=== PATIENT | female | born 1940 | race Caucasian/White ===

== ENCOUNTER 2018-01-30 15:20 | Inpatient (IN) ==
[2018-01-30 19:34] LABS: Hemoglobin 9.3 g/dL (11.5-15.4)
[2018-01-30 19:36] LABS: Hematocrit 31.9 % (35.3-44.9); Mean Corpuscular HGB Conc 29.2 g/dL (31.6-35.5); Mean Corpuscular Hemoglobin 21.2 pg (28.0-33.3); Mean Corpuscular Volume 72.8 fL (83.0-100.0); Mean Platelet Volume 8.8 fL (9.4-12.4); Platelet Count 305 K/mcL (140-400); Red Blood Count 4.38 M/mcL (3.82-4.97)
[2018-01-30 19:42] LABS: INR 1.5; Prothrombin Time 16.6 Seconds (9.4-12.1)
[2018-01-30 20:00] LABS: BUN/Creatinine Ratio 11 (6-26); Blood Urea Nitrogen 10 mg/dL (8-23); Calcium 9.5 mg/dL (8.6-10.3); Carbon Dioxide 26 mEq/L (23-29); Chloride 100 mEq/L (98-107); Glucose 234 mg/dL (70-105); Osmolality,Calculated 287 (280-300); Potassium 3.4 mEq/L (3.5-5.1); Sodium 135 mEq/L (136-145); eGFR For African Americans > 60 (> 60); eGFR For Non-African Americans 60 (> 60)
[2018-01-30 20:09] LABS: Basophils # 0.2 K/mcL (0.0-0.2); Lymphocytes # 0.9 K/mcL (0.6-4.6); Monocytes # 0.2 K/mcL (0.0-1.3); Neutrophils # 9.3 K/mcL (1.6-8.9); Platelet Estimate Normal (Normal)
[2018-01-30 20:10] LABS: Acanthocytes 1+ (Not Present); Hypochromasia Present (Not Present); Microcytosis Present (Not Present); Schistocytes 1+ (Not Present)
[2018-01-30 21:08] LABS: Bilirubin,Urine Negative (Negative); Blood,Urine Negative (Negative); Clarity,Urine Cloudy (Clear); Color,Urine Yellow (Yellow); Glucose,Urine (UA) 100 mg/dL (Normal); Ketones,Urine Negative (Negative); Leukocyte Esterase,Urine Moderate (Negative); Nitrite,Urine Negative (Negative); PH,Urine 6.5 pH Units (5.0-8.0); Protein,Urine Negative (Neg-Trace); Specific Gravity,Urine 1.016 (1.010-1.025); Urobilinogen,Urine Normal (Normal)
[2018-01-30 21:10] LABS: Bacteria,Urine None Seen per hpf (None-Few); Hyaline Casts,Urine None Seen per lpf (None-Few); Squamous Epithelial Cell,Urine Many per lpf (None-Few)
--- NOTE | 2018-01-30 21:38 | Emergency Department Note ---
Disposition Clinical Impression: Radius fracture Qualifiers: Encounter type: subsequent encounter Radius location: distal Fracture type: closed Fracture morphology: unspecified fracture morphology Laterality: right Fracture healing: with nonunion Qualified Code(s): S52.501K - Unspecified fracture of the lower end of right radius, subsequent encounter for closed fracture with nonunion Ulnar fracture Qualifiers: Encounter type: subsequent encounter Ulna location: distal Fracture type: closed Fracture morphology: unspecified fracture morphology Laterality: right Fracture healing: with nonunion Qualified Code(s): S52.601K - Unspecified fracture of lower end of right ulna, subsequent encounter for closed fracture with nonunion Anemia Qualifiers: Anemia type: unspecified type Qualified Code(s): D64.9 - Anemia, unspecified Disposition: Admitted As Inpatient Condition: Good Referrals: Kumar Ramos MD [Primary Care Provider] - Forms: ED Satisfaction Letter Time of Disposition: 21:47 General Adult HPI - General Chief complaint: ED Extremity Injury, Upper Stated complaint: Needs admitted Time Seen by Provider: 01/30/18 18:42 Source: patient, family Mode of arrival: wheelchair Limitations: no limitations Nursing Notes Reviewed: Yes Vital Signs Reviewed: Yes - History of Present Illness HPI Narrative: Female patient complaining of right arm pain. She has a splint on this arm at this time. She was diagnosed with a right arm fracture earlier today and was seen by Dr. Reece outpatient. She states that she is unable to care for herself at home and has no one to assist her with this. She is scheduled for surgery tomorrow on this extremity. Pain Scale: 10 - Related Data Home Medications Medication Instructions Recorded Confirmed Albuterol Sulfate [Albuterol 2 puff IH Q4H PRN 07/27/16 01/30/18 Inhaler] Apixaban [Eliquis] 5 mg PO BID 07/27/16 01/30/18 Atorvastatin Calcium [Lipitor] 80 mg PO HS 07/27/16 01/30/18 BuPROPion XL (24 HR) [Wellbutrin 150 mg PO DAILY 07/27/16 01/30/18 XL] Budesonide/Formoterol 80/4.5 2 puff IH BID 07/27/16 01/30/18 [Symbicort 80/4.5] Diltiazem HCl [Cardizem LA] 120 mg PO DAILY 07/27/16 01/30/18 Escitalopram [Lexapro] 20 mg PO DAILY 07/27/16 01/30/18 Pantoprazole Sodium [Protonix] 40 mg PO DAILY 07/27/16 01/30/18 Betamethasone Dipropionate 1 appl TP DAILY 01/30/18 01/30/18 Cetirizine HCl [Zyrtec] 10 mg PO DAILY PRN 01/30/18 01/30/18 Famotidine [Heartburn Prevention] 20 mg PO DAILY 01/30/18 01/30/18 Gabapentin [Neurontin] 100 mg PO HS PRN 01/30/18 01/30/18 Losartan/Hydrochlorothiazide 1 each PO DAILY 01/30/18 01/30/18 [Hyzaar 100-25 Tablet] Montelukast [Singulair] 10 mg PO HS 01/30/18 01/30/18 Triamcinolone Acet 0.1% CRM 1 appl TP BID 01/30/18 01/30/18 [Kenalog] hydrOXYzine pamoate [HydrOXYzine 25 mg PO HS 01/30/18 01/30/18 Pamoate] Allergies Allergy/AdvReac Type Severity Reaction Status Date / Time No Known Allergies Allergy Verified 01/30/18 11:00 All systems ED: reviewed and negative except as stated. Constitutional: Denies: fever ENT ED: Denies: throat pain, congestion Cardiovascular: Denies: chest pain, palpitations, syncope Respiratory: Denies: cough, dyspnea, wheezes Gastrointestinal: Denies: abdominal pain, nausea, vomiting, diarrhea Musculoskeletal: Reports: neck pain (From her fall). Denies: back pain Integumentary: Reports: other (Complaining of itching to her abdomen. No rash present). Denies: rash Neurological: Denies: headache Past Medical History - Past Medical History Attestation: Yes The following information was validated with the patient. Source: patient Medical history: Reports: atrial fibrillation, CVA, hyperlipidemia, hypertension Surgical history: Reports: no surgical history Psychiatric history: Reports: depression - Social History Smoking Status: Never smoker Smokeless Tobacco Status: No Alcohol use: Reports: none Drug use: Reports: none Physical Exam - General Limitations: no limitations General appearance: alert, in no apparent distress - Head Head exam: atraumatic, normocephalic, normal inspection - Eye Eye exam: Present: normal appearance, PERRL, EOMI - ENT ENT exam: normal exam, normal oropharynx, mucous membranes moist - Neck Neck exam: Present: normal inspection, full ROM, trachea midline - Chest Chest inspection: Present: normal inspection, symmetric chest wall rise. Absent : tenderness - Respiratory Respiratory exam: Present: normal lung sounds bilaterally. Absent: respiratory distress, accessory muscle use - Cardiovascular Cardiovascular exam: Present: regular rate, irregular rhythm, normal heart sounds - Abdominal Exam Abdominal exam: Present: soft, Non-Tender. Absent: tenderness, distention, guarding, rebound, rigidity, organomegaly - Extremities Exam Extremities exam: Present: normal capillary refill, other (Splinting to right upper extremity. Moving all other extremities normally.) - Back Exam Back exam: Present: normal inspection, full ROM. Absent: tenderness - Neurological Exam Neurological exam: Present: alert, oriented X3 - Psychiatric Psychiatric exam: Present: normal affect, normal mood - Skin Skin exam: Present: warm, dry, intact, normal color Course Course Narrative: Well-appearing female patient presenting to the emergency department complaining of right arm pain. She states that she is unable to take care of herself at home. She does have a fracture to her right arm that she is scheduled for surgery with Dr. Smith tomorrow. She saw him outpatient today. She was evaluated at this facility earlier today. We will admit patient to the hospital for preop clearance and inability to care for herself at home. - Consultations Consultation #1: Dr Bridges accepted the patient's stable condition. Time: 19:58 Vital Signs Temperature 97.9 F 01/30/18 15:50 Pulse Rate 61 01/30/18 15:50 Respiratory Rate 14 01/30/18 15:50 Blood Pressure 68/49 01/30/18 15:50 O2 Sat by Pulse Oximetry 93 01/30/18 15:50 Temperature 97.9 F 01/30/18 15:50 Pulse Rate 84 01/30/18 20:45 Respiratory Rate 16 01/30/18 20:45 Blood Pressure 138/62 01/30/18 20:45 O2 Sat by Pulse Oximetry 97 01/30/18 20:45 Oxygen Delivery Oxygen Delivery Room Air Medical Decision Making - Medical Records Medical records reviewed: Yes I reviewed the patient's medical records. - Lab Data Lab results reviewed: Yes I reviewed the patient's lab results. Result diagrams: 01/30/18 19:11 01/30/18 19:11 Lab Results 01/30/18 01/30/18 01/30/18 Range/Units 19:11 19:11 19:11 WBC 10.6 (4.3-11.1) K/mcL RBC 4.38 (3.82-4.97) M/mcL Hgb 9.3 L (11.5-15.4) g/dL Hct 31.9 L (35.3-44.9) % MCV 72.8 L (83.0-100.0) fL MCH 21.2 L (28.0-33.3) pg MCHC 29.2 L (31.6-35.5) g/dL RDW 15.0 H (11.5-14.5) % Plt Count 305 (140-400) K/mcL MPV 8.8 L (9.4-12.4) fL Seg Neutrophils % 88.0 % Lymphocytes % 8.0 % Monocytes % 2.0 % Basophils % 2.0 % Neutrophils # 9.3 H (1.6-8.9) K/mcL Lymphocytes # 0.9 (0.6-4.6) K/mcL Monocytes # 0.2 (0.0-1.3) K/mcL Basophils # 0.2 (0.0-0.2) K/mcL Platelet Estimate Normal (Normal) Hypochromasia Present A (Not Present) Microcytosis Present A (Not Present) Acanthocytes (Spur) 1+ A (Not Present) Schistocytes 1+ A (Not Present) PT 16.6 H (9.4-12.1) Seconds INR 1.5 Sodium 135 L (136-145) mEq/L Potassium 3.4 L (3.5-5.1) mEq/L Chloride 100 (98-107) mEq/L Carbon Dioxide 26 (23-29) mEq/L BUN 10 (8-23) mg/dL Creatinine 0.91 (0.60-1.20) mg/dL Est GFR ( Amer) > 60 (> 60) Est GFR (Non-Af Amer) 60 (> 60) BUN/Creatinine Ratio 11 (6-26) Glucose 234 H (70-105) mg/dL Calculated Osmolality 287 (280-300) Calcium 9.5 (8.6-10.3) mg/dL Urine Color (Yellow) Urine Clarity (Clear) Urine pH (5.0-8.0) pH Units Ur Specific [place] (1.010-1.025) Urine Protein (Neg-Trace) mg/dL Urine Glucose (UA) (Normal) mg/dL Urine Ketones (Negative) mg/dL Urine Blood (Negative) Urine Nitrite (Negative) Urine Bilirubin (Negative) Urine Urobilinogen (Normal) mg/dL Ur Leukocyte Esterase (Negative) Urine Microscopic RBC (0-3) per hpf Urine Microscopic WBC (0-3) per hpf Ur Squamous Epith Cells (None-Few) per lpf Urine Bacteria (None-Few) per hpf Hyaline Casts (None-Few) per lpf Ur Culture Indicated? (NO) 01/30/18 Range/Units 21:02 WBC (4.3-11.1) K/mcL RBC (3.82-4.97) M/mcL Hgb (11.5-15.4) g/dL Hct (35.3-44.9) % MCV (83.0-100.0) fL MCH (28.0-33.3) pg MCHC (31.6-35.5) g/dL RDW (11.5-14.5) % Plt Count (140-400) K/mcL MPV (9.4-12.4) fL Seg Neutrophils % % Lymphocytes % % Monocytes % % Basophils % % Neutrophils # (1.6-8.9) K/mcL Lymphocytes # (0.6-4.6) K/mcL Monocytes # (0.0-1.3) K/mcL Basophils # (0.0-0.2) K/mcL Platelet Estimate (Normal) Hypochromasia (Not Present) Microcytosis (Not Present) Acanthocytes (Spur) (Not Present) Schistocytes (Not Present) PT (9.4-12.1) Seconds INR Sodium (136-145) mEq/L Potassium (3.5-5.1) mEq/L Chloride (98-107) mEq/L Carbon Dioxide (23-29) mEq/L BUN (8-23) mg/dL Creatinine (0.60-1.20) mg/dL Est GFR ( Amer) (> 60) Est GFR (Non-Af Amer) (> 60) BUN/Creatinine Ratio (6-26) Glucose (70-105) mg/dL Calculated Osmolality (280-300) Calcium (8.6-10.3) mg/dL Urine Color Yellow (Yellow) Urine Clarity Cloudy A (Clear) Urine pH 6.5 (5.0-8.0) pH Units Ur Specific [place] 1.016 (1.010-1.025) Urine Protein Negative (Neg-Trace) mg/dL Urine Glucose (UA) 100 H (Normal) mg/dL Urine Ketones Negative (Negative) mg/dL Urine Blood Negative (Negative) Urine Nitrite Negative (Negative) Urine Bilirubin Negative (Negative) Urine Urobilinogen Normal (Normal) mg/dL Ur Leukocyte Esterase Moderate H (Negative) Urine Microscopic RBC 3-5 H (0-3) per hpf Urine Microscopic WBC 5-15 H (0-3) per hpf Ur Squamous Epith Cells Many H (None-Few) per lpf Urine Bacteria None Seen (None-Few) per hpf Hyaline Casts None Seen (None-Few) per lpf Ur Culture Indicated? NO. (NO) - EKG Data EKG #1 EKG attestation: Yes I reviewed and interpreted this EKG. EKG results narrative: Patient EKG was interpreted by myself without benefit of formal cardiology interpretation showing a rate of 73 bpm with atrial fibrillation and nonspecific ST changes, unchanged from prior EKG. Attestation Statement - Attestation Attestation: I examined this patient and my medical decision-making was reviewed with the Resident Physician, Dr. Salter. I agree with the documented findings, disposition and treatment plan as described except to the extent set forth below. Patient is a 69-year-old white female who presents to the emergency department for the second time today after her initial evaluation demonstrated a displaced right distal radius and ulna fracture. During her initial evaluation in the ED she had a closed reduction of this fracture and she was sent over to Dr. Reece' s office for evaluation. He determined that she could be scheduled for outpatient surgery tomorrow but due to family issues patient feels she is unable to care for herself at home tonight. Because of this situation she was sent back to the emergency department this afternoon was seen by the social services assistant who offered extended care facility care overnight physician patient adamantly refused and it was confirmed to the social services assistant that her daughter who is currently on vacation is unable to come home to care for her tonight. I agree with patient's physical exam findings as documented, vital signs are stable. Patient underwent preop testing for her repeat visit in preparation for surgery tomorrow and will be admitted to the hospitalist service overnight for assistance with ADLs. Patient will remain nothing by mouth for surgery. Patient's lab evaluation, EKG, were done in the emergency department. Case was discussed with hospitalist who accepted the patient for admission.
--- NOTE | 2018-01-31 00:21 | Internal Med History&Physical ---
Date of Encounter: 01/31/18 Time of Encounter: 00:18 Assessment and Plan (1) Radius fracture Current visit: Yes Status: Acute Mechanical fall with right on ulnar and radial fracture Qualifiers: Encounter type: subsequent encounter Radius location: distal Fracture type: closed Fracture morphology: unspecified fracture morphology Laterality : right Fracture healing: with nonunion Qualified Code(s): S52.501K - Unspecified fracture of the lower end of right radius, subsequent encounter for closed fracture with nonunion (2) Ulnar fracture Current visit: Yes Status: Acute Qualifiers: Encounter type: subsequent encounter Ulna location: distal Fracture type : closed Fracture morphology: unspecified fracture morphology Laterality: right Fracture healing: with nonunion Qualified Code(s): S52.601K - Unspecified fracture of lower end of right ulna, subsequent encounter for closed fracture with nonunion (3) Afib Current visit: No Status: Chronic Patient admitted fibrillation rate is well controlled Qualifiers: Atrial fibrillation type: paroxysmal Qualified Code(s): I48.0 - Paroxysmal atrial fibrillation (4) Anticoagulation adequate with anticoagulant therapy Current visit: No Status: Acute would hold anticoagulation (5) Hypertension Current visit: No Status: Chronic Chronic blood pressure well controlled Qualifiers: Hypertension type: essential hypertension Qualified Code(s): I10 - Essential (primary) hypertension Internal Medicine - H&P: HPI Chief complaint: radial and ulna fracture Admitted From: Emergency Dept Plans for Post Hospital Care: Home History of present illness: Ms. Green is a 77 year old female Patient with history of atrial fibrillation, CVA, high cholesterol, hypertension , patient sustained a mechanical fall presented to emergency room with right arm pain x-ray showed right radial and ulnar fracture patient was then sent to orthopedic office was seen bY Fr Amor and then sent back to the emergency room for admission for surgery plan for tomorrow. Fall was not syncope no loss of consciousness and no head injury. Past Med Surg Social Fam HX - Past Medical History Medical history: atrial fibrillation, CVA, hyperlipidemia, hypertension Psychiatric history: depression - Past Surgical History Surgical History: no surgical history - Social History Smoking Status: Never smoker Smokeless Tobacco Status: No Alcohol use: none Drug use: none - Family History Father Family Member Ethnicity: Non- Living Status: Hx Family Neuromuscular Disorders: Yes Internal Medicine - H&P: Meds Albuterol Sulfate [Albuterol Inhaler] 2 puff IH Q4H PRN 07/27/16 [History] Apixaban [Eliquis] 5 mg PO BID 07/27/16 [History] Atorvastatin Calcium [Lipitor] 80 mg PO HS 07/27/16 [History] BuPROPion XL (24 HR) [Wellbutrin XL] 150 mg PO DAILY 07/27/16 [History] Budesonide/Formoterol 80/4.5 [Symbicort 80/4.5] 2 puff IH BID 07/27/16 [History ] Diltiazem HCl [Cardizem LA] 120 mg PO DAILY 07/27/16 [History] Escitalopram [Lexapro] 20 mg PO DAILY 07/27/16 [History] Pantoprazole Sodium [Protonix] 40 mg PO DAILY 07/27/16 [History] Betamethasone Dipropionate 1 appl TP DAILY 01/30/18 [History] Cetirizine HCl [Zyrtec] 10 mg PO DAILY PRN 01/30/18 [History] Famotidine [Heartburn Prevention] 20 mg PO DAILY 01/30/18 [History] Gabapentin [Neurontin] 100 mg PO HS PRN 01/30/18 [History] Losartan/Hydrochlorothiazide [Hyzaar 100-25 Tablet] 1 each PO DAILY 01/30/18 [ History] Montelukast [Singulair] 10 mg PO HS 01/30/18 [History] Triamcinolone Acet 0.1% CRM [Kenalog] 1 appl TP BID 01/30/18 [History] hydrOXYzine pamoate [HydrOXYzine Pamoate] 25 mg PO HS 01/30/18 [History] 3 Allergy/AdvReac Type Severity Reaction Status Date / Time No Known Allergies Allergy Verified 01/30/18 11:00 All Systems PM: A 10-system review of systems was performed and is negative for pertinent findings except as documented above in the HPI. - EENT Eyes: no change in vision, no discharge, no pain, no photophobia Ears: no ear discharge, no ear pain, no tinnitus Nose, mouth and throat: no dysphagia, no nasal discharge, no neck pain, no sore throat - Cardiovascular Cardiovascular ROS IM: irregular heart rhythm, palpitations - Respiratory Respiratory: no cough, no dyspnea, no wheezing, no excessive phlegm production - Gastrointestinal Gastrointestinal: no abdominal pain, no diarrhea, no hematemesis, no hematochezia, no melena, no nausea, no vomiting - Genitourinary Genitourinary: no change in urinary stream, no dysuria, no flank pain, no hematuria - Musculoskeletal Musculoskeletal ROS IM: other - Constitutional Vitals: Temp Pulse Resp BP Pulse Ox 98.8 F 91 16 149/79 95 01/30/18 23:35 01/30/18 23:35 01/30/18 23:35 01/30/18 23:35 01/30/18 23:35 - Head Head exam: Present: atraumatic, normocephalic - Eye Eye exam: Present: PERRL, conjuntiva pink, sclera anicteric Pupils: Present: PERRL - Neck Neck exam general surgery: Present: supple, trachea midline. Absent: lymphadenopathy - Respiratory Respiratory exam: Present: CTAB. Absent: accessory muscle use, rales, rhonchi, wheezes - Cardiovascular Cardiovascular exam: Present: RRR, +S1, +S2. Absent: diastolic murmur, gallop, rubs, systolic murmur - GI/Abdominal GI/Abdominal exam: Present: normal bowel sounds, soft, no peritoneal signs. Absent: distended, tenderness Internal Med - H&P Results - Labs CBC & Chem 7: 01/30/18 19:11 01/30/18 19:11
[2018-01-31] MEDS ORDERED: Acetaminophen 325 MG TABLET PO PRN (00:25)
[2018-01-31] MEDS ORDERED: Naloxone 0.4 MG/ML INJ IVP PRN (00:25)
[2018-01-31] MEDS ORDERED: Loratadine 10 MG TABLET PO PRN (00:28)
[2018-01-31] MEDS ORDERED: Gabapentin 100 MG CAPSULE PO PRN (00:28)
[2018-01-31] MEDS: traMADol 50 MG TABLET PO PRN ×2 (01:49→20:24)
[2018-01-31] MEDS: 0.9 % Sodium Chloride 1,000 ML IVC SCH ×2 (01:49→23:23)
[2018-01-31] MEDS: *HR* HYDROmorphone (PF) 1 MG/ML SYRINGE IVP PRN ×2 (03:54→10:34)
[2018-01-31 05:24] LABS: Hematocrit 31.8 % (35.3-44.9); Hemoglobin 9.4 g/dL (11.5-15.4); Mean Corpuscular HGB Conc 29.6 g/dL (31.6-35.5); Mean Corpuscular Volume 71.1 fL (83.0-100.0); Platelet Count 329 K/mcL (140-400); Red Blood Count 4.47 M/mcL (3.82-4.97)
[2018-01-31 05:44] LABS: Alanine Aminotransferase 13 Units/L (7-52); Albumin/Globulin Ratio 1.6 (1.1-2.2); Alkaline Phosphatase 68 Units/L (34-104); Aspartate Amino Transferase 16 Units/L (13-39); BUN/Creatinine Ratio 11 (6-26); Bilirubin,Total 0.7 mg/dL (0.3-1.0); Blood Urea Nitrogen 8 mg/dL (8-23); Calcium 9.9 mg/dL (8.6-10.3); Carbon Dioxide 28 mEq/L (23-29); Chloride 100 mEq/L (98-107); Globulin 2.5 g/dL (2.4-3.5); Glucose 94 mg/dL (70-105); Magnesium 1.6 mg/dL (1.6-2.6); Osmolality,Calculated 282 (280-300); Potassium 3.2 mEq/L (3.5-5.1); Sodium 137 mEq/L (136-145); Total Protein 6.5 g/dL (6.4-8.9); eGFR For African Americans > 60 (> 60); eGFR For Non-African Americans > 60 (> 60)
[2018-01-31] MEDS: Budesonide/Formoterol 80/4.5 MDI IH SCH ×2 (08:29→19:58)
[2018-01-31] MEDS ORDERED: Diltiazem CD (24hr) 120 MG CAPSULE PO SCH (09:00)
[2018-01-31] MEDS ORDERED: BETAMETHASONE DIPROPIONATE TP SCH (09:00)
[2018-01-31] MEDS: Famotidine 20 MG TABLET PO SCH (10:33)
[2018-01-31] MEDS: Losartan/HCTZ 50-12.5 TABLET PO SCH (10:33)
[2018-01-31] MEDS: BuPROPion XL (24 HR) 150 MG TABLET PO SCH (10:34)
[2018-01-31] MEDS: Ipratropium/Albuterol Neb 3 ML IH SCH ×3 (11:21→19:58)
--- NOTE | 2018-01-31 12:14 | Cardiology Consult Note ---
Addendum entered and electronically signed by Ravinder Pyle CNP 01/31/18 14:12: Since pt is unable to achieve 4METS of activity, need pharmacologic stress test to further evaluate/risk stratify. Plan for stress test tomorrow. [id number] is 6 (Prior CVA, HTN, Age, Female). Recommend heparin gtt to bridge while off Eliquis since she is high CVA risk. Original Note: <Ravinder Pyle - Last Filed: 01/31/18 13:13> Date of Encounter: 01/31/18 Time of Encounter: 12:08 Assessment and Plan (1) Pre-operative cardiovascular examination Current Visit: Yes Status: Acute Pre-op cardiovascular risk stratification for right arm surgery. No hx of CAD or CHF. Cardiac hx includes A-Fib. Pt denies chest pain. Does endorse exertional dyspnea that is chronic. She is unable to achieve 4METS. 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 TTE to evaluate structure and function--already ordered. EKGs reviewed. EKG today shows diffuse ST depression compared to yesterday. A- Fib. Will discuss with Dr. Dominguez to determine if any further cardiac work-up is warranted aside from TTE. Await TTE results and evaluation by Dr. Dominguez to risk stratify. (2) Afib Current Visit: Yes Status: Chronic Known hx of A-Fib, diagnosed 3 years ago at time of CVA. 12 hr tele AVG HR 92. K 3.2--replace. Current HR at bedside low 100s. Will increase Cardizem CD from 120 to 240mg daily. Anticoagulated on Eliquis, held on admission given fall, fx and pending surgery. [id number] (Age, HTN, Female). High CVA risk not on anticoagulation. Recommend resuming Eliquis once okay with surgery. If recurrent falls on anticoagulation, will need to rediscuss risks and benefits of AC. Qualifiers: Atrial fibrillation type: unspecified Qualified Code(s): I48.91 - Unspecified atrial fibrillation Discussion w patient/family: The assessment and plan as outlined above was discussed with the patient and/or family members who expressed understanding and agreement. All questions were answered. Thank you for involving us in the care of your patient. Please call with any questions. I will discuss all the above with Dr. Dominguez and make changes as necessary. History of Present Illness Consult date: 01/31/18 Requesting physician: Liliana Marie Consult reason: A-Fib, Pre-op Chief complaint: right arm pain History of present illness: Ms. Green is a 77 year old female with PMH of atrial fibrillation anticoagulated on Eliquis, CVA 3 years ago, HLD, HTN, that presented to ED with right arm pain after a mechanical fall. Pt reports she got up to use the bathroom and lost her balance and fell. Denies syncope. X-ray showed right radial and ulnar fracture. Plan is to undergo surgery. Mild RVR noted this AM- HR low 100s. HR at bedside currently 80s-low 100s. Pt denies chest pain or any hx of CAD. She endorses exertional dyspnea, not new. She is not very active and does not climb stairs since having her CVA. No recent cardiac testing on file. EKG reviewed. A-Fib, rate 93, diffuse ST depression. Past Med Surg Social Fam HX - Past Medical History Medical history: atrial fibrillation, CVA, hyperlipidemia, hypertension Psychiatric history: depression - Past Surgical History Surgical History: no surgical history - Social History Smoking Status: Never smoker Smokeless Tobacco Status: No Alcohol use: none Drug use: none - Family History Father Family Member Ethnicity: Non- Living Status: Hx Family Neuromuscular Disorders: Yes Medications and Allergies Albuterol Sulfate [Albuterol Inhaler] 2 puff IH Q4H PRN 07/27/16 [History] Apixaban [Eliquis] 5 mg PO BID 07/27/16 [History] Atorvastatin Calcium [Lipitor] 80 mg PO HS 07/27/16 [History] BuPROPion XL (24 HR) [Wellbutrin XL] 150 mg PO DAILY 07/27/16 [History] Budesonide/Formoterol 80/4.5 [Symbicort 80/4.5] 2 puff IH BID 07/27/16 [History ] Diltiazem HCl [Cardizem LA] 120 mg PO DAILY 07/27/16 [History] Escitalopram [Lexapro] 20 mg PO DAILY 07/27/16 [History] Pantoprazole Sodium [Protonix] 40 mg PO DAILY 07/27/16 [History] Betamethasone Dipropionate 1 appl TP DAILY 01/30/18 [History] Cetirizine HCl [Zyrtec] 10 mg PO DAILY PRN 01/30/18 [History] Famotidine [Heartburn Prevention] 20 mg PO DAILY 01/30/18 [History] Gabapentin [Neurontin] 100 mg PO HS PRN 01/30/18 [History] Losartan/Hydrochlorothiazide [Hyzaar 100-25 Tablet] 1 each PO DAILY 01/30/18 [ History] Montelukast [Singulair] 10 mg PO HS 01/30/18 [History] Triamcinolone Acet 0.1% CRM [Kenalog] 1 appl TP BID 01/30/18 [History] hydrOXYzine pamoate [HydrOXYzine Pamoate] 25 mg PO HS 01/30/18 [History] 3 Allergy/AdvReac Type Severity Reaction Status Date / Time No Known Allergies Allergy Verified 01/30/18 11:00 All Systems Review: The remainder of the systems were reviewed and are negative - Cardiovascular Cardiovascular: as per HPI, dyspnea on exertion - Respiratory Respiratory: cough, dyspnea Physical Examination Vital Signs, Last 4 Hours Temp Pulse Resp BP Pulse Ox 01/31/18 11:25 18 93 01/31/18 10:35 98.1 F 94 14 154/88 93 01/31/18 08:29 18 165/86 91 Vital Signs Temp Pulse Resp BP Pulse Ox 01/31/18 11:25 18 93 01/31/18 10:35 98.1 F 94 14 154/88 93 01/31/18 08:29 18 165/86 91 01/31/18 07:23 98.3 F 89 15 165/86 90 01/31/18 04:35 18 90 01/31/18 03:13 99.6 F 94 16 170/89 95 01/30/18 23:35 98.8 F 91 16 149/79 95 01/30/18 20:45 84 16 138/62 97 01/30/18 15:50 97.9 F 61 14 68/49 93 Intake and Output 01/30/18 01/31/18 01/31/18 23:59 07:59 15:59 Other: # Voids 1 1 Weight 70.624 kg 70.125 kg Patient Weight 01/31/18 23:59 Weight 70.125 kg General: Conversant, No Apparent Distress HEENT: Atraumatic, Normocephaly, Mucus Membranes Moist Neck: No JVD, Normal carotid pulses Cardiac: Other (irregularly irregular rhythm, 2/6 murmur noted) Lungs: Other (diminished, mild wheezes) Neuro: Alert and responsive, No focal deficits noted Abdomen: Soft, Non-Tender Skin: No rashes noted on visualized skin Musculoskeletal: No Chest Wall Tenderness Extremities: No Clubbing, No Cyanosis, No Edema, Normal Pulses Results 01/31/18 04:17 01/31/18 04:17 Lab Results 01/31/18 01/31/18 04:17 04:17 WBC 11.1 Hgb 9.4 L Hct 31.8 L Plt Count 329 Sodium 137 Potassium 3.2 L Chloride 100 Carbon Dioxide 28 BUN 8 Creatinine 0.75 Glucose 94 Calcium 9.9 Magnesium 1.6 Total Bilirubin 0.7 AST 16 ALT 13 Alkaline Phosphatase 68 Short CBC 01/31/18 01/30/18 Range/Units 04:17 19:11 WBC 11.1 10.6 (4.3-11.1) K/mcL Hgb 9.4 L 9.3 L (11.5-15.4) g/dL Hct 31.8 L 31.9 L (35.3-44.9) % Plt Count 329 305 (140-400) K/mcL Neutrophils # 9.3 H (1.6-8.9) K/mcL BMP 01/31/18 01/30/18 Range/Units 04:17 19:11 Sodium 137 135 L (136-145) mEq/L Potassium 3.2 L 3.4 L (3.5-5.1) mEq/L Chloride 100 100 (98-107) mEq/L Carbon Dioxide 28 26 (23-29) mEq/L BUN 8 10 (8-23) mg/dL Creatinine 0.75 0.91 (0.60-1.20) mg/dL Glucose 94 234 H (70-105) mg/dL Calcium 9.9 9.5 (8.6-10.3) mg/dL Liver Function 01/31/18 Range/Units 04:17 Total Bilirubin 0.7 (0.3-1.0) mg/dL AST 16 (13-39) Units/L ALT 13 (7-52) Units/L Alkaline Phosphatase 68 (34-104) Units/L Albumin 4.0 (3.5-5.7) g/dL Urine 01/30/18 Range/Units 21:02 Urine Color Yellow (Yellow) Urine Clarity Cloudy A (Clear) Urine pH 6.5 (5.0-8.0) pH Units Ur Specific [place] 1.016 (1.010-1.025) Urine Protein Negative (Neg-Trace) mg/dL Urine Glucose (UA) 100 H (Normal) mg/dL Active Medications Acetaminophen (Tylenol) 650 mg PO Q6HR PRN PRN Reason: Mild Pain/Fever Stop: 08/02/18 00:26 Albuterol Sulfate (Albuterol Inhaler) 2 puff IH [id number] LOUISE Stop: 08/02/18 04:01 Last Admin: 01/31/18 11:24 Dose: Not Given Albuterol/Ipratropium (Duoneb) 3 ml IH [id number] LOUISE Stop: 08/02/18 12:01 Last Admin: 01/31/18 11:21 Dose: 3 ml Atorvastatin Calcium (Lipitor) 80 mg PO HS LOUISE Stop: 08/02/18 21:01 Budesonide/Formoterol Fumarate (Symbicort) 2 puff IH BIDRESP LOUISE PRN Reason: Protocol Stop: 08/02/18 10:01 Last Admin: 01/31/18 08:29 Dose: 2 puff Bupropion HCl (Wellbutrin Xl) 150 mg PO DAILY LOUISE Stop: 08/02/18 09:01 Last Admin: 01/31/18 10:34 Dose: 150 mg Diltiazem HCl (Cardizem Cd) 120 mg PO DAILY LOUISE Stop: 08/02/18 09:01 Last Admin: 01/31/18 10:34 Dose: 120 mg Escitalopram Oxalate (Lexapro) 20 mg PO DAILY LOUISE Stop: 08/02/18 09:01 Last Admin: 01/31/18 10:33 Dose: 20 mg Famotidine (Pepcid) 20 mg PO DAILY LOUISE PRN Reason: Protocol Stop: 08/02/18 09:01 Last Admin: 01/31/18 10:33 Dose: 20 mg Gabapentin (Neurontin) 100 mg PO HS PRN PRN Reason: Pain/Sleep Stop: 08/02/18 00:29 HCTZ/Losartan Potassium (Hyzaar 50/12.5) 2 each PO DAILY LOUISE Stop: 08/02/18 09:01 Last Admin: 01/31/18 10:33 Dose: 2 each Hydralazine HCl (Hydralazine) 10 mg IVP Q6HR PRN PRN Reason: Hypertension Stop: 08/02/18 08:09 Hydromorphone HCl (Dilaudid) 1 mg IVP Q6HR PRN; Protocol PRN Reason: Breakthrough Pain Stop: 08/02/18 03:36 Last Admin: 01/31/18 10:34 Dose: 1 mg Hydroxyzine Pamoate (Hydroxyzine Pamoate) 25 mg PO HS LOUISE Stop: 08/02/18 21:01 Sodium Chloride (0.9 % Sodium Chloride) 1,000 mls @ 75 mls/hr IVC .[id number] [facility] Stop: 02/01/18 03:09 Last Admin: 01/31/18 01:49 Dose: 75 mls/hr Loratadine (Claritin) 10 mg PO DAILY PRN PRN Reason: Allergy Symptoms Montelukast Sodium (Singulair) [address] [facility] Stop: 08/02/18 21:01 Naloxone HCl (Narcan) 0.4 mg IVP Q2MIN PRN PRN Reason: SEE COMMENTS Stop: 08/02/18 00:26 Omeprazole (Prilosec) [address] [facility] Stop: 08/02/18 06:31 Last Admin: 01/31/18 06:22 Dose: Not Given Tramadol HCl (Ultram) 50 mg PO Q6HR PRN PRN Reason: Moderate Pain Stop: 08/02/18 00:26 Last Admin: 01/31/18 01:49 Dose: 50 mg Triamcinolone Acetonide (Kenalog) 1 appl TP BID LOUISE PRN Reason: Protocol Stop: 08/02/18 09:01 - Imaging and Cardiology Echo: pending - EKG Interpretation EKG results cardiology: personally reviewed (A-FIb, rate 93, diffuse ST changes) , other (12 hr tele AVG HR 92, A-FIb) Consult Discharge Plan - Plan Referrals: Kumar Ramos MD [Primary Care Provider] - <Lisa Dominguez - Last Filed: 02/01/18 13:18> Date of Encounter: 02/01/18 - Attending Attestation I have personally performed a face to face evaluation on this patient. I have reviewed and agree with the care plan. History and Exam by me shows: 77 YOF with h/o CVA, Afib presents after a fall for right shoulder surgery. EKG shows ST depressions and patient describes MICHELLE. Patient limited in her mobility and as per her description less than 4 METS. ECHO pending and would recommend NST for abnormal EKG and MICHELLE. If surgery is urgent patient can proceed with high risk for cardiac events. In regards to her high risk of stroke with Afib off AC patient would benefit from IV heparin bridging due to high Chads Vasc score (previous CVA) Assessment and Plan Discussion w patient/family: The assessment and plan as outlined above was discussed with the patient and/or family members who expressed understanding and agreement. All questions were answered. Thank you for involving us in the care of your patient. Please call with any questions. History of Present Illness History of present illness: Ms. Green is a 77 year old female All Systems Review: The remainder of the systems were reviewed and are negative Results 02/01/18 11:12 02/01/18 04:05 Lab Results 01/31/18 01/31/18 01/31/18 14:14 14:14 21:47 WBC 8.5 Hgb 8.7 L Hct 29.3 L Plt Count 247 INR 1.3 APTT 30.7 82.4 H D Sodium Potassium Chloride Carbon Dioxide BUN Creatinine Glucose Calcium 02/01/18 02/01/18 02/01/18 04:05 04:05 04:05 WBC 9.1 Hgb 8.5 L Hct 29.0 L Plt Count 258 INR APTT 65.4 H Sodium 134 L Potassium 3.6 Chloride 100 Carbon Dioxide 28 BUN 7 L Creatinine 0.59 L Glucose 123 H Calcium 9.7 02/01/18 11:12 WBC Hgb 9.3 L Hct 31.8 L Plt Count INR APTT Sodium Potassium Chloride Carbon Dioxide BUN Creatinine Glucose Calcium
[2018-01-31] MEDS ORDERED: Diltiazem CD (24hr) 120 MG CAPSULE PO ONE (12:56)
[2018-01-31] MEDS ORDERED: *HR* Heparin 5,000 UNIT/ML VIAL IVP PRN ×2 (14:14)
[2018-01-31] MEDS ORDERED: *HR* Heparin 5,000 UNIT/ML VIAL IVP ONE (14:14)
[2018-01-31 15:07] LABS: Hematocrit 29.3 % (35.3-44.9); Hemoglobin 8.7 g/dL (11.5-15.4); Mean Corpuscular HGB Conc 29.7 g/dL (31.6-35.5); Mean Corpuscular Hemoglobin 21.3 pg (28.0-33.3); Mean Corpuscular Volume 71.6 fL (83.0-100.0); Mean Platelet Volume 8.4 fL (9.4-12.4); Platelet Count 247 K/mcL (140-400); Red Blood Count 4.09 M/mcL (3.82-4.97)
[2018-01-31 15:16] LABS: INR 1.3; Prothrombin Time 14.3 Seconds (9.4-12.1)
[2018-01-31 15:19] LABS: Activated Partial Thrombo Time 30.7 Seconds (26.0-36.0)
--- NOTE | 2018-01-31 15:38 | Orthopedic Consult Note ---
Date of Encounter: 01/31/18 Time of Encounter: 15:10 Assessment and Plan (1) Fracture of wrist Current Visit: No Status: Acute Closed fracture of distal radius and distal ulna. Recommend ORIF of both bones for better stabilization. I discussed the procedure as well as r/b/a with patient and she expressed understanding. I also discussed same with POA/ daughter Chani over the phone and received verbal consent. Second verbal consent given to Mary Bryant RN over the phone. Daughter is currently in [place] but plans to return tomorrow. Consent given to chief of surgery in [facility] office to be scanned into system. Continue to elevate and ice RUE. Leave splint in place until surgery. Continue ROM of fingers as tolerated. NWB. Pain control per hospitalist. Patient is still pending cardiac clearance. Tentative plan for surgery on based on clearance. She will need to be NPO midnight before. Qualifiers: Encounter type: initial encounter Fracture type: closed Laterality: right Qualified Code(s): S62.101A - Fracture of unspecified carpal bone, right wrist, initial encounter for closed fracture History of Present Illness Chief complaint: right wrist pain HPI: Ms. Green is a 77 year old female with PMHx of HTN, prior CVA and afib who presented to the ER yesterday with right wrist pain. She lost her balance yesterday and fell landing with right arm outstretched to catch herself. Denies hitting head or LOC. States she had instant pain to the right wrist and hand and has some tingling in fingers at this time. Currently has splint in place but would otherwise be unable to move due to pain. She was seen in the office Dr. Sandhu yesterday and determined could do outpatient surgery but she has no one to care for her at home. She returned to the ER and then admitted for pre- operative testing. Some of patient's speech is not clear and she did fall asleep multiple times during exam. Patient denies any other symptoms at this time but history is somewhat unreliable. Patient's daughter is her POA and I did discuss everything with her over the phone. She states she is currently in [place] but will return home tomorrow. Patient is right hand dominant. Past Med Surg Social Fam HX - Past Medical History Medical history: atrial fibrillation, CVA, hyperlipidemia, hypertension Psychiatric history: depression - Past Surgical History Surgical History: no surgical history - Social History Smoking Status: Never smoker Smokeless Tobacco Status: No Alcohol use: none Drug use: none - Family History Father Family Member Ethnicity: Non- Living Status: Hx Family Neuromuscular Disorders: Yes Medications and Allergies Albuterol Sulfate [Albuterol Inhaler] 2 puff IH Q4H PRN 07/27/16 [History] Apixaban [Eliquis] 5 mg PO BID 07/27/16 [History] Atorvastatin Calcium [Lipitor] 80 mg PO HS 07/27/16 [History] BuPROPion XL (24 HR) [Wellbutrin XL] 150 mg PO DAILY 07/27/16 [History] Budesonide/Formoterol 80/4.5 [Symbicort 80/4.5] 2 puff IH BID 07/27/16 [History ] Diltiazem HCl [Cardizem LA] 120 mg PO DAILY 07/27/16 [History] Escitalopram [Lexapro] 20 mg PO DAILY 07/27/16 [History] Pantoprazole Sodium [Protonix] 40 mg PO DAILY 07/27/16 [History] Betamethasone Dipropionate 1 appl TP DAILY 01/30/18 [History] Cetirizine HCl [Zyrtec] 10 mg PO DAILY PRN 01/30/18 [History] Famotidine [Heartburn Prevention] 20 mg PO DAILY 01/30/18 [History] Gabapentin [Neurontin] 100 mg PO HS PRN 01/30/18 [History] Losartan/Hydrochlorothiazide [Hyzaar 100-25 Tablet] 1 each PO DAILY 01/30/18 [ History] Montelukast [Singulair] 10 mg PO HS 01/30/18 [History] Triamcinolone Acet 0.1% CRM [Kenalog] 1 appl TP BID 01/30/18 [History] hydrOXYzine pamoate [HydrOXYzine Pamoate] 25 mg PO HS 01/30/18 [History] 3 Allergy/AdvReac Type Severity Reaction Status Date / Time No Known Allergies Allergy Verified 01/30/18 11:00 All Systems Reviewed: The remainder of the systems were reviewed and are negative - Constitutional Constitutional: as per HPI - Musculoskeletal Musculoskeletal: as per HPI Physical Exam - Constitutional Vitals: Temp Pulse Resp BP Pulse Ox 98.2 F 78 15 136/70 94 01/31/18 14:57 01/31/18 14:57 01/31/18 14:57 01/31/18 14:57 01/31/18 14:57 - Wrist & Hand right Location of pain: dorsal wrist, radial wrist (right forearm splint in place, mild swelling to fingers, decreased ROM of fingers, decreased sensation but otherwise grossly NV intact. brisk cap refill) Results - Labs Result Diagrams: 01/31/18 14:14 01/31/18 04:17 Labs: Abnormal lab results Hgb 8.7 g/dL (11.5-15.4) L 01/31/18 14:14 Hct 29.3 % (35.3-44.9) L 01/31/18 14:14 MCV 71.6 fL (83.0-100.0) L 01/31/18 14:14 MCH 21.3 pg (28.0-33.3) L 01/31/18 14:14 MCHC 29.7 g/dL (31.6-35.5) L 01/31/18 14:14 RDW 15.0 % (11.5-14.5) H 01/31/18 14:14 MPV 8.4 fL (9.4-12.4) L 01/31/18 14:14 Neutrophils # 9.3 K/mcL (1.6-8.9) H 01/30/18 19:11 Hypochromasia Present (Not Present) A 01/30/18 19:11 Microcytosis Present (Not Present) A 01/30/18 19:11 Acanthocytes (Spur) 1+ (Not Present) A 01/30/18 19:11 Schistocytes 1+ (Not Present) A 01/30/18 19:11 PT 14.3 Seconds (9.4-12.1) H 01/31/18 14:14 Potassium 3.2 mEq/L (3.5-5.1) L 01/31/18 04:17 Urine Clarity Cloudy (Clear) A 01/30/18 21:02 Urine Glucose (UA) 100 mg/dL (Normal) H 01/30/18 21:02 Ur Leukocyte Esterase Moderate (Negative) H 01/30/18 21:02 Urine Microscopic RBC 3-5 per hpf (0-3) H 01/30/18 21:02 Urine Microscopic WBC 5-15 per hpf (0-3) H 01/30/18 21:02 Ur Squamous Epith Cells Many per lpf (None-Few) H 01/30/18 21:02 H & H 01/31/18 01/31/18 Range/Units 04:17 14:14 Hgb 9.4 L 8.7 L (11.5-15.4) g/dL Hct 31.8 L 29.3 L (35.3-44.9) % All other labs normal. - Diagnostic results Wrist/Hand x-ray: report reviewed (Status post closed reduction of the comminuted intra-articular distal radius fracture. Slight dorsal displacement of the radial fragments by 4 mm with overall improved alignment from the prior exam. Impacted comminuted distal ulnar fracture.), image reviewed Consult Discharge Plan - Plan Referrals: Kumar Ramos MD [Primary Care Provider] - - Attending Attestation Case and plan of care discussed with supervising physician who was available for all aspects of care.
[2018-01-31] MEDS: Heparin 25,000 UNIT/500 ML D5W 25,000 UNIT/500 ML BAG IVC SCH (15:51)
[2018-01-31] MEDS: Triamcinolone Acet 0.1% CRM 15 GM TUBE TP SCH ×2 (16:03→22:18)
[2018-01-31] MEDS ORDERED: 0.9 % Sodium Chloride 500 ML ONE (16:21)
--- NOTE | 2018-01-31 16:35 | Electrocardiograph Report ---
[place] [id number] Test Date: 2018-01-30 Pat Name: Alanis Green Department: [id number] Room: 3B Gender: F Ore Puncher: DEEPAK : 1940 Requested By: Ashli Salter Order Number: [id number] Reading MD: Mason Mora DO Measurements Intervals [place] Rate: 73 P: TN: 0 QRS: 62 QRSD: 89 T: -31 QT: 396 QTc: 423 Interpretive Statements ATRIAL FIBRILLATION WITH ABERRANT CONDUCTION OR VENTRICULAR PREMATURE COMPLEXES NONSPECIFIC ST & T-WAVE ABNORMALITY Electronically Signed On 01-31-2018 16:33:29 EDT by Mason Mora DO
--- NOTE | 2018-01-31 18:08 | Internal Med Progress Note ---
Date of Encounter: 01/31/18 Time of Encounter: 11:40 - Assessment and plan (1) Radius fracture Current Visit: Yes Status: Acute Assessment and plan: Patient with right radius and ulna fracture from mechanical fall at home. Orthopedics is on board, preparing for surgery 02/02. Continue to ice, elevate, maintain splint and Shekhar wrap. Pain control as needed. Qualifiers: Encounter type: subsequent encounter Radius location: distal Fracture type: closed Fracture morphology: unspecified fracture morphology Laterality : right Fracture healing: with nonunion Qualified Code(s): S52.501K - Unspecified fracture of the lower end of right radius, subsequent encounter for closed fracture with nonunion (2) Ulnar fracture Current Visit: Yes Status: Acute Assessment and plan: Status post mechanical fall. Plan as above. Qualifiers: Encounter type: subsequent encounter Ulna location: distal Fracture type : closed Fracture morphology: unspecified fracture morphology Laterality: right Fracture healing: with nonunion Qualified Code(s): S52.601K - Unspecified fracture of lower end of right ulna, subsequent encounter for closed fracture with nonunion (3) Afib Current Visit: Yes Status: Chronic Assessment and plan: Chronic. Patient takes Cardizem LA 120 mg by mouth daily and is anticoagulated with Eliquis. Pt had a-fib RVR today, rate slowed on it's own, pt remains in a- fib. Cardiology consulted, they have started Heparin gtt to bridge from Eliquis since it has been stopped and pt will have pharmacologic stress test tomorrw. Pt denies chest pain, some shortness of breath recently. She denies feeling palpitations. Continue telemetry. NPO after midnight. Qualifiers: Atrial fibrillation type: unspecified Qualified Code(s): I48.91 - Unspecified atrial fibrillation (4) Anticoagulation adequate with anticoagulant therapy Current Visit: Yes Status: Chronic Assessment and plan: Eliquis stopped for surgery, pt has been started on Heparin gtt to bridge while pt is off of Eliquis due to pt's increased risk for CVA. (5) Hypertension Current Visit: Yes Status: Chronic Assessment and plan: Chronic. Continue home medications. Monitor vitals per admission orders. Qualifiers: Hypertension type: essential hypertension Qualified Code(s): I10 - Essential (primary) hypertension (6) DVT prophylaxis Current Visit: Yes Status: Acute Assessment and plan: Heparin GTT (7) Community acquired pneumonia Current Visit: Yes Status: Acute Assessment and plan: Patient with wheezing and anterior airways today, she appeared to be mildly diaphoretic, could also be due to pain. Test x-ray ordered, shows patchy right infrahilar opacity, could be atelectasis versus developing infiltrate. The patient's impending surgery, will treat with Rocephin and Zithromax. Duonebs every 4 hours Mucinex 600mg po BID O2 as needed to maintain sats greater than 92%. Qualifiers: Laterality: right Lung location: unspecified part of lung Qualified Code( s): J18.9 - Pneumonia, unspecified organism - Subjective Interval history: Patient was seen and assessed at 11:40 AM. She is resting quietly in bed, family member at bedside. Patient appears to be alert, verbally argumentative. Patient states that she only came to get her arm fixed and is not staying to do other testing. Despite repeated attempts to explain why we need to do chest x-ray and have cardiology see the patient, she still states that she wants to go home. Patient did have pulse in the 180s, by the time he reached the bedside she had returned to normal A. fib with rate between 90 and 100. She denies any chest pain, does report some shortness of breath with exertion at times. She denies any nausea or vomiting or diarrhea. No abdominal pain. She denies any headache or blurred vision. - Constitutional Vitals: Temp Pulse Resp BP Pulse Ox 98.2 F 78 15 136/70 94 01/31/18 14:57 01/31/18 14:57 01/31/18 15:56 01/31/18 14:57 01/31/18 15:56 General appearance: Present: A&O X 2, no acute distress, answers questions appropriately. Absent: cooperative - Head Head exam: Present: atraumatic, normal inspection, normocephalic - Eye Eye exam: Present: normal appearance, conjuntiva pink, sclera anicteric - Neck Neck exam general surgery: Present: supple, trachea midline. Absent: lymphadenopathy - Respiratory Respiratory exam: Present: CTAB, wheezes. Absent: accessory muscle use, chest wall tenderness, rales, rhonchi - Cardiovascular Cardiovascular exam: Present: RRR, +S1, +S2. Absent: diastolic murmur, gallop, rubs, systolic murmur - GI/Abdominal GI/Abdominal exam: Present: normal bowel sounds, soft, no peritoneal signs. Absent: distended, hepatomegaly, tenderness - Extremities Exam Extremities exam: Present: normal capillary refill, normal inspection, warm, radial pulses palpable and symmetrical. Absent: calf tenderness, cyanotic, pedal edema, tenderness - Expanded Upper Extremities Exam Upper Arm exam: Present: tenderness (Left upper arm with Ortho-Glass splint, Shekhar wrap due to humerus fracture.) - Neurological Exam Neurological exam: Present: alert, oriented X3, no focal deficits. Absent: facial droop, speech deficit - Skin Skin exam: Present: dry, intact, normal color, warm. Absent: rash Internal Medicine: Result - Labs CBC & Chem 7: 01/31/18 14:14 01/31/18 04:17 Labs: Short CBC 01/31/18 01/31/18 Range/Units 04:17 14:14 WBC 11.1 8.5 (4.3-11.1) K/mcL Hgb 9.4 L 8.7 L (11.5-15.4) g/dL Hct 31.8 L 29.3 L (35.3-44.9) % Plt Count 329 247 (140-400) K/mcL BMP 01/31/18 04:17 Sodium 137 Potassium 3.2 L Chloride 100 Carbon Dioxide 28 BUN 8 Creatinine 0.75 Glucose 94 Calcium 9.9 Liver Function 01/31/18 Range/Units 04:17 Total Bilirubin 0.7 (0.3-1.0) mg/dL AST 16 (13-39) Units/L ALT 13 (7-52) Units/L Alkaline Phosphatase 68 (34-104) Units/L Albumin 4.0 (3.5-5.7) g/dL - ABG Interpretation ABG results: PT/INR, D-dimer PT 14.3 Seconds (9.4-12.1) H 01/31/18 14:14 - Impressions Impressions Chest X-Ray 01/31/18 11:06 IMPRESSION: 1. Hypoinflated lungs. 2. Patchy right infrahilar opacity may represent atelectasis versus developing infiltrate. D/ / Víctor Mark MD / Víctor Mark MD Interpreting Provider: Víctor Mark MD Consult Discharge Plan - Plan Referrals: Kumar Ramos MD [Primary Care Provider] -
[2018-01-31] MEDS: Azithromycin 500 MG in D5% in Water 250 ML IVPB SCH (18:50)
[2018-01-31] MEDS: cefTRIAXone 1,000 MG in Water for inj. (sterile) 20 ML 10 ML IVP SCH (18:50)
[2018-01-31] MEDS: hydrOXYzine pamoate 25 MG CAPSULE PO SCH (20:23)
[2018-01-31] MEDS ORDERED: Saline Nasal Spray 44 ML BOTTLE NS PRN (21:43)
[2018-02-01] MEDS: Ipratropium/Albuterol Neb 3 ML IH SCH ×7 (00:02→23:31)
[2018-02-01] MEDS: *HR* HYDROmorphone (PF) 1 MG/ML SYRINGE IVP PRN (00:25)
[2018-02-01 04:23] LABS: Basophils # 0.1 K/mcL (0.0-0.2); Basophils % 0.8 %; Eosinophils # 0.5 K/mcL (0.0-0.6); Eosinophils % 5.6 %; Hemoglobin 8.5 g/dL (11.5-15.4); Immature Granulocytes % 0.3 % (0-4); Lymphocytes # 1.7 K/mcL (0.6-4.6); Lymphocytes % 18.4 %; Mean Corpuscular HGB Conc 29.3 g/dL (31.6-35.5); Mean Corpuscular Hemoglobin 20.9 pg (28.0-33.3); Mean Corpuscular Volume 71.3 fL (83.0-100.0); Mean Platelet Volume 8.7 fL (9.4-12.4); Monocytes # 1.1 K/mcL (0.0-1.3); Monocytes % 12.1 %; Neutrophils # 5.7 K/mcL (1.6-8.9); Platelet Count 258 K/mcL (140-400); Red Blood Count 4.07 M/mcL (3.82-4.97); Red Cell Distribution Width 15.1 % (11.5-14.5); Segmented Neutrophils % 62.8 %
[2018-02-01 04:44] LABS: BUN/Creatinine Ratio 12 (6-26); Blood Urea Nitrogen 7 mg/dL (8-23); Calcium 9.7 mg/dL (8.6-10.3); Carbon Dioxide 28 mEq/L (23-29); Chloride 100 mEq/L (98-107); Glucose 123 mg/dL (70-105); Osmolality,Calculated 277 (280-300); Potassium 3.6 mEq/L (3.5-5.1); Sodium 134 mEq/L (136-145); eGFR For African Americans > 60 (> 60); eGFR For Non-African Americans > 60 (> 60)
[2018-02-01] MEDS ORDERED: Regadenoson 0.4 MG/5 ML SYRINGE IVP ONE (05:24)
[2018-02-01] MEDS: Diltiazem CD (24hr) 120 MG CAPSULE PO SCH (11:16)
[2018-02-01] MEDS: BuPROPion XL (24 HR) 150 MG TABLET PO SCH (11:16)
[2018-02-01] MEDS: Losartan/HCTZ 50-12.5 TABLET PO SCH (11:16)
[2018-02-01] MEDS: Famotidine 20 MG TABLET PO SCH (11:16)
[2018-02-01] MEDS: cefTRIAXone 1,000 MG in Water for inj. (sterile) 20 ML 10 ML IVP SCH (11:17)
[2018-02-01] MEDS: Triamcinolone Acet 0.1% CRM 15 GM TUBE TP SCH ×2 (11:17→19:47)
[2018-02-01 11:22] LABS: Hematocrit 31.8 % (35.3-44.9); Hemoglobin 9.3 g/dL (11.5-15.4)
[2018-02-01] MEDS: traMADol 50 MG TABLET PO PRN (11:26)
[2018-02-01] MEDS: Budesonide/Formoterol 80/4.5 MDI IH SCH ×2 (11:48→19:51)
[2018-02-01 11:51] LABS: % Iron Saturation 4 % (15-50); Iron 18 mcg/dL (50-170); Transferrin 338 mg/dL (203-362)
--- NOTE | 2018-02-01 12:13 | Orthopedics Progress Note ---
Date of Encounter: 02/01/18 Time of Encounter: 11:20 - Assessment and Plan (1) Fracture of wrist Current Visit: No Status: Acute Closed fracture of distal radius and distal ulna. Recommend ORIF of both bones for better stabilization. I discussed the procedure as well as r/b/a with patient and she expressed understanding. I also discussed same with POA/ daughter Chani over the phone and received verbal consent. Second verbal consent given to Mary Bryant RN over the phone. Consent given to insolvency practitioner in [facility] office to be scanned into system. Daughter plans to return today from [place]. Continue to elevate and ice RUE. Leave splint in place until surgery. Continue ROM of fingers as tolerated. NWB. Pain control per hospitalist. Patient is still pending cardiac clearance. Tentative plan for surgery on based on clearance. NPO after midnight tonight. Qualifiers: Encounter type: initial encounter Fracture type: closed Laterality: right Qualified Code(s): S62.101A - Fracture of unspecified carpal bone, right wrist, initial encounter for closed fracture Subjective Principal diagnosis: Right distal radius and distal ulna fractures Interval history: Patient doing well today with no concerns about arm but she did voice that she wants to go home. I had to explain in multiple ways that we are doing the cardiac testing so she can be cleared for surgery and patient eventually expressed understanding. Daughter should be arriving back home today to be with patient which will likely help the situation. States she still has a lot of swelling in her fingers which is making it hard for her to move them. Denies numbness at this time. splint intact to right forearm. Objective Vital signs: Vital Signs Temp Pulse Resp BP Pulse Ox 02/01/18 06:49 98.4 F 75 15 156/79 90 02/01/18 04:30 97.9 F 98 16 148/76 91 02/01/18 04:22 16 91 02/01/18 00:02 15 92 01/31/18 23:00 98.7 F 90 12 150/72 92 01/31/18 19:58 16 92 01/31/18 19:44 98.8 F 82 16 146/69 98 01/31/18 15:56 15 94 01/31/18 14:57 98.2 F 78 15 136/70 94 Intake and Output 01/31/18 02/01/18 02/01/18 23:59 07:59 15:59 Intake Total 739 / 739 118 / 118 Output Total 1050 / 1050 300 / 300 Balance -311 / -311 -182 / -182 Intake: IV Fluids 379 / 379 118 / 118 Heparin 25,000 UNIT/500 ML D5W 119 / 119 118 / 118 25,000 unit In 500 ml @ 14 UNIT /KG/HR 19.635 mls/hr IVC .Q24H [facility] Rx#:[id number] Rocephin 1,000 MG In Water for inj. (sterile) 10 ML @ 300 mls/ hr IVP DAILY [facility] Rx#:[id number] Zithromax 500 mg In Dextrose 5% 250 / 250 250 ML @ 252 mls/hr IVPB Q24H [facility] Rx#:[id number] Oral 360 / 360 Output: Urine 1050 / 1050 300 / 300 Other: Weight 70.616 kg Patient Weight 02/01/18 23:59 Weight 70.616 kg - Labs CBC & BMP: 02/01/18 11:12 02/01/18 04:05 Labs: Abnormal lab results Hgb 9.3 g/dL (11.5-15.4) L 02/01/18 11:12 Hct 31.8 % (35.3-44.9) L 02/01/18 11:12 MCV 71.3 fL (83.0-100.0) L 02/01/18 04:05 MCH 20.9 pg (28.0-33.3) L 02/01/18 04:05 MCHC 29.3 g/dL (31.6-35.5) L 02/01/18 04:05 RDW 15.1 % (11.5-14.5) H 02/01/18 04:05 MPV 8.7 fL (9.4-12.4) L 02/01/18 04:05 Hypochromasia Present (Not Present) A 01/30/18 19:11 Microcytosis Present (Not Present) A 01/30/18 19:11 Acanthocytes (Spur) 1+ (Not Present) A 01/30/18 19:11 Schistocytes 1+ (Not Present) A 01/30/18 19:11 PT 14.3 Seconds (9.4-12.1) H 01/31/18 14:14 APTT 65.4 Seconds (26.0-36.0) H 02/01/18 04:05 Sodium 134 mEq/L (136-145) L 02/01/18 04:05 BUN 7 mg/dL (8-23) L 02/01/18 04:05 Creatinine 0.59 mg/dL (0.60-1.20) L 02/01/18 04:05 Glucose 123 mg/dL (70-105) H 02/01/18 04:05 Calculated Osmolality 277 (280-300) L 02/01/18 04:05 Urine Clarity Cloudy (Clear) A 01/30/18 21:02 Urine Glucose (UA) 100 mg/dL (Normal) H 01/30/18 21:02 Ur Leukocyte Esterase Moderate (Negative) H 01/30/18 21:02 Urine Microscopic RBC 3-5 per hpf (0-3) H 01/30/18 21:02 Urine Microscopic WBC 5-15 per hpf (0-3) H 01/30/18 21:02 Ur Squamous Epith Cells Many per lpf (None-Few) H 01/30/18 21:02 Consult Discharge Plan - Plan Referrals: Kumar Ramos MD [Primary Care Provider] -
[2018-02-01 12:35] LABS: Folate > 22.3 ng/mL (3.0-16.0)
[2018-02-01 12:36] LABS: Vitamin B12 498 pg/mL (250-1100)
--- NOTE | 2018-02-01 12:41 | Cardiology Progress Note ---
Date of Encounter: 02/01/18 Time of Encounter: 12:39 Assessment and Plan (1) Pre-operative cardiovascular examination Current Visit: Yes Status: Acute Pre-op cardiovascular risk stratification for right arm surgery planned for 02/02. No hx of CAD or CHF. Cardiac hx includes A-Fib. Pt denies chest pain. Does endorse exertional dyspnea that is chronic. She is unable to achieve 4METS. 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 TTE to evaluate structure and function-pending. EKGs reviewed. EKG yesterday showed diffuse ST depression compared to EKG on admission. A-Fib. Discussed with Dr. Dominguez, recommended pharmacologic nuclear stress test since pt is unable to achieve 4METS and has no prior ischemic eval. Stress test pending. Will risk stratify once TTE and stress test result. (2) Afib Current Visit: Yes Status: Chronic Known hx of A-Fib, diagnosed 3 years ago at time of CVA. 12 hr tele AVG HR 90. Increased Cardizem CD from 120 to 240mg yesterday. HR controlled. Anticoagulated on Eliquis, held on admission given fall, fx and pending surgery. [id number] (Age, HTN, Female, prior CVA). High CVA risk not on anticoagulation. Dr Dominguez recommends heparin gtt for bridging until Eliquis can be resumed. Recommend resuming Eliquis once okay with surgery. If recurrent falls on anticoagulation, will need to rediscuss risks and benefits of AC. Of note, HGB dropped to 8.5, but now back to 9.3 (same as admission). Monitor closely while on heparin. No signs or complaints of active bleeding. Qualifiers: Atrial fibrillation type: unspecified Qualified Code(s): I48.91 - Unspecified atrial fibrillation Discussion w patient/family: The assessment and plan as outlined above was discussed with the patient and/or family members who expressed understanding and agreement. All questions were answered. Thank you for involving us in the care of your patient. Please call with any questions. I will discuss all the above with Dr. Dominguez and make changes as necessary. Subjective Principal diagnosis: Right distal radius and distal ulna fractures Interval history: Pt denies acute cardiac complaints today. Denies chest pain or dyspnea. TTE and Nuclear stress test both pending. Tentative surgery date tomorrow. 12 hr tele AVG HR 90, A-Fib. Objective Vital Signs Temp Pulse Resp BP Pulse Ox 02/01/18 06:49 98.4 F 75 15 156/79 90 02/01/18 04:30 97.9 F 98 16 148/76 91 02/01/18 04:22 16 91 02/01/18 00:02 15 92 01/31/18 23:00 98.7 F 90 12 150/72 92 01/31/18 19:58 16 92 01/31/18 19:44 98.8 F 82 16 146/69 98 01/31/18 15:56 15 94 01/31/18 14:57 98.2 F 78 15 136/70 94 Intake and Output 01/31/18 02/01/18 02/01/18 23:59 07:59 15:59 Intake Total 739 / 739 118 / 118 Output Total 1050 / 1050 300 / 300 Balance -311 / -311 -182 / -182 Intake: IV Fluids 379 / 379 118 / 118 Heparin 25,000 UNIT/500 ML D5W 119 / 119 118 / 118 25,000 unit In 500 ml @ 14 UNIT /KG/HR 19.635 mls/hr IVC .Q24H [facility] Rx#:[id number] Rocephin 1,000 MG In Water for 10 10 inj. (sterile) 10 ML @ 300 mls/ hr IVP DAILY [facility] Rx#:[id number] Zithromax 500 mg In Dextrose 5% 250 / 250 250 ML @ 252 mls/hr IVPB Q24H [facility] Rx#:[id number] Oral 360 / 360 Output: Urine 1050 / 1050 300 / 300 Other: Weight 70.616 kg Patient Weight 02/01/18 23:59 Weight 70.616 kg General: Conversant, No Apparent Distress HEENT: Atraumatic, Normocephaly, Mucus Membranes Moist Neck: No JVD, Normal carotid pulses Cardiac: Other (irregularly irregular) Lungs: Normal Breath Sounds, No Wheeze, Rales, Rhonchi Neuro: Alert and responsive, No focal deficits noted Abdomen: Soft, Non-Tender Skin: No rashes noted on visualized skin Musculoskeletal: No Chest Wall Tenderness Extremities: No Clubbing, No Cyanosis, No Edema, Normal Pulses Results 02/01/18 11:12 02/01/18 04:05 Lab Results 01/31/18 01/31/18 01/31/18 14:14 14:14 21:47 WBC 8.5 Hgb 8.7 L Hct 29.3 L Plt Count 247 INR 1.3 APTT 30.7 82.4 H D Sodium Potassium Chloride Carbon Dioxide BUN Creatinine Glucose Calcium 02/01/18 02/01/18 02/01/18 04:05 04:05 04:05 WBC 9.1 Hgb 8.5 L Hct 29.0 L Plt Count 258 INR APTT 65.4 H Sodium 134 L Potassium 3.6 Chloride 100 Carbon Dioxide 28 BUN 7 L Creatinine 0.59 L Glucose 123 H Calcium 9.7 02/01/18 11:12 WBC Hgb 9.3 L Hct 31.8 L Plt Count INR APTT Sodium Potassium Chloride Carbon Dioxide BUN Creatinine Glucose Calcium Short CBC 02/01/18 02/01/18 01/31/18 Range/Units 11:12 04:05 14:14 WBC 9.1 8.5 (4.3-11.1) K/mcL Hgb 9.3 L 8.5 L 8.7 L (11.5-15.4) g/dL Hct 31.8 L 29.0 L 29.3 L (35.3-44.9) % Plt Count 258 247 (140-400) K/mcL Neutrophils # 5.7 (1.6-8.9) K/mcL BMP 02/01/18 Range/Units 04:05 Sodium 134 L (136-145) mEq/L Potassium 3.6 (3.5-5.1) mEq/L Chloride 100 (98-107) mEq/L Carbon Dioxide 28 (23-29) mEq/L BUN 7 L (8-23) mg/dL Creatinine 0.59 L (0.60-1.20) mg/dL Glucose 123 H (70-105) mg/dL Calcium 9.7 (8.6-10.3) mg/dL Impressions Chest X-Ray 01/31/18 11:06 IMPRESSION: 1. Hypoinflated lungs. 2. Patchy right infrahilar opacity may represent atelectasis versus developing infiltrate. D/ / Víctor Mark MD / Víctor Mark MD Interpreting Provider: Víctor Mark MD Active Medications Acetaminophen (Tylenol) 650 mg PO Q6HR PRN PRN Reason: Mild Pain/Fever Stop: 08/02/18 00:26 Albuterol Sulfate (Albuterol Inhaler) 2 puff IH [id number] [facility] Stop: 08/02/18 04:01 Last Admin: 02/01/18 11:48 Dose: Not Given Albuterol/Ipratropium (Duoneb) 3 ml IH [id number] [facility] Stop: 08/02/18 12:01 Last Admin: 02/01/18 11:49 Dose: Not Given Atorvastatin Calcium (Lipitor) 80 mg PO HS [facility] Stop: 08/02/18 21:01 Last Admin: 01/31/18 20:24 Dose: 80 mg Budesonide/Formoterol Fumarate (Symbicort) 2 puff IH BIDRESP [facility] PRN Reason: Protocol Stop: 08/02/18 10:01 Last Admin: 02/01/18 11:48 Dose: Not Given Bupropion HCl (Wellbutrin Xl) 150 mg PO DAILY [facility] Stop: 08/02/18 09:01 Last Admin: 02/01/18 11:16 Dose: 150 mg Diltiazem HCl (Cardizem Cd) 240 mg PO DAILY [facility] Stop: 08/03/18 09:01 Last Admin: 02/01/18 11:16 Dose: 240 mg Escitalopram Oxalate (Lexapro) 20 mg PO DAILY [facility] Stop: 08/02/18 09:01 Last Admin: 02/01/18 11:16 Dose: 20 mg Famotidine (Pepcid) 20 mg PO DAILY [facility] PRN Reason: Protocol Stop: 08/02/18 09:01 Last Admin: 02/01/18 11:16 Dose: 20 mg Gabapentin (Neurontin) 100 mg PO HS PRN PRN Reason: Pain/Sleep Stop: 08/02/18 00:29 HCTZ/Losartan Potassium (Hyzaar 50/12.5) 2 each PO DAILY [facility] Stop: 08/02/18 09:01 Last Admin: 02/01/18 11:16 Dose: 2 each Heparin Sodium (Porcine) (Heparin) 4,900 unit 70 unit/kg (4900 unit) IVP Q6HR PRN PRN Reason: SEE COMMENTS Stop: 08/02/18 14:15 Heparin Sodium (Porcine) (Heparin) 2,500 unit 35 unit/kg (2500 unit) IVP Q6H PRN PRN Reason: SEE COMMENTS Stop: 08/02/18 14:15 Hydralazine HCl (Hydralazine) 10 mg IVP Q6HR PRN PRN Reason: Hypertension Stop: 08/02/18 08:09 Hydromorphone HCl (Dilaudid) 1 mg IVP Q6HR PRN; Protocol PRN Reason: Breakthrough Pain Stop: 08/02/18 03:36 Last Admin: 02/01/18 00:25 Dose: 1 mg Hydroxyzine Pamoate (Hydroxyzine Pamoate) 25 mg PO HS [facility] Stop: 08/02/18 21:01 Last Admin: 01/31/18 20:23 Dose: 25 mg Heparin Sodium/Dextrose (Heparin 25,000 Unit/500 Ml D5w) 25,000 unit in 500 mls @ 19.635 mls/hr IVC .Q24H L[facility]; 14 UNIT/KG/HR PRN Reason: Protocol Stop: 08/02/18 14:16 Last Titration: 02/01/18 04:33 Dose: 14 unit/kg/hr, 19.635 mls/hr Azithromycin 500 mg/ Dextrose 250 mls @ 252 mls/hr IVPB Q24H [facility] Stop: 08/02/18 19:01 Last Infusion: 01/31/18 23:22 Dose: Infused Ceftriaxone Sodium 1,000 mg/ (Sterile Water) 10 mls @ 300 mls/hr IVP DAILY [facility] Stop: 08/02/18 19:01 Last Admin: 02/01/18 11:17 Dose: 300 mls/hr Loratadine (Claritin) 10 mg PO DAILY PRN PRN Reason: Allergy Symptoms Montelukast Sodium (Singulair) 10 mg PO HS L[facility]ISE Stop: 08/02/18 21:01 Last Admin: 01/31/18 20:24 Dose: 10 mg Naloxone HCl (Narcan) 0.4 mg IVP Q2MIN PRN PRN Reason: SEE COMMENTS Stop: 08/02/18 00:26 Omeprazole (Prilosec) 40 mg PO 0630 [facility] Stop: 08/02/18 06:31 Last Admin: 02/01/18 05:13 Dose: Not Given Sodium Chloride ([place] Nasal [place]) 2 spray NS Q2H PRN PRN Reason: Congestion Stop: 08/02/18 21:44 Last Admin: 01/31/18 22:25 Dose: 2 spray Tramadol HCl (Ultram) 50 mg PO Q6HR PRN PRN Reason: Moderate Pain Stop: 08/02/18 00:26 Last Admin: 02/01/18 11:26 Dose: 50 mg Triamcinolone Acetonide (Kenalog) 1 appl TP BID [facility] PRN Reason: Protocol Stop: 08/02/18 09:01 Last Admin: 02/01/18 11:17 Dose: Not Given - Imaging and Cardiology Stress Test: pending Echo: pending - EKG Interpretation EKG results cardiology: other (12 hr tele AVG HR 90, A-Fib) Consult Discharge Plan - Plan Referrals: Kumar Ramos MD [Primary Care Provider] -
[2018-02-01] MEDS ORDERED: Lidocaine -MPF 1% 2 ML VIAL ID PRN (14:53)
--- NOTE | 2018-02-01 16:01 | Event Note ---
Date of Encounter: 02/01/18 Time of Encounter: 15:59 - Cardiology Event Note Patient being seen for pre-op risk stratification. Unable to achieve 4 mets. Stress test with small, mild intensity inferolateral perfusion defect. TTE with LVEF preserved, no segmental wall motion abnormalities. Discussed and reviewed with , patient is at moderate to high risk for cardiovascular complications. Cardiology will sign off and will follow in outpatient setting. Follow up set. I personally discussed and reviewed with patient's daughter, Chani, per telephone. All questions answered. Daughter updated on moderate to high risk for cardiovascular complications.
--- NOTE | 2018-02-01 17:04 | Internal Med Progress Note ---
Date of Encounter: 02/01/18 Time of Encounter: 12:10 - Assessment and plan (1) Radius fracture Current Visit: Yes Status: Acute Assessment and plan: Patient with right radius and ulna fracture from mechanical fall at home prior to admission. Orthopedics is on board, preparing for surgery 02/02. Continue to ice, elevate, maintain splint and Shekhar wrap. Pain control as needed. Qualifiers: Encounter type: subsequent encounter Radius location: distal Fracture type: closed Fracture morphology: unspecified fracture morphology Laterality : right Fracture healing: with nonunion Qualified Code(s): S52.501K - Unspecified fracture of the lower end of right radius, subsequent encounter for closed fracture with nonunion (2) Ulnar fracture Current Visit: Yes Status: Acute Assessment and plan: Plan as above. Qualifiers: Encounter type: subsequent encounter Ulna location: distal Fracture type : closed Fracture morphology: unspecified fracture morphology Laterality: right Fracture healing: with nonunion Qualified Code(s): S52.601K - Unspecified fracture of lower end of right ulna, subsequent encounter for closed fracture with nonunion (3) Afib Current Visit: Yes Status: Chronic Assessment and plan: Continue Cardizem LA 120 mg, patient was anticoagulated with Eliquis. Patient was bridged to heparin. Patient had episode of A. fib RVR, cardiology was consulted for clearance for surgery. Stress test was ordered, positive for ischemia. Patient has declined LHC due to delay of orthopedic surgery for 1 month. Patient will consider LHC on outpatient basis after surgery. Cardiology has signed off, noted moderate to high risk of perioperative cardiovascular complications. Cardiology DENTAL LABORATORY TECHNICIAN spoke with patient, family member in room, as well his daughter in [place]. Continue heparin drip Continue Cardizem LA Continue telemetry Qualifiers: Atrial fibrillation type: unspecified Qualified Code(s): I48.91 - Unspecified atrial fibrillation (4) Anticoagulation adequate with anticoagulant therapy Current Visit: Yes Status: Chronic Assessment and plan: Eliquis was stopped for surgery, patient has been started on heparin drip depreciable patient is off Eliquis, patient has increased chads Vasko's or (5) Hypertension Current Visit: Yes Status: Chronic Assessment and plan: Chronic. Continue home medications. Continue to monitor vital signs. Qualifiers: Hypertension type: essential hypertension Qualified Code(s): I10 - Essential (primary) hypertension (6) DVT prophylaxis Current Visit: Yes Status: Acute Assessment and plan: Heparin drip. (7) Community acquired pneumonia Current Visit: Yes Status: Acute Assessment and plan: Patient reports productive cough with thick, clear sputum for approximately 2-3 weeks. Chest x-ray ordered yesterday shows patchy right infrahilar opacity, could be atelectasis versus developing infiltrate. Continue telemetry, continue Rocephin and Zithromax, DuoNeb every 4 hours, Mucinex 600 mg by mouth twice daily, O2 as needed to maintain sats greater than 92%. Patient is on room air today, maintaining sats well. Qualifiers: Laterality: right Lung location: unspecified part of lung Qualified Code( s): J18.9 - Pneumonia, unspecified organism - Time Spent With Patient less than 15 minutes - Subjective Interval history: Patient was seen and assessed at 1210 PM. She denies any chest pain, shortness of breath. She denies any nausea or vomiting or diarrhea. No abdominal pain. She denies any headache or blurred vision. Patient again was upset today about DELAY in surgery on her arm. She states that I am attempting to find things wrong with her to prevent her surgery. Patient and family member bedside are aware of positive stress test, daughter in [place] is aware of positive stress. Patient states that she may have outpatient LHC. Plan for surgery tomorrow. - Constitutional Vitals: Temp Pulse Resp BP Pulse Ox 98.0 F 92 15 114/66 96 02/01/18 14:49 02/01/18 14:49 02/01/18 15:36 02/01/18 14:49 02/01/18 15:36 General appearance: Present: A&O X 2, no acute distress, answers questions appropriately. Absent: cooperative - Head Head exam: Present: atraumatic, normal inspection, normocephalic - Eye Eye exam: Present: normal appearance, conjuntiva pink, sclera anicteric - Neck Neck exam general surgery: Present: normal inspection, supple, trachea midline. Absent: lymphadenopathy, tenderness - Respiratory Respiratory exam: Present: decreased breath sounds, CTAB, wheezes. Absent: accessory muscle use, chest wall tenderness, rales, respiratory distress, rhonchi Additional comments: Patient with faint wheezing heard at bilateral bases. - Cardiovascular Cardiovascular exam: Present: RRR, +S1, +S2. Absent: diastolic murmur, gallop, rubs, systolic murmur - GI/Abdominal GI/Abdominal exam: Present: normal bowel sounds, soft. Absent: distended, hepatomegaly, tenderness - Extremities Exam Extremities exam: Present: normal capillary refill, normal inspection, warm, radial pulses palpable and symmetrical. Absent: calf tenderness, cyanotic, pedal edema, tenderness - Neurological Exam Neurological exam: Present: alert, oriented X3, no focal deficits. Absent: facial droop, speech deficit - Skin Skin exam: Present: dry, intact, normal color, warm. Absent: rash Internal Medicine: Result - Labs CBC & Chem 7: 02/01/18 11:12 02/01/18 04:05 Labs: Short CBC 02/01/18 02/01/18 Range/Units 04:05 11:12 WBC 9.1 (4.3-11.1) K/mcL Hgb 8.5 L 9.3 L (11.5-15.4) g/dL Hct 29.0 L 31.8 L (35.3-44.9) % Plt Count 258 (140-400) K/mcL Neutrophils # 5.7 (1.6-8.9) K/mcL BMP 02/01/18 04:05 Sodium 134 L Potassium 3.6 Chloride 100 Carbon Dioxide 28 BUN 7 L Creatinine 0.59 L Glucose 123 H Calcium 9.7 - ABG Interpretation ABG results: PT/INR, D-dimer PT 14.3 Seconds (9.4-12.1) H 01/31/18 14:14 - Impressions Impressions Echocardiogram 02/01/18 11:02 Impressions: LVEF 60%. Indeterminate diastolic function. Normal right ventricular structure and function. Mild-moderate mitral regurgitation. Mild tricuspid regurgitation. No pulmonary hypertension. Left Ventricular Wall Motion: Rest Echo Findings All wall segments showed normal motion. Findings: Study Quality * Technically challenging exam - patient unable to cooperate. * Technical review due to_. ECG Findings * Atrial fibrillation. Left Ventricle * LVEF 60%. * Normal LV chamber size, wall thickness and function. * Indeterminate diastolic function. Right Ventricle * Normal right ventricular structure and function. Left Atrium * Severely dilated left atrium. Right Atrium * Moderately dilated right atrium. Mitral Valve * Normal mitral valve structure. * No mitral stenosis. * Mild-moderate mitral regurgitation. Aortic Valve * Aortic valve not well visualized. * No aortic stenosis. * Trace aortic regurgitation. Tricuspid Valve * Tricuspid valve not well visualized. * Mild tricuspid regurgitation. * Estimated RA pressure is 3 mmHg. * Estimated RVSP is 30 mmHg. * No pulmonary hypertension. Pulmonic Valve * Pulmonic valve is not well visualized. * No pulmonic stenosis. * No pulmonic regurgitation. Pulmonary Artery * Pulmonary artery not well visualized. Aorta * Normally sized aortic root. Pericardium * There is no pericardial effusion present. Interatrial Septum * No evidence of PFO by color Doppler. IVC * Normal IVC dimensions and inspiratory collapse. Consult Discharge Plan - Plan Referrals: Kumar Ramos MD [Primary Care Provider] -
[2018-02-01 17:29] LABS: Hematocrit 30.3 % (35.3-44.9)
[2018-02-01 17:53] LABS: Hematocrit 29.1 % (35.3-44.9); Hemoglobin 8.3 g/dL (11.5-15.4)
[2018-02-01] MEDS: hydrOXYzine pamoate 25 MG CAPSULE PO SCH (19:45)
[2018-02-01] MEDS: Azithromycin 500 MG in D5% in Water 250 ML IVPB SCH (19:45)
[2018-02-01] MEDS: Heparin 25,000 UNIT/500 ML D5W 25,000 UNIT/500 ML BAG IVC SCH (22:25)
[2018-02-02 00:59] LABS: Basophils # 0.1 K/mcL (0.0-0.2); Basophils % 0.6 %; Eosinophils # 0.5 K/mcL (0.0-0.6); Eosinophils % 5.3 %; Hematocrit 26.9 % (35.3-44.9); Hemoglobin 8.2 g/dL (11.5-15.4); Immature Granulocytes % 0.2 % (0-4); Lymphocytes # 1.7 K/mcL (0.6-4.6); Lymphocytes % 19.6 %; Mean Corpuscular HGB Conc 30.5 g/dL (31.6-35.5); Mean Corpuscular Hemoglobin 21.5 pg (28.0-33.3); Mean Corpuscular Volume 70.6 fL (83.0-100.0); Monocytes # 1.2 K/mcL (0.0-1.3); Monocytes % 13.8 %; Neutrophils # 5.3 K/mcL (1.6-8.9); Platelet Count 276 K/mcL (140-400); Red Blood Count 3.81 M/mcL (3.82-4.97); Red Cell Distribution Width 15.3 % (11.5-14.5); Segmented Neutrophils % 60.5 %
[2018-02-02 01:12] LABS: BUN/Creatinine Ratio 11 (6-26); Blood Urea Nitrogen 8 mg/dL (8-23); Carbon Dioxide 30 mEq/L (23-29); Chloride 98 mEq/L (98-107); Glucose 99 mg/dL (70-105); Osmolality,Calculated 276 (280-300); Potassium 3.2 mEq/L (3.5-5.1); Sodium 134 mEq/L (136-145); eGFR For African Americans > 60 (> 60); eGFR For Non-African Americans > 60 (> 60)
[2018-02-02] MEDS: Ipratropium/Albuterol Neb 3 ML IH SCH ×6 (04:07→23:43)
[2018-02-02] MEDS: *HR* HYDROmorphone (PF) 1 MG/ML SYRINGE IVP PRN (06:31)
[2018-02-02] MEDS: Budesonide/Formoterol 80/4.5 MDI IH SCH ×2 (07:47→19:49)
[2018-02-02] MEDS: cefTRIAXone 1,000 MG in Water for inj. (sterile) 20 ML 10 ML IVP SCH (08:04)
[2018-02-02] MEDS: BuPROPion XL (24 HR) 150 MG TABLET PO SCH (08:05)
[2018-02-02] MEDS: Famotidine 20 MG TABLET PO SCH (08:05)
[2018-02-02] MEDS: Diltiazem CD (24hr) 120 MG CAPSULE PO SCH (08:05)
[2018-02-02] MEDS: Losartan/HCTZ 50-12.5 TABLET PO SCH (08:06)
[2018-02-02] MEDS: Triamcinolone Acet 0.1% CRM 15 GM TUBE TP SCH ×2 (08:07→21:15)
--- NOTE | 2018-02-02 11:03 | Anesthesia Evaluation PreOp ---
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 History: CVA (CVA x 3, residual LLE weakness), Other (Depression) Other Medical History: Denies Any Significant HX Anesthesia History: No Prior Anesthetic Complications, Past Anesthesia (Robotic Cholecystectomy) : No Alcohol Use: none Drug use: none Medications and Allergies Albuterol Sulfate [Albuterol Inhaler] 2 puff IH Q4H PRN 07/27/16 [History] Apixaban [Eliquis] 5 mg PO BID 07/27/16 [History] Atorvastatin Calcium [Lipitor] 80 mg PO HS 07/27/16 [History] BuPROPion XL (24 HR) [Wellbutrin XL] 150 mg PO DAILY 07/27/16 [History] Budesonide/Formoterol 80/4.5 [Symbicort 80/4.5] 2 puff IH BID 07/27/16 [History ] Diltiazem HCl [Cardizem LA] 120 mg PO DAILY 07/27/16 [History] Escitalopram [Lexapro] 20 mg PO DAILY 07/27/16 [History] Pantoprazole Sodium [Protonix] 40 mg PO DAILY 07/27/16 [History] Betamethasone Dipropionate 1 appl TP DAILY 01/30/18 [History] Cetirizine HCl [Zyrtec] 10 mg PO DAILY PRN 01/30/18 [History] Famotidine [Heartburn Prevention] 20 mg PO DAILY 01/30/18 [History] Gabapentin [Neurontin] 100 mg PO HS PRN 01/30/18 [History] Losartan/Hydrochlorothiazide [Hyzaar 100-25 Tablet] 1 each PO DAILY 01/30/18 [ History] Montelukast [Singulair] 10 mg PO HS 01/30/18 [History] Triamcinolone Acet 0.1% CRM [Kenalog] 1 appl TP BID 01/30/18 [History] hydrOXYzine pamoate [HydrOXYzine Pamoate] 25 mg PO HS 01/30/18 [History] 3 Allergy/AdvReac Type Severity Reaction Status Date / Time No Known Allergies Allergy Verified 01/30/18 11:00 - Meds/Allergy Pre-op Review Medications Reviewed: Yes Allergies Reviewed: Yes Beta Blockers on Current Med List: No Anesthesia Results - Labs 02/02/18 00:23 02/02/18 00:23 Echocardiogram Name: Alanis Green Date of Study: 02/01/2018 EV/EV echocardiogram Impressions: LVEF 60%. Indeterminate diastolic function. Normal right ventricular structure and function. Mild-moderate mitral regurgitation. Mild tricuspid regurgitation. No pulmonary hypertension. - Imaging EKG: report reviewed (ATRIAL FIBRILLATION WITH ABERRANT CONDUCTION OR VENTRICULAR PREMATURE COMPLEXES NONSPECIFIC ST & T-WAVE ABNORMALITY Rate 73) Anesthesia Exam Vital Signs/O2 Sat, Most Current Temp Pulse Resp BP Pulse Ox 98.0 F 80 16 134/62 97 02/02/18 07:34 02/02/18 07:34 02/02/18 07:51 02/02/18 07:34 02/02/18 07:51 NPO (# of Hours): > 8 hrs Pain Scale: 0 Pain Scale Used: Numeric (1 - 10) - HEENT Pupil (Motor): Pupils equal, EOMI Mallampati: II Teeth: Missing Denture Type: Upper: Complete Oral Opening: Greater than 3 - TELEPHONE CLERKS SUPERVISOR LOC: Oriented TELEPHONE CLERKS SUPERVISOR Motor: Normal RUE, Normal LUE, Normal RLE, Normal Face, Deficit LLE TELEPHONE CLERKS SUPERVISOR Sensory: Normal: RUE, LUE, RLE, LLE, Face - Cardiac Rhythm: Irregular Murmur: None JVD: No Carotid Bruit: No - Pulmonary Breath Sounds: bilateral Clear Respiratory Effort: Symmetrical Anesthesia Assess/Plan ASA Score: 3 Modified Al[place]ira Scale for Level of Consciousness: Cooperative, oriented, and tranquil Anesthetic Plan: General, Regional Autologous Blood: Yes Monitoring Plan: Standard Monitors Recovery Plan: PACU
[2018-02-02] MEDS ORDERED: *HR* FentaNYL (PF) 100 MCG/2 ML VIAL ONE (13:50)
[2018-02-02] MEDS ORDERED: Bupivacaine/Clonidine Syringe 1 EACH SYRINGE ONE (15:10)
[2018-02-02] MEDS ORDERED: *HR* OxyCODONE Immed Rel 5 MG TABLET PO PRN ×2 (15:15→16:27)
[2018-02-02] MEDS ORDERED: ROPIVACAINE HCL/PF 0.5% 30 ML VIAL ONE (15:17)
--- NOTE | 2018-02-02 15:45 | Anesthesia Procedures ---
Date of Encounter: 02/02/18 Time of Encounter: 15:30 Procedures: Anesthesia - Nerve Block Procedure Date: 02/02/18 Time: 15:30 Allergies/Adv Reactions: NKA Pre-op Diagnosis: Right distal radius/ulna fracture Surgical Procedure: Right wrist ORIF Checklist: Correct Patient Identifier, Correct procedure, History checked Correct side: Right Blood Thinner: Yes (heparin stopped 0845) Monitor Applied: EKG, BP, Pulse Oximetry Supplemental Oxygen via Nasal Cannula (L/min): 2 Sedation: Versed (mg): 1 Sedation: Fentanyl (mcg): 100 Indication: Post Op Analgesia Pre-op Neuro Deficits: No Block Type: Infraclavicular Catheter placed: No Sterile Technique: Yes Ultrasound used: Yes Anatomy identified: Yes Visual spread of Local: Yes Neuro Stimulation: No Blood on Needle Aspiration: No Smooth Injection of Local: Yes Pain with Injection of Local: No Prep: Betadine Needle: 22 x 50 mm Stimuplex Local: 0.25% Bupivicaine w/Clonidine 20 mcg/cc Volume (cc): 30 Number of Attempts: 1 Complications: None/effective block Vitals: Vital Signs Temperature 97.9 F 01/30/18 15:50 Pulse Rate 61 01/30/18 15:50 Respiratory Rate 14 01/30/18 15:50 Blood Pressure 68/49 01/30/18 15:50 O2 Sat by Pulse Oximetry 93 01/30/18 15:50 Temperature 97.4 F L 02/02/18 11:47 Pulse Rate 70 02/02/18 15:39 Respiratory Rate 17 02/02/18 11:47 Blood Pressure 111/55 02/02/18 15:39 O2 Sat by Pulse Oximetry 96 02/02/18 15:39 Oxygen Delivery Oxygen Delivery Room Air
[2018-02-02] MEDS ORDERED: *HR* Propofol 200 MG/20 ML VIAL IVP ONE (15:58)
[2018-02-02] MEDS ORDERED: Lidocaine -MPF 4% 5 ML AMPUL ONE (15:59)
[2018-02-02] MEDS ORDERED: Lidocaine -MPF 2% 2 ML VIAL ONE ×2 (16:03→16:16)
[2018-02-02] MEDS ORDERED: Dexamethasone 4 MG/ML VIAL ONE (16:16)
[2018-02-02] MEDS ORDERED: Ondansetron 4 MG/2 ML VIAL ONE (16:16)
[2018-02-02] MEDS ORDERED: EPHEDrine 50 MG/ML VIAL ONE (16:20)
[2018-02-02] MEDS ORDERED: *HR* Labetalol 20 MG/4 ML SYRINGE IVP PRN (16:27)
[2018-02-02] MEDS ORDERED: MORPHINE SUL Oral CONC 10 MG/0.5 ML ORAL.SYG SL PRN (16:27)
[2018-02-02] MEDS ORDERED: Ondansetron 4 MG/2 ML VIAL IVP ONE (16:27)
[2018-02-02] MEDS ORDERED: Neostigmine Methylsulfate 3 MG/3 ML SYRINGE ONE (17:20)
--- NOTE | 2018-02-02 17:21 | Internal Med Progress Note ---
Date of Encounter: 02/02/18 Time of Encounter: 10:10 - Assessment and plan (1) Radius fracture Current Visit: Yes Status: Acute Assessment and plan: Patient with right radius and ulna fracture from mechanical fall at home. ORIF today. Pain control as needed. Qualifiers: Encounter type: subsequent encounter Radius location: distal Fracture type: closed Fracture morphology: unspecified fracture morphology Laterality : right Fracture healing: with nonunion Qualified Code(s): S52.501K - Unspecified fracture of the lower end of right radius, subsequent encounter for closed fracture with nonunion (2) Ulnar fracture Current Visit: Yes Status: Acute Assessment and plan: Status post mechanical fall. Plan as above. ORIF today. Qualifiers: Encounter type: subsequent encounter Ulna location: distal Fracture type : closed Fracture morphology: unspecified fracture morphology Laterality: right Fracture healing: with nonunion Qualified Code(s): S52.601K - Unspecified fracture of lower end of right ulna, subsequent encounter for closed fracture with nonunion (3) Afib Current Visit: Yes Status: Chronic Assessment and plan: Chronic. Rate controlled. Continue Heparin gtt after surgery. Continue telemetry. Qualifiers: Atrial fibrillation type: unspecified Qualified Code(s): I48.91 - Unspecified atrial fibrillation (4) Anticoagulation adequate with anticoagulant therapy Current Visit: Yes Status: Chronic Assessment and plan: Eliquis stopped for surgery, pt has been started on Heparin gtt to bridge while pt is off of Eliquis due to pt's increased risk for CVA. Continue and restart Eliquis after surgery. (5) Hypertension Current Visit: Yes Status: Chronic Assessment and plan: Chronic. Continue home medications. Monitor vitals per admission orders. Qualifiers: Hypertension type: essential hypertension Qualified Code(s): I10 - Essential (primary) hypertension (6) DVT prophylaxis Current Visit: Yes Status: Acute Assessment and plan: Heparin GTT, resume Eliquis after surgery (7) Community acquired pneumonia Current Visit: Yes Status: Acute Assessment and plan: Patient with wheezing and anterior airways today, overall appears to be improving Continue IV antibiotics Duonebs every 4 hours Mucinex 600mg po BID O2 as needed to maintain sats greater than 92%. Qualifiers: Laterality: right Lung location: unspecified part of lung Qualified Code( s): J18.9 - Pneumonia, unspecified organism - Time Spent With Patient less than 15 minutes - Subjective Interval history: Patient was seen and assessed at 1010 AM. She denies any chest pain, shortness of breath. She denies any nausea or vomiting or diarrhea or abdominal pain. She denies any headache or blurred vision. Patient was drowsy, arouses easily. She reports that she is going to surgery later today. At this time, 1720 p.m. patient is not in her room and is in surgery. - Constitutional Vitals: Temp Pulse Resp BP Pulse Ox 97.4 F L 70 17 111/55 96 02/02/18 11:47 02/02/18 15:39 02/02/18 11:47 02/02/18 15:39 02/02/18 15:39 General appearance: Present: A&O X 2, pleasant, no acute distress, answers questions appropriately. Absent: cooperative - Head Head exam: Present: atraumatic, normocephalic - Eye Eye exam: Present: normal appearance, conjuntiva pink, sclera anicteric - Neck Neck exam general surgery: Present: normal inspection, supple, trachea midline. Absent: lymphadenopathy, tenderness - Respiratory Respiratory exam: Present: CTAB. Absent: accessory muscle use, rales, rhonchi, wheezes - Cardiovascular Cardiovascular exam: Present: RRR, +S1, +S2. Absent: diastolic murmur, gallop, rubs, systolic murmur - GI/Abdominal GI/Abdominal exam: Present: normal bowel sounds, soft. Absent: distended, hepatomegaly, tenderness - Extremities Exam Extremities exam: Present: normal capillary refill, normal inspection, warm, radial pulses palpable and symmetrical. Absent: calf tenderness, cyanotic, pedal edema, tenderness - Neurological Exam Neurological exam: Present: alert, oriented X3, no focal deficits. Absent: facial droop, speech deficit - Skin Skin exam: Present: dry, intact, normal color, warm. Absent: rash Internal Medicine: Result - Labs CBC & Chem 7: 02/02/18 00:23 02/02/18 00:23 Labs: Short CBC 02/01/18 02/01/18 02/02/18 Range/Units 16:47 17:35 00:23 WBC 8.7 (4.3-11.1) K/mcL Hgb 9.0 L 8.3 L 8.2 L (11.5-15.4) g/dL Hct 30.3 L 29.1 L 26.9 L (35.3-44.9) % Plt Count 276 (140-400) K/mcL Neutrophils # 5.3 (1.6-8.9) K/mcL BMP 02/02/18 00:23 Sodium 134 L Potassium 3.2 L Chloride 98 Carbon Dioxide 30 H BUN 8 Creatinine 0.70 Glucose 99 Calcium 10.0 - ABG Interpretation ABG results: PT/INR, D-dimer PT 14.3 Seconds (9.4-12.1) H 01/31/18 14:14 Consult Discharge Plan - Plan Referrals: Kumar Ramos MD [Primary Care Provider] -
[2018-02-02] MEDS: Azithromycin 500 MG in D5% in Water 250 ML IVPB SCH (20:30)
[2018-02-02] MEDS: hydrOXYzine pamoate 25 MG CAPSULE PO SCH (20:36)
--- NOTE | 2018-02-02 21:06 | Operative Note ---
Date of procedure: 02/02/18 Pre-op diagnosis: Right distal radius intra-articular fracture, 3+ and distal ulna fracture Post-op diagnosis: other (Right distal radius intra-articular fracture with 3 distal fragments and comminuted distal ulna fracture) Procedure: Right wrist open reduction internal fixation of distal radius Implants: [employer]keletal [employer] Geminus plate Anesthesia: MAC, regional Surgeon: Edgardo Sandhu Was there an assistant branch operations manager present: No Estimated blood loss (cc): 4 Tourniquet Time (Minutes): 45 Specimen: 0 Condition: stable Disposition: PACU Procedure in Detail: The patient received IV antibiotics in the holding area and also underwent an axillary block by the anesthesia department. The patient was brought into the operating room and placed on the OR table in supine position with the affected upper extremity in a hand table. The patient received MAC. A tourniquet was placed on the arm close axilla and the upper extremity was then prepped and draped in usual sterile fashion. A timeout was performed. The extremity was then elevated, exsanguinated with an Shekhar wrap and the tourniquet was raised to a pressure of 250 mmHg. A 6 cm longitudinal incision was made over the volar radial aspect of the wrist , directly over the FCR tendon ending at the distal wrist flexion crease. The FCR sheath was split down the midline, the tendon was retracted over medially and the base of the sheath was also split the midline. The deep fascia and the FPL muscle/tendon was also retraction medially exposing the pronator quadratus. This was then elevated off in an L-shaped manner subperiosteally, exposing the fracture site. The distal fracture fragments were mobilized as a unit, and reduced with the use of a freer elevator, and provisionally pinned in place using a 0.062 K wire driven down from the tip of the radial styloid into the proximal shaft. Next a 4 hole right sided narrow plate was applied to the volar surface and secured with a bone screw through the slotted hole. Once we had appropriate position plate, it was further secured with a locking screw in hole #4 in the metaphyseal bone. The distal fragment was held against the plate restoring volar tilt, and temporary fixation wires were placed in the radial and ulnar columns securing the distal fragment. Next a compression screw was then placed distally and the ulnar column further securing the distal fragment. The remaining holes were then filled with locking screws in standard technique, using variable angle as needed. The K wires were removed and these holes were also filled with locking screws. The remaining holes in the shaft of the plate were then filled with locking screws in standard technique. The K wire was removed. Final fluoroscopy shots were taken and saved; checking in AP, lateral, facet views, and a 45 degree supination view making sure the screws were not within the joint. Once satisfactory, the wound was irrigated with normal saline and the pronator quadratus was tacked back down in place with 3-0 Vicryl [id number] sutures. The distal ulna was visualized under fluoroscopy. There was significant comminution and displacement of fragments. Only with the wrist in the PA view with the forearm pronated, the distal ulna aligned well. There was significant displacement with the forearm supinated with an AP view. Due to the degree of comminution, it was decided that the patient will be casted with mild pronation. Should the fracture fragments not heal, the patient will require a timeout procedure. The tourniquet was deflated, once again irrigating the wound and obtaining hemostasis with the bipolar electrocautery. The skin incision was closed with 5 -0 nylon mattress and simple sutures. Sterile dressings were applied and the patient placed into a sugar tong splint, in slight pronation. Patient was taken to the recovery room in stable condition. The patient will be seen at postoperative week #1 for dressing changes and placed into a long arm cast, and approximately 45 degrees pronation.
[2018-02-03] MEDS: Ipratropium/Albuterol Neb 3 ML IH SCH ×4 (03:21→15:40)
[2018-02-03] MEDS: Budesonide/Formoterol 80/4.5 MDI IH SCH (07:58)
[2018-02-03] MEDS: BuPROPion XL (24 HR) 150 MG TABLET PO SCH (08:55)
[2018-02-03] MEDS: Famotidine 20 MG TABLET PO SCH (08:55)
[2018-02-03] MEDS: Losartan/HCTZ 50-12.5 TABLET PO SCH (08:55)
[2018-02-03] MEDS: Diltiazem CD (24hr) 120 MG CAPSULE PO SCH (08:55)
[2018-02-03] MEDS: Triamcinolone Acet 0.1% CRM 15 GM TUBE TP SCH (08:57)
[2018-02-03] MEDS: cefTRIAXone 1,000 MG in Water for inj. (sterile) 20 ML 10 ML IVP SCH (09:00)
--- NOTE | 2018-02-03 10:59 | Electrocardiograph Report ---
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
[2018-02-03 12:25] VITALS: BP 143/61
[2018-02-03] MEDS ORDERED: Apixaban 5 MG TABLET PO ONE (14:15)
--- NOTE | 2018-02-03 14:28 | Discharge Summary ---
- NOTES TO OUTPATIENT PROVIDER Notes to Outpatient Provider: Pt will follow up with ortho for recheck and long arm cast in one week. New YANETH, repeat H and H ordered for 3 days after discharge. Results to PCP. She has been started on FeSO4 325mg po BID. No change in hgb after surgery. Orders not resulted at time of discharge: Pending orders 01/31/18 14:14 NM barney perf SPECT multi [NM] Routine 02/01/18 08:15 Occult Blood,Stool [BF] Stat 02/04/18 04:00 Basic Metabolic Panel AM 0400 Complete Blood Count [HEME] AM 0400 Date of Encounter: 02/03/18 Time of Encounter: 08:40 - Discharge Diagnosis (1) Radius fracture Priority: Primary Status: Acute Comments: Radius and ulnar fracture from mechanical fall at home prior to arrival. ORIF 02/02/[address] Cadena. Patient doing well, positive range of motion to fingers, normal sensation. Mild edema. Patient wearing a sling, Ortho-Glass splint with Shekhar wrap. Patient will follow up in orthopedic office in 7 days for a wound check and long arm splint application. Fluoroscopy 02/02/18 17:55 IMPRESSION: Intraprocedural fluoroscopic spot images as above. See separate procedure report for more information. D/ / Salvador Martin MD / Salvador Martin MD Interpreting Provider: Salvador Martin MD Wrist X-Ray 02/02/18 17:55 IMPRESSION: Intraprocedural fluoroscopic spot images as above. See separate procedure report for more information. D/ / Salvador Martin MD / Salvador Martin MD Interpreting Provider: Salvador Martin MD Qualifiers: Encounter type: subsequent encounter Radius location: distal Fracture type: closed Fracture morphology: unspecified fracture morphology Laterality : right Fracture healing: with nonunion Qualified Code(s): S52.501K - Unspecified fracture of the lower end of right radius, subsequent encounter for closed fracture with nonunion (2) Ulnar fracture Priority: Secondary Status: Acute Comments: Plan as above. Qualifiers: Encounter type: subsequent encounter Ulna location: distal Fracture type : closed Fracture morphology: unspecified fracture morphology Laterality: right Fracture healing: with nonunion Qualified Code(s): S52.601K - Unspecified fracture of lower end of right ulna, subsequent encounter for closed fracture with nonunion (3) Afib Priority: Secondary Status: Chronic Comments: Chronic. Rate controlled. Heparin drip has been stopped, will start Eliquis home dose today prior to discharge. Qualifiers: Atrial fibrillation type: unspecified Qualified Code(s): I48.91 - Unspecified atrial fibrillation (4) Anticoagulation adequate with anticoagulant therapy Priority: Secondary Status: Chronic Comments: Heparin gtt stopped. Eliquis restarted at home dose prior to discharge. (5) Hypertension Priority: Secondary Status: Chronic Comments: Chronic. Continue home medication. Qualifiers: Hypertension type: essential hypertension Qualified Code(s): I10 - Essential (primary) hypertension (6) Community acquired pneumonia Priority: Secondary Status: Acute Comments: Lungs are clear and diminished. Pt is on room air and is in no distress. Pt is improving. Continue po antibiotics to continue course at home. Mucinex 600mg po BID at home. Qualifiers: Laterality: right Lung location: unspecified part of lung Qualified Code( s): J18.9 - Pneumonia, unspecified organism (7) Anemia Priority: Secondary Status: Acute Comments: Pt with YANETH. Iron 18, % sat 4. Pt started on FeSo4 325mg po BID with meals as well as Colace 100mg po BID. Pt will need to follow up for repeat H and H in 3 days, results to PCP. Qualifiers: Anemia type: iron deficiency Qualified Code(s): D50.8 - Other iron deficiency anemias (8) DVT prophylaxis Priority: Secondary Status: Acute Comments: Heparin gtt during admission, Eliquis will be started prior to discharge. Hospital course: Ms. Green is a 77 year old female with PMH of a-fib, HTN, depression, S/P lap maria fernanda who presented to the ED with c/o right arm pain s/p mechanical fall at home. Pt with right radius and ulna fracture. Pt required cardiac clearance due to episode of a-fib RVR. Cardiology was consulted, ordered a stress test which was positive for ischemia. Pt opted to have surgery and put LHC on hold. Pt denies chest pain and will continue her home dose of Eliquis. Also of interest, pt newly diagnosed with YANETH and was started on FeSo4 and Colace. She will need to follow up with PCP in the next few weeks for a repeat H and H. Pt is stable and appropriate for discharge. Discharge discussed with: patient, family - Time Spent with Patient Total time spent providing and/or coordinating discharge services: Less than 30 minutes - Discharge Medications Prescriptions: Azithromycin [Zithromax] 250 mg PO DAILY #2 tablet Docusate [Colace] 100 mg PO BID #60 capsule Ferrous Sulfate 325 mg PO BIDWM #60 tablet GuaiFENesin ER [Mucinex] 600 mg PO BID PRN #30 tbbp.12hr PRN Reason: Cough Home Medications: Albuterol Sulfate [Albuterol Inhaler] 2 puff IH Q4H PRN 07/27/16 [History] Apixaban [Eliquis] 5 mg PO BID 07/27/16 [History] Atorvastatin Calcium [Lipitor] 80 mg PO HS 07/27/16 [History] BuPROPion XL (24 HR) [Wellbutrin Xl] 150 mg PO DAILY 07/27/16 [History] Budesonide/Formoterol 80/4.5 [Symbicort 80/4.5] 2 puff IH BID 07/27/16 [History ] Diltiazem HCl [Cardizem LA] 120 mg PO DAILY 07/27/16 [History] Escitalopram [Lexapro] 20 mg PO DAILY 07/27/16 [History] Pantoprazole Sodium [Protonix] 40 mg PO DAILY 07/27/16 [History] Betamethasone Dipropionate 1 appl TP DAILY 01/30/18 [History] Cetirizine HCl [Zyrtec] 10 mg PO DAILY PRN 01/30/18 [History] Famotidine [Heartburn Prevention] 20 mg PO DAILY 01/30/18 [History] Gabapentin [Neurontin] 100 mg PO HS PRN 01/30/18 [History] Losartan/Hydrochlorothiazide [Hyzaar 100-25 Tablet] 1 each PO DAILY 01/30/18 [ History] Montelukast [Singulair] 10 mg PO HS 01/30/18 [History] Triamcinolone Acet 0.1% CRM [Kenalog] 1 appl TP BID 01/30/18 [History] hydrOXYzine pamoate [HydrOXYzine Pamoate] 25 mg PO HS 01/30/18 [History] Apixaban [Eliquis] 5 mg PO BID tablet 02/03/18 [Rx] Azithromycin [Zithromax] 250 mg PO DAILY #2 tablet 02/03/18 [Rx] Docusate [Colace] 100 mg PO BID #60 capsule 02/03/18 [Rx] Ferrous Sulfate 325 mg PO BIDWM #60 tablet 02/03/18 [Rx] GuaiFENesin ER [Mucinex] 600 mg PO BID PRN #30 tbbp.12hr 02/03/18 [Rx] Allergies/Adverse Reactions: 3 Allergy/AdvReac Type Severity Reaction Status Date / Time No Known Allergies Allergy Verified 01/30/18 11:00 Date of admission: 01/31/18 00:25 Primary care physician: Kumar Ramos MD Consults: 01/31/18 00:30 Consult to Orthopedic Surgery [CONS] Routine Consulting Provider: [facility] Reason for Consult: radial and ulnar fracture Time Notified: 00:31 Call Completed: No 01/31/18 11:03 Consult to Cardiology [CONS] Routine Comment: Consulting Provider: Cardiology Janet Reason for Consult: Afib rvr. Surgical clearence Time Notified: 11:04 Call Completed: Yes 02/01/18 14:53 Consult to Invasive Line Access Team [CONS] Routine Reason for Consult: patient has limited acsess. Lab has a hard time sticking patient, patient only has one usable arm. Possible ortho sx planned. Line Type: EPIV PICC line indications: Limited vascular access Discharging clinician: Liliana Marie Anticipated date of discharge: 02/03/18 - Constitutional Vitals: Temp Pulse Resp BP Pulse Ox 98.0 F 88 17 143/61 93 02/03/18 12:24 02/03/18 12:24 02/03/18 12:24 02/03/18 12:24 02/03/18 12:24 General appearance: Present: A&O X 2, pleasant, no acute distress, answers questions appropriately. Absent: cooperative - Head Head exam: Present: atraumatic, normal inspection, normocephalic - Eye Eye exam: Present: normal appearance, conjuntiva pink, sclera anicteric - Neck Neck exam general surgery: Present: supple, trachea midline. Absent: lymphadenopathy, tenderness - Respiratory Respiratory exam: Present: CTAB. Absent: accessory muscle use, rales, respiratory distress, rhonchi, wheezes - Cardiovascular Cardiovascular exam: Present: RRR, +S1, +S2. Absent: diastolic murmur, gallop, rubs, systolic murmur - GI/Abdominal GI/Abdominal exam: Present: normal bowel sounds, soft. Absent: distended, hepatomegaly, tenderness - Extremities Exam Extremities exam: Present: normal capillary refill, normal inspection, warm, radial pulses palpable and symmetrical. Absent: calf tenderness, cyanotic, pedal edema, tenderness - Expanded Upper Extremities Exam General: Absent: normal inspection Upper Arm exam: Present: swelling Forearm wrist exam: Present: swelling. Absent: normal inspection - Neurological Exam Neurological exam: Present: alert, oriented X3, no focal deficits. Absent: facial droop, speech deficit - Skin Skin exam: Present: dry, intact, normal color, warm. Absent: rash - Patient Status Disposition: Home, Self-Care Condition: Good Functional capacity at discharge: independent ambulation Overall status at discharge: patient is not back to baseline - Ambulatory Orders Ambulatory Orders: Hemoglobin and Hematocrit [HEME] Time Frame: 3 Days, Facility: [facility], Location: [facility] - Discharge Instructions Follow Up With: Mary Kwong PAC [Physician [employer]] - (Patient needs to be seen by this provider on February 09. This appointment has been webrequested.) Kumar Ramos MD [Primary Care Provider] - Additional Instructions: Please follow up with Dr. Cadena as scheduled in one week for a recheck and for your splint to be applied. Return to the ER as needed for any other problems or concerns, or if your symptoms return or worsen. Take your medications as directed, your new prescriptions are at your pharmacy. Return to your normal activities and diet as tolerated - Diet and Activity Activity: increase activity as tolerated Diet: advance to your usual diet - VTE Documentation of Mechanical Device: Intermittent pneumatic compression device
[2018-02-03 15:27] LABS: Basophils % 0.2 %; Mean Platelet Volume 8.9 fL (9.4-12.4)
[2018-02-03 15:30] LABS: Eosinophils % 0.3 %; Hematocrit 27.7 % (35.3-44.9); Hemoglobin 8.3 g/dL (11.5-15.4); Immature Granulocytes % 0.5 % (0-4); Immature Platelets 1.1 % (1.1-6.1); Lymphocytes % 8.1 %; Mean Corpuscular Hemoglobin 21.4 pg (28.0-33.3); Mean Corpuscular Volume 71.4 fL (83.0-100.0); Monocytes # 1.5 K/mcL (0.0-1.3); Monocytes % 12.5 %; Neutrophils # 9.3 K/mcL (1.6-8.9); Platelet Count 368 K/mcL (140-400); Red Blood Count 3.88 M/mcL (3.82-4.97); Red Cell Distribution Width 15.6 % (11.5-14.5); Segmented Neutrophils % 78.4 %
--- NOTE | 2018-02-03 15:34 | Orthopedics Progress Note ---
Date of Encounter: 02/03/18 Time of Encounter: 15:31 Subjective Principal diagnosis: Right distal radius and distal ulna fractures Interval history: Patient is comfortable with mild discomfort, sensation is coming back to the hand after the block Right upper extremity: Sugar tong splint in place, fair range of motion of digits, this incision site hand, good cap refill Assessment: Postoperative day #1 status post right distal radius ORIF, stable Plan: Discharge home, nonweightbearing to right upper extremity. Patient encouraged to digital range of motion exercises. Continue sling. Do not remove splint. Ice to wrist for 1 hour every 6 hours Follow-up with Mary Kwong PA-C on Monday, February 09 Objective Vital signs: Vital Signs Temp Pulse Resp BP Pulse Ox 02/03/18 12:24 98.0 F 88 17 143/61 93 02/03/18 11:21 16 143/61 95 02/03/18 08:15 98.5 F 83 17 121/63 100 02/03/18 07:57 16 143/61 98 02/03/18 03:21 97.6 F 92 16 109/67 96 02/02/18 23:43 16 98 02/02/18 23:26 98.1 F 86 17 123/67 97 02/02/18 21:35 98 F 84 15 114/64 94 02/02/18 20:35 98.3 F 93 15 127/73 96 02/02/18 19:49 16 92 02/02/18 19:35 98.2 F 86 15 124/68 95 02/02/18 19:05 98.1 F 90 16 123/62 95 02/02/18 18:59 98.2 F 73 16 127/73 96 02/02/18 18:14 97.9 F 78 16 113/89 94 02/02/18 18:04 77 18 135/71 02/02/18 17:54 73 16 123/71 100 02/02/18 17:44 97.2 F L 78 20 125/66 96 02/02/18 15:39 70 111/55 96 Intake and Output 02/02/18 02/03/18 02/03/18 23:59 07:59 15:59 Output Total 605 / 605 700 / 700 Balance -605 / -605 -700 / -700 Output: Urine 600 / 600 700 / 700 Estimated Blood Loss 5 / 5 Other: Meal NPO # Voids 1 Weight 74.752 kg Patient Weight 02/03/18 23:59 Weight 74.752 kg - Labs CBC & BMP: 02/02/18 00:23 02/02/18 00:23 Labs: Abnormal lab results RBC 3.81 M/mcL (3.82-4.97) L 02/02/18 00:23 Hgb 8.2 g/dL (11.5-15.4) L 02/02/18 00:23 Hct 26.9 % (35.3-44.9) L 02/02/18 00:23 MCV 70.6 fL (83.0-100.0) L 02/02/18 00:23 MCH 21.5 pg (28.0-33.3) L 02/02/18 00:23 MCHC 30.5 g/dL (31.6-35.5) L 02/02/18 00:23 RDW 15.3 % (11.5-14.5) H 02/02/18 00:23 MPV 9.0 fL (9.4-12.4) L 02/02/18 00:23 Hypochromasia Present (Not Present) A 01/30/18 19:11 Microcytosis Present (Not Present) A 01/30/18 19:11 Acanthocytes (Spur) 1+ (Not Present) A 01/30/18 19:11 Schistocytes 1+ (Not Present) A 01/30/18 19:11 PT 14.3 Seconds (9.4-12.1) H 01/31/18 14:14 APTT 78.7 Seconds (26.0-36.0) H 02/02/18 07:57 Sodium 134 mEq/L (136-145) L 02/02/18 00:23 Potassium 3.2 mEq/L (3.5-5.1) L 02/02/18 00:23 Carbon Dioxide 30 mEq/L (23-29) H 02/02/18 00:23 Calculated Osmolality 276 (280-300) L 02/02/18 00:23 Iron 18 mcg/dL (50-170) L 02/01/18 11:12 % Saturation 4 % (15-50) L 02/01/18 11:12 Folate > 22.3 ng/mL (3.0-16.0) H 02/01/18 11:12 Urine Clarity Cloudy (Clear) A 01/30/18 21:02 Urine Glucose (UA) 100 mg/dL (Normal) H 01/30/18 21:02 Ur Leukocyte Esterase Moderate (Negative) H 01/30/18 21:02 Urine Microscopic RBC 3-5 per hpf (0-3) H 01/30/18 21:02 Urine Microscopic WBC 5-15 per hpf (0-3) H 01/30/18 21:02 Ur Squamous Epith Cells Many per lpf (None-Few) H 01/30/18 21:02 - VTE Documentation of Mechanical Device: Intermittent pneumatic compression device Consult Discharge Plan - Plan Additional Instructions: Please follow up with Dr. Cadena as scheduled in one week for a recheck and for your splint to be applied. Return to the ER as needed for any other problems or concerns, or if your symptoms return or worsen. Take your medications as directed, your new prescriptions are at your pharmacy. Return to your normal activities and diet as tolerated Referrals: Mary Kwong PAC [Physician Fisher Mussel] - (Patient needs to be seen by this provider on February 09. This appointment has been webrequested.) Kumar Ramos MD [Primary Care Provider] - Prescriptions: Azithromycin [Zithromax] 250 mg PO DAILY #2 tablet Docusate [Colace] 100 mg PO BID #60 capsule Ferrous Sulfate 325 mg PO BIDWM #60 tablet GuaiFENesin ER [Mucinex] 600 mg PO BID PRN #30 tbbp.12hr PRN Reason: Cough
[2018-02-03 15:59] LABS: Hypochromasia Present (Not Present); Platelet Estimate Normal (Normal)
[2018-02-04] MEDS ORDERED: Apixaban 5 MG TABLET PO SCH (09:00)
--- NOTE | 2018-02-04 09:48 | Electrocardiograph Report ---
[address] [place] [address] Test Date: 2018-01-31 Pat Name: Alanis Green Department: 113 Room: 3B Gender: F Warp Yarn Sorter: : 1940 Requested By: Liliana Marie Order Number: [id number] Reading MD: Mason Mora DO Measurements Intervals [place] Rate: 93 P: CO: 0 QRS: 59 QRSD: 92 T: 267 QT: 322 QTc: 373 Interpretive Statements ATRIAL FIBRILLATION ST DEVIATION AND MODERATE T-WAVE ABNORMALITY, CONSIDER LATERAL ISCHEMIA ST DEVIATION AND MODERATE T-WAVE ABNORMALITY, CONSIDER INFERIOR ISCHEMIA Electronically Signed On 02-04-2018 9:47:10 EDT by Mason Mora DO
== END 2018-02-03 17:20 | disposition home or self-care (01) | DRG 510 ==
LOC: 3BNU 15:20 → EMEROO 15:20 → 3BNU 22:32
PROVIDERS: ADMIT Internal Medicine Cardiovascular Disease; ATTEND Registered Nurse

== ENCOUNTER 2019-02-10 11:18 | Inpatient (IN) ==
--- NOTE | 2019-02-10 11:48 | Emergency Department Note ---
Disposition Clinical Impression: Diverticulitis, Perforation bowel Disposition: Admitted As Inpatient Condition: Fair Referrals: Kumar Ramos MD [Primary Care Provider] - Forms: ED Satisfaction Letter, Work/School Release Time of Disposition: 15:17 Abdominal Pain HPI - General Chief Complaint: ED Abdominal Pain Stated Complaint: Abdominal Pain Time Seen by Provider: 02/10/19 11:32 Source: patient, family, EMS Mode of arrival: EMS Limitations: no limitations Nursing Notes Reviewed: Yes Vital Signs Reviewed: Yes - History of Present Illness HPI Narrative: Ms. Green is a 78-year old female who presents to the ED for evaluation of a 1-week history of lower abdominal pain. She states that the pain has been increasing, and is present when she sits down. She endorses dysuria, urinary frequency, urgency, and malodorous urine. She reports poor PO intake over the last week due to decreased appetite and subjective overnight fevers. She denies any vomiting. Pt Subjective Complaint: abdominal pain Onset (ago): day(s) Consistency: intermittent Location: RLQ Pain Scale: 3 Associated symptoms: Reports: dysuria, other (poor appetite) Treatments prior to arrival: none - Related Data Home Medications Medication Instructions Recorded Confirmed Albuterol Sulfate [Albuterol 2 puff IH Q4H PRN 07/27/16 01/30/18 Inhaler] Apixaban [Eliquis] 5 mg PO BID 07/27/16 01/30/18 Atorvastatin Calcium [Lipitor] 80 mg PO HS 07/27/16 01/30/18 BuPROPion XL (24 HR) [Wellbutrin 150 mg PO DAILY 07/27/16 01/30/18 Xl] Budesonide/Formoterol 80/4.5 2 puff IH BID 07/27/16 01/30/18 [Symbicort 80/4.5] Diltiazem HCl [Cardizem LA] 120 mg PO DAILY 07/27/16 01/30/18 Escitalopram [Lexapro] 20 mg PO DAILY 07/27/16 01/30/18 Pantoprazole Sodium [Protonix] 40 mg PO DAILY 07/27/16 01/30/18 Betamethasone Dipropionate 1 appl TP DAILY 01/30/18 01/30/18 Cetirizine HCl [Zyrtec] 10 mg PO DAILY PRN 01/30/18 01/30/18 Famotidine [Heartburn Prevention] 20 mg PO DAILY 01/30/18 01/30/18 Gabapentin [Neurontin] 100 mg PO HS PRN 01/30/18 01/30/18 Losartan/Hydrochlorothiazide 1 each PO DAILY 01/30/18 01/30/18 [Hyzaar 100-25 Tablet] Montelukast [Singulair] 10 mg PO HS 01/30/18 01/30/18 Triamcinolone Acet 0.1% CRM 1 appl TP BID 01/30/18 01/30/18 [Kenalog] hydrOXYzine pamoate [HydrOXYzine 25 mg PO HS 01/30/18 01/30/18 Pamoate] Previous Rx's Medication Instructions Recorded Apixaban [Eliquis] 5 mg PO BID tablet 02/03/18 Azithromycin [Zithromax] 250 mg PO DAILY #2 tablet 02/03/18 Docusate [Colace] 100 mg PO BID #60 capsule 02/03/18 Ferrous Sulfate 325 mg PO BIDWM #60 tablet 02/03/18 GuaiFENesin ER [Mucinex] 600 mg PO BID PRN #30 tbbp.12hr 02/03/18 Allergies Allergy/AdvReac Type Severity Reaction Status Date / Time No Known Allergies Allergy Verified 01/30/18 11:00 All systems ED: reviewed and negative except as stated. Constitutional: Denies: fever, chills, weakness, weight change Eyes: Denies: eye pain, eye discharge, vision change Cardiovascular: Denies: chest pain, palpitations, dyspnea on exertion, edema, syncope Respiratory: Denies: cough, dyspnea, wheezes, hemoptysis, stridor Gastrointestinal: Reports: abdominal pain Genitourinary: Reports: urgency, dysuria, frequency, other (malodorous urine) Abdominal Pain PMH - Past Medical History Medical history: Reports: atrial fibrillation, CVA, hyperlipidemia, hypertension Female Surgical History: Reports: cholecystectomy Psychiatric history: Reports: depression - Social History Smoking status: Former smoker Alcohol use: Reports: none Drug use: Reports: none Physical Exam - General Limitations: no limitations General appearance: alert, in no apparent distress - Head Head exam: atraumatic, normocephalic, normal inspection - Eye Eye exam: Present: normal appearance, PERRL, EOMI - Chest Chest inspection: Present: normal inspection, symmetric chest wall rise - Respiratory Respiratory exam: Present: normal lung sounds bilaterally - Cardiovascular Cardiovascular exam: Present: regular rate, normal rhythm, normal heart sounds - Abdominal Exam Abdominal exam: Present: soft, tenderness, tenderness at [place]Bur[place]'s Point. Absent: guarding, rebound, rigidity Abdominal tenderness: Present: RLQ. Absent: epigastrium, suprapubic - Extremities Exam Extremities exam: Present: normal inspection, full ROM. Absent: tenderness, pedal edema - Psychiatric Psychiatric exam: Present: normal affect, normal mood - Skin Skin exam: Present: warm, dry, intact, normal color Course Course Narrative: Patient seen and evaluated at the bedside. History is suspicious for acute UTI; however, also concern for acute appendicitis as patient has significant tenderness in the RLQ. We will obtain basic laboratory studies, as well as hepatic panel, urinalysis, and CT of the abdomen/pelvis. Disposition pending. - Reevaluation(s) Reevaluation #1: CT of the abdomen demonstrated perforated sigmoid diverticulitis. Laboratory studies demonstrated elevation in WBC count. Patient is known to [facility], who was contacted with regards to this case, and consult has been placed. Awaiting surgery evaluation; one dose of zosyn ordered at this time. Anticipate hospital admission for surgical management of this problem. Time: 14:15 Reevaluation #2: Patient seen by surgery while in the ED. Per their recommendation, patient will be admitted to the medicine service. Case was discussed with Dr. Ramirez, who accepted the patient for admission. Vital Signs Temperature 98.7 F 02/10/19 11:23 Pulse Rate 80 02/10/19 11:23 Respiratory Rate 18 02/10/19 11:23 Blood Pressure 114/79 02/10/19 11:23 O2 Sat by Pulse Oximetry 96 02/10/19 11:23 Temperature 98.7 F 02/10/19 11:23 Pulse Rate 80 02/10/19 11:23 Respiratory Rate 18 02/10/19 11:23 Blood Pressure 114/79 02/10/19 11:23 O2 Sat by Pulse Oximetry 96 02/10/19 11:23 Oxygen Delivery Oxygen Delivery Room Air Abdominal Pain - Lab Data Result diagrams: 02/10/19 11:37 02/10/19 11:37 Lab Results 02/10/19 02/10/19 02/10/19 Range/Units 11:37 11:37 11:37 WBC 11.2 H (4.3-11.1) K/mcL RBC 4.70 (3.82-4.97) M/mcL Hgb 14.4 (11.5-15.4) g/dL Hct 42.0 (35.3-44.9) % MCV 89.4 (83.0-100.0) fL MCH 30.6 (28.0-33.3) pg MCHC 34.3 (31.6-35.5) g/dL RDW 11.9 (11.5-14.5) % Plt Count 191 (140-400) K/mcL MPV 8.5 L (9.4-12.4) fL Immature Gran % 0.5 (0-4) % Seg Neutrophils % 83.2 % Lymphocytes % 7.0 % Monocytes % 7.7 % Eosinophils % 1.2 % Basophils % 0.4 % Neutrophils # 9.3 H (1.6-8.9) K/mcL Lymphocytes # 0.8 (0.6-4.6) K/mcL Monocytes # 0.9 (0.0-1.3) K/mcL Eosinophils # 0.1 (0.0-0.6) K/mcL Basophils # 0.0 (0.0-0.2) K/mcL PT 18.7 H (9.4-12.1) Seconds INR 1.7 Sodium 134 L (136-145) mEq/L Potassium 3.5 (3.5-5.1) mEq/L Chloride 97 L (98-107) mEq/L Carbon Dioxide 28 (23-29) mEq/L BUN 6 L (8-23) mg/dL Creatinine 0.59 L (0.60-1.20) mg/dL Est GFR ( Amer) > 60 (> 60) Est GFR (Non-Af Amer) > 60 (> 60) BUN/Creatinine Ratio 10 (6-26) Glucose 118 H (70-105) mg/dL Calculated Osmolality 277 L (280-300) Calcium 9.6 (8.6-10.3) mg/dL Total Bilirubin 1.4 H (0.3-1.0) mg/dL Direct Bilirubin 0.3 H (0.0-0.2) mg/dL Indirect Bilirubin 1.1 (0.0-1.2) mg/dL AST 14 (13-39) Units/L ALT 12 (7-52) Units/L Alkaline Phosphatase 52 (34-104) Units/L Serum Total Protein 6.4 (6.4-8.9) g/dL Albumin 3.9 (3.5-5.7) g/dL Globulin 2.5 (2.4-3.5) g/dL Albumin/Globulin Ratio 1.6 (1.1-2.2) Amylase 27 L (29-103) Units/L Lipase 21 (11-82) Units/L Urine Color (Yellow) Urine Clarity (Clear) Urine pH (5.0-8.0) pH Units Ur Specific [place] (1.010-1.025) Urine Protein (Neg-Trace) mg/dL Urine Glucose (UA) (Normal) mg/dL Urine Ketones (Negative) mg/dL Urine Blood (Negative) Urine Nitrite (Negative) Urine Bilirubin (Negative) Urine Urobilinogen (Normal) mg/dL Ur Leukocyte Esterase (Negative) Urine Microscopic RBC (0-3) per hpf Urine Microscopic WBC (0-3) per hpf Ur Squamous Epith Cells (None-Few) per lpf Urine Bacteria (None-Few) per hpf Hyaline Casts (None-Few) per lpf Ur Culture Indicated? (NO) 02/10/19 Range/Units 14:08 WBC (4.3-11.1) K/mcL RBC (3.82-4.97) M/mcL Hgb (11.5-15.4) g/dL Hct (35.3-44.9) % MCV (83.0-100.0) fL MCH (28.0-33.3) pg MCHC (31.6-35.5) g/dL RDW (11.5-14.5) % Plt Count (140-400) K/mcL MPV (9.4-12.4) fL Immature Gran % (0-4) % Seg Neutrophils % % Lymphocytes % % Monocytes % % Eosinophils % % Basophils % % Neutrophils # (1.6-8.9) K/mcL Lymphocytes # (0.6-4.6) K/mcL Monocytes # (0.0-1.3) K/mcL Eosinophils # (0.0-0.6) K/mcL Basophils # (0.0-0.2) K/mcL PT (9.4-12.1) Seconds INR Sodium (136-145) mEq/L Potassium (3.5-5.1) mEq/L Chloride (98-107) mEq/L Carbon Dioxide (23-29) mEq/L BUN (8-23) mg/dL Creatinine (0.60-1.20) mg/dL Est GFR ( Amer) (> 60) Est GFR (Non-Af Amer) (> 60) BUN/Creatinine Ratio (6-26) Glucose (70-105) mg/dL Calculated Osmolality (280-300) Calcium (8.6-10.3) mg/dL Total Bilirubin (0.3-1.0) mg/dL Direct Bilirubin (0.0-0.2) mg/dL Indirect Bilirubin (0.0-1.2) mg/dL AST (13-39) Units/L ALT (7-52) Units/L Alkaline Phosphatase (34-104) Units/L Serum Total Protein (6.4-8.9) g/dL Albumin (3.5-5.7) g/dL Globulin (2.4-3.5) g/dL Albumin/Globulin Ratio (1.1-2.2) Amylase (29-103) Units/L Lipase (11-82) Units/L Urine Color Yellow (Yellow) Urine Clarity Clear (Clear) Urine pH 7.0 (5.0-8.0) pH Units Ur Specific [place] 1.027 H (1.010-1.025) Urine Protein Negative (Neg-Trace) mg/dL Urine Glucose (UA) Normal (Normal) mg/dL Urine Ketones Negative (Negative) mg/dL Urine Blood Trace H (Negative) Urine Nitrite Negative (Negative) Urine Bilirubin Negative (Negative) Urine Urobilinogen Normal (Normal) mg/dL Ur Leukocyte Esterase Small H (Negative) Urine Microscopic RBC 0-3 (0-3) per hpf Urine Microscopic WBC 0-3 (0-3) per hpf Ur Squamous Epith Cells Many H (None-Few) per lpf Urine Bacteria None Seen (None-Few) per hpf Hyaline Casts None Seen (None-Few) per lpf Ur Culture Indicated? NO. A (NO)
[2019-02-10 11:49] LABS: Basophils % 0.4 %; Eosinophils # 0.1 K/mcL (0.0-0.6); Eosinophils % 1.2 %; Hemoglobin 14.4 g/dL (11.5-15.4); Immature Granulocytes % 0.5 % (0-4); Lymphocytes # 0.8 K/mcL (0.6-4.6); Mean Corpuscular HGB Conc 34.3 g/dL (31.6-35.5); Mean Corpuscular Hemoglobin 30.6 pg (28.0-33.3); Mean Corpuscular Volume 89.4 fL (83.0-100.0); Mean Platelet Volume 8.5 fL (9.4-12.4); Monocytes # 0.9 K/mcL (0.0-1.3); Monocytes % 7.7 %; Neutrophils # 9.3 K/mcL (1.6-8.9); Platelet Count 191 K/mcL (140-400); Red Cell Distribution Width 11.9 % (11.5-14.5); Segmented Neutrophils % 83.2 %
[2019-02-10] MEDS ORDERED: Isovue-370 500 ML BOTTLE IVP ONE (11:49)
[2019-02-10 12:08] LABS: Alanine Aminotransferase 12 Units/L (7-52); Albumin 3.9 g/dL (3.5-5.7); Albumin/Globulin Ratio 1.6 (1.1-2.2); Alkaline Phosphatase 52 Units/L (34-104); Amylase 27 Units/L (29-103); Aspartate Amino Transferase 14 Units/L (13-39); BUN/Creatinine Ratio 10 (6-26); Bilirubin,Direct 0.3 mg/dL (0.0-0.2); Bilirubin,Indirect 1.1 mg/dL (0.0-1.2); Bilirubin,Total 1.4 mg/dL (0.3-1.0); Blood Urea Nitrogen 6 mg/dL (8-23); Calcium 9.6 mg/dL (8.6-10.3); Carbon Dioxide 28 mEq/L (23-29); Chloride 97 mEq/L (98-107); Globulin 2.5 g/dL (2.4-3.5); Glucose 118 mg/dL (70-105); Lipase 21 Units/L (11-82); Osmolality,Calculated 277 (280-300); Potassium 3.5 mEq/L (3.5-5.1); Sodium 134 mEq/L (136-145); Total Protein 6.4 g/dL (6.4-8.9); eGFR For Non-African Americans > 60 (> 60)
[2019-02-10] MEDS ORDERED: *HR* FentaNYL (PF) 100 MCG/2 ML VIAL IVP ONE (13:56)
[2019-02-10] MEDS ORDERED: Piperacillin/Tazobactam 3.375 GM in 0.9 % Sodium Chloride Mini Bag 100 ML IVPB ONE (13:56)
[2019-02-10 14:01] LABS: INR 1.7; Prothrombin Time 18.7 Seconds (9.4-12.1)
--- NOTE | 2019-02-10 14:14 | Emergency Department Note ---
Disposition Clinical Impression: Diverticulitis, Perforation bowel Disposition: Admitted As Inpatient Referrals: Kumar Ramos MD [Primary Care Provider] - Forms: ED Satisfaction Letter, Work/School Release Time of Disposition: 15:01 General Adult HPI - General Chief complaint: ED Abdominal Pain Stated complaint: Abdominal Pain Time Seen by Provider: 02/10/19 11:32 Source: patient, family, EMS Mode of arrival: EMS Limitations: no limitations - History of Present Illness Pain Scale: 3 - Related Data Home Medications Medication Instructions Recorded Confirmed Albuterol Sulfate [Albuterol 2 puff IH Q4H PRN 07/27/16 01/30/18 Inhaler] Apixaban [Eliquis] 5 mg PO BID 07/27/16 01/30/18 Atorvastatin Calcium [Lipitor] 80 mg PO HS 07/27/16 01/30/18 BuPROPion XL (24 HR) [Wellbutrin 150 mg PO DAILY 07/27/16 01/30/18 Xl] Budesonide/Formoterol 80/4.5 2 puff IH BID 07/27/16 01/30/18 [Symbicort 80/4.5] Diltiazem HCl [Cardizem LA] 120 mg PO DAILY 07/27/16 01/30/18 Escitalopram [Lexapro] 20 mg PO DAILY 07/27/16 01/30/18 Pantoprazole Sodium [Protonix] 40 mg PO DAILY 07/27/16 01/30/18 Betamethasone Dipropionate 1 appl TP DAILY 01/30/18 01/30/18 Cetirizine HCl [Zyrtec] 10 mg PO DAILY PRN 01/30/18 01/30/18 Famotidine [Heartburn Prevention] 20 mg PO DAILY 01/30/18 01/30/18 Gabapentin [Neurontin] 100 mg PO HS PRN 01/30/18 01/30/18 Losartan/Hydrochlorothiazide 1 each PO DAILY 01/30/18 01/30/18 [Hyzaar 100-25 Tablet] Montelukast [Singulair] 10 mg PO HS 01/30/18 01/30/18 Triamcinolone Acet 0.1% CRM 1 appl TP BID 01/30/18 01/30/18 [Kenalog] hydrOXYzine pamoate [HydrOXYzine 25 mg PO HS 01/30/18 01/30/18 Pamoate] Previous Rx's Medication Instructions Recorded Apixaban [Eliquis] 5 mg PO BID tablet 02/03/18 Azithromycin [Zithromax] 250 mg PO DAILY #2 tablet 02/03/18 Docusate [Colace] 100 mg PO BID #60 capsule 02/03/18 Ferrous Sulfate 325 mg PO BIDWM #60 tablet 02/03/18 GuaiFENesin ER [Mucinex] 600 mg PO BID PRN #30 tbbp.12hr 02/03/18 Allergies Allergy/AdvReac Type Severity Reaction Status Date / Time No Known Allergies Allergy Verified 01/30/18 11:00 Constitutional: Denies: fever, chills, weakness, weight change Eyes: Denies: eye pain, eye discharge, vision change Cardiovascular: Denies: chest pain, palpitations, dyspnea on exertion, edema, syncope Respiratory: Denies: cough, dyspnea, wheezes, hemoptysis, stridor Gastrointestinal: Reports: abdominal pain Genitourinary: Reports: urgency, dysuria, frequency, other (malodorous urine) Past Medical History - Past Medical History Medical history: Reports: atrial fibrillation, CVA, hyperlipidemia, hypertension Surgical history: Reports: no surgical history Psychiatric history: Reports: depression - Social History Smoking Status: Former smoker Smokeless Tobacco Status: No Alcohol use: Reports: none Drug use: Reports: none Physical Exam - General Limitations: no limitations General appearance: alert, in no apparent distress Course Vital Signs Temperature 98.7 F 02/10/19 11:23 Pulse Rate 80 02/10/19 11:23 Respiratory Rate 18 02/10/19 11:23 Blood Pressure 114/79 02/10/19 11:23 O2 Sat by Pulse Oximetry 96 02/10/19 11:23 Temperature 98.7 F 02/10/19 11:23 Pulse Rate 80 02/10/19 11:23 Respiratory Rate 18 02/10/19 11:23 Blood Pressure 114/79 02/10/19 11:23 O2 Sat by Pulse Oximetry 96 02/10/19 11:23 Oxygen Delivery Oxygen Delivery Room Air Medical Decision Making - Lab Data Result diagrams: 02/10/19 11:37 02/10/19 11:37 Lab Results 02/10/19 02/10/19 02/10/19 Range/Units 11:37 11:37 11:37 WBC 11.2 H (4.3-11.1) K/mcL RBC 4.70 (3.82-4.97) M/mcL Hgb 14.4 (11.5-15.4) g/dL Hct 42.0 (35.3-44.9) % MCV 89.4 (83.0-100.0) fL MCH 30.6 (28.0-33.3) pg MCHC 34.3 (31.6-35.5) g/dL RDW 11.9 (11.5-14.5) % Plt Count 191 (140-400) K/mcL MPV 8.5 L (9.4-12.4) fL Immature Gran % 0.5 (0-4) % Seg Neutrophils % 83.2 % Lymphocytes % 7.0 % Monocytes % 7.7 % Eosinophils % 1.2 % Basophils % 0.4 % Neutrophils # 9.3 H (1.6-8.9) K/mcL Lymphocytes # 0.8 (0.6-4.6) K/mcL Monocytes # 0.9 (0.0-1.3) K/mcL Eosinophils # 0.1 (0.0-0.6) K/mcL Basophils # 0.0 (0.0-0.2) K/mcL PT 18.7 H (9.4-12.1) Seconds INR 1.7 Sodium 134 L (136-145) mEq/L Potassium 3.5 (3.5-5.1) mEq/L Chloride 97 L (98-107) mEq/L Carbon Dioxide 28 (23-29) mEq/L BUN 6 L (8-23) mg/dL Creatinine 0.59 L (0.60-1.20) mg/dL Est GFR ( Amer) > 60 (> 60) Est GFR (Non-Af Amer) > 60 (> 60) BUN/Creatinine Ratio 10 (6-26) Glucose 118 H (70-105) mg/dL Calculated Osmolality 277 L (280-300) Calcium 9.6 (8.6-10.3) mg/dL Total Bilirubin 1.4 H (0.3-1.0) mg/dL Direct Bilirubin 0.3 H (0.0-0.2) mg/dL Indirect Bilirubin 1.1 (0.0-1.2) mg/dL AST 14 (13-39) Units/L ALT 12 (7-52) Units/L Alkaline Phosphatase 52 (34-104) Units/L Serum Total Protein 6.4 (6.4-8.9) g/dL Albumin 3.9 (3.5-5.7) g/dL Globulin 2.5 (2.4-3.5) g/dL Albumin/Globulin Ratio 1.6 (1.1-2.2) Amylase 27 L (29-103) Units/L Lipase 21 (11-82) Units/L Urine Color (Yellow) Urine Clarity (Clear) Urine pH (5.0-8.0) pH Units Ur Specific [place] (1.010-1.025) Urine Protein (Neg-Trace) mg/dL Urine Glucose (UA) (Normal) mg/dL Urine Ketones (Negative) mg/dL Urine Blood (Negative) Urine Nitrite (Negative) Urine Bilirubin (Negative) Urine Urobilinogen (Normal) mg/dL Ur Leukocyte Esterase (Negative) Urine Microscopic RBC (0-3) per hpf Urine Microscopic WBC (0-3) per hpf Ur Squamous Epith Cells (None-Few) per lpf Urine Bacteria (None-Few) per hpf Hyaline Casts (None-Few) per lpf Ur Culture Indicated? (NO) 02/10/19 Range/Units 14:08 WBC (4.3-11.1) K/mcL RBC (3.82-4.97) M/mcL Hgb (11.5-15.4) g/dL Hct (35.3-44.9) % MCV (83.0-100.0) fL MCH (28.0-33.3) pg MCHC (31.6-35.5) g/dL RDW (11.5-14.5) % Plt Count (140-400) K/mcL MPV (9.4-12.4) fL Immature Gran % (0-4) % Seg Neutrophils % % Lymphocytes % % Monocytes % % Eosinophils % % Basophils % % Neutrophils # (1.6-8.9) K/mcL Lymphocytes # (0.6-4.6) K/mcL Monocytes # (0.0-1.3) K/mcL Eosinophils # (0.0-0.6) K/mcL Basophils # (0.0-0.2) K/mcL PT (9.4-12.1) Seconds INR Sodium (136-145) mEq/L Potassium (3.5-5.1) mEq/L Chloride (98-107) mEq/L Carbon Dioxide (23-29) mEq/L BUN (8-23) mg/dL Creatinine (0.60-1.20) mg/dL Est GFR ( Amer) (> 60) Est GFR (Non-Af Amer) (> 60) BUN/Creatinine Ratio (6-26) Glucose (70-105) mg/dL Calculated Osmolality (280-300) Calcium (8.6-10.3) mg/dL Total Bilirubin (0.3-1.0) mg/dL Direct Bilirubin (0.0-0.2) mg/dL Indirect Bilirubin (0.0-1.2) mg/dL AST (13-39) Units/L ALT (7-52) Units/L Alkaline Phosphatase (34-104) Units/L Serum Total Protein (6.4-8.9) g/dL Albumin (3.5-5.7) g/dL Globulin (2.4-3.5) g/dL Albumin/Globulin Ratio (1.1-2.2) Amylase (29-103) Units/L Lipase (11-82) Units/L Urine Color Yellow (Yellow) Urine Clarity Clear (Clear) Urine pH 7.0 (5.0-8.0) pH Units Ur Specific [place] 1.027 H (1.010-1.025) Urine Protein Negative (Neg-Trace) mg/dL Urine Glucose (UA) Normal (Normal) mg/dL Urine Ketones Negative (Negative) mg/dL Urine Blood Trace H (Negative) Urine Nitrite Negative (Negative) Urine Bilirubin Negative (Negative) Urine Urobilinogen Normal (Normal) mg/dL Ur Leukocyte Esterase Small H (Negative) Urine Microscopic RBC 0-3 (0-3) per hpf Urine Microscopic WBC 0-3 (0-3) per hpf Ur Squamous Epith Cells Many H (None-Few) per lpf Urine Bacteria None Seen (None-Few) per hpf Hyaline Casts None Seen (None-Few) per lpf Ur Culture Indicated? NO. A (NO) Attestation Statement - Attestation Attestation: I examined this patient and my medical decision-making was reviewed with the Resident Physician. I agree with the documented findings, disposition and treatment plan as described except to the extent set forth below. Patient presents to the ED with a chief complaint of abdominal pain. Right lower abdomen. Nausea but no vomiting. On examination she has lower abdominal tenderness. Plan. The patient's labs show slight elevation white blood cell count. Should the CT scan that shows a perforated diverticulitis. No abscess. Discussed with surgery. Patient has been evaluated by general surgery who will see in consultation. IV at about a quarter. Admitted to medicine. Abdomen/Pelvis CT 02/10/19 11:49 IMPRESSION: Combination of findings is favored to represent perforated sigmoid diverticulitis with a small amount of pneumoperitoneum and no evidence of abscess. However, the appendix is located within the area of right-sided pelvic inflammation, and perforated appendicitis is not excluded D/ / Chandu Schaefer MD / Chandu Schaefer MD Interpreting Provider: Chandu Schaefer MD
[2019-02-10 14:25] LABS: Bilirubin,Urine Negative (Negative); Blood,Urine Trace (Negative); Clarity,Urine Clear (Clear); Color,Urine Yellow (Yellow); Glucose,Urine (UA) Normal (Normal); Ketones,Urine Negative (Negative); Leukocyte Esterase,Urine Small (Negative); Nitrite,Urine Negative (Negative); Protein,Urine Negative (Neg-Trace); Specific Gravity,Urine 1.027 (1.010-1.025); Urobilinogen,Urine Normal (Normal)
[2019-02-10 14:26] LABS: Bacteria,Urine None Seen per hpf (None-Few); Hyaline Casts,Urine None Seen per lpf (None-Few); RBC,Urine 0-3 per hpf (0-3); Squamous Epithelial Cell,Urine Many per lpf (None-Few); WBC,Urine 0-3 per hpf (0-3)
--- NOTE | 2019-02-10 16:11 | General Surgery Consult Note ---
Date of Encounter: 02/10/19 Time of Encounter: 16:08 Assessment and Plan (1) Abdominal pain Current Visit: Yes Status: Acute 78F with multiple comorbidities presents with abdominal pain with concern for possible perforated appendix vs perforated diverticulitis; non septic, non peritonela NPO IVF IV abx pain control serial exam repeat labs in AM surgery will continue to follow Qualifiers: Abdominal location: unspecified location Qualified Code(s): R10.9 - Unspecified abdominal pain History of Present Illness Consult date: 02/10/19 Reason for consult: abdominal pain History of present illness: 78F PMH significant for atrial fibrillation, CVA, hyperlipidemia, hypertension who presents with two days of worsening abdominal pain and early satiety. The pain is located on the right abdomen and midabdomen. The pain is non radiating with no identifiable alleviating or exacerbating factors. No reports of fevers, chills, nausea or vomiting. Her last bowel movement and flatus was within the last 24hrs. Due to the severity of her pain, she presented for evaluation. A CT scan was obtained, which was evaluated by me, demonstrated significant inflammation involving the sigmoid and right colon and the developing of what could be an abscess. Past Med Surg Social Fam HX - Past Medical History Medical history: atrial fibrillation, CVA, hyperlipidemia, hypertension Additional medical history: brain bleed, Psychiatric history: depression - Past Surgical History Surgical History: no surgical history Additional surgical history: left wrist - Social History Smoking Status: Former smoker Smokeless Tobacco Status: No Alcohol use: none Drug use: none - Family History Father Family Member Ethnicity: Non- Living Status: Hx Family Neuromuscular Disorders: Yes Medications and Allergies Albuterol Sulfate [Albuterol Inhaler] 2 puff IH Q4H PRN 07/27/16 [History] Atorvastatin Calcium [Lipitor] 80 mg PO HS 07/27/16 [History] BuPROPion XL (24 HR) [Wellbutrin Xl] 150 mg PO DAILY 07/27/16 [History] Budesonide/Formoterol 80/4.5 [Symbicort 80/4.5] 2 puff IH BID 07/27/16 [History] Escitalopram [Lexapro] 20 mg PO DAILY 07/27/16 [History] Pantoprazole Sodium [Protonix] 40 mg PO DAILY 07/27/16 [History] Betamethasone Dipropionate 1 appl TP DAILY 01/30/18 [History] Cetirizine HCl [Zyrtec] 10 mg PO DAILY PRN 01/30/18 [History] Famotidine [Heartburn Prevention] 20 mg PO DAILY 01/30/18 [History] Gabapentin [Neurontin] 100 mg PO HS PRN 01/30/18 [History] Losartan/Hydrochlorothiazide [Hyzaar 100-25 Tablet] 1 each PO DAILY 01/30/18 [History] Montelukast [Singulair] 10 mg PO HS 01/30/18 [History] Triamcinolone Acet 0.1% CRM [Kenalog] 1 appl TP BID 01/30/18 [History] hydrOXYzine pamoate [HydrOXYzine Pamoate] 25 mg PO HS 01/30/18 [History] Apixaban [Eliquis] 5 mg PO BID tablet 02/03/18 [Rx] Azithromycin [Zithromax] 250 mg PO DAILY #2 tablet 02/03/18 [Rx] Docusate [Colace] 100 mg PO BID #60 capsule 02/03/18 [Rx] Ferrous Sulfate 325 mg PO BIDWM #60 tablet 02/03/18 [Rx] GuaiFENesin ER [Mucinex] 600 mg PO BID PRN #30 tbbp.12hr 02/03/18 [Rx] Allergy/AdvReac Type Severity Reaction Status Date / Time No Known Allergies Allergy Verified 01/30/18 11:00 Review of Systems All systems PM: 12 point ROS negative besides HPI findings General Surgery Exam Initial Vital Signs Temp Pulse Resp BP Pulse Ox 98.7 F 80 18 114/79 96 02/10/19 11:23 02/10/19 11:23 02/10/19 11:23 02/10/19 11:23 02/10/19 11:23 - General physical appearance no distress - Eyes normal ocular movement - ENT normocephalic - Neck trachea midline, no lymphadectomy - Respiratory normal expansion, normal respiratory effort - Cardiovascular Cardiovascular exam: Present: RRR - Abdomen Abdomen general surgery: Present: soft, tender Abdominal Tenderness: Present: RLQ, suprapubic (more midabdomen) - Integumentary Integumentary general surgery: Present: warm and dry - Neurologic Present: CN 2-12 grossly intact - Musculoskeletal Present: normal posture - Psychiatric Psychiatric general surgery: Present: A&Ox3 Exam Initial Vital Signs Temp Pulse Resp BP Pulse Ox 98.7 F 80 18 114/79 96 02/10/19 11:23 02/10/19 11:23 02/10/19 11:23 02/10/19 11:23 02/10/19 11:23 Results - Labs 02/10/19 11:37 02/10/19 11:37 Abnormal lab results WBC 11.2 K/mcL (4.3-11.1) H 02/10/19 11:37 MPV 8.5 fL (9.4-12.4) L 02/10/19 11:37 Neutrophils # 9.3 K/mcL (1.6-8.9) H 02/10/19 11:37 PT 18.7 Seconds (9.4-12.1) H 02/10/19 11:37 Sodium 134 mEq/L (136-145) L 02/10/19 11:37 Chloride 97 mEq/L (98-107) L 02/10/19 11:37 BUN 6 mg/dL (8-23) L 02/10/19 11:37 Creatinine 0.59 mg/dL (0.60-1.20) L 02/10/19 11:37 Glucose 118 mg/dL (70-105) H 02/10/19 11:37 Calculated Osmolality 277 (280-300) L 02/10/19 11:37 Total Bilirubin 1.4 mg/dL (0.3-1.0) H 02/10/19 11:37 Direct Bilirubin 0.3 mg/dL (0.0-0.2) H 02/10/19 11:37 Amylase 27 Units/L (29-103) L 02/10/19 11:37 Ur Specific [place] 1.027 (1.010-1.025) H 02/10/19 14:08 Urine Blood Trace (Negative) H 02/10/19 14:08 Ur Leukocyte Esterase Small (Negative) H 02/10/19 14:08 Ur Squamous Epith Cells Many per lpf (None-Few) H 02/10/19 14:08 Ur Culture Indicated? NO. (NO) A 02/10/19 14:08 Diabetes panel 02/10/19 Range/Units 11:37 Sodium 134 L (136-145) mEq/L Potassium 3.5 (3.5-5.1) mEq/L Chloride 97 L (98-107) mEq/L Carbon Dioxide 28 (23-29) mEq/L BUN 6 L (8-23) mg/dL Creatinine 0.59 L (0.60-1.20) mg/dL Glucose 118 H (70-105) mg/dL Calcium 9.6 (8.6-10.3) mg/dL AST 14 (13-39) Units/L ALT 12 (7-52) Units/L Alkaline Phosphatase 52 (34-104) Units/L Albumin 3.9 (3.5-5.7) g/dL Calcium panel 02/10/19 Range/Units 11:37 Calcium 9.6 (8.6-10.3) mg/dL Albumin 3.9 (3.5-5.7) g/dL Pituitary panel 02/10/19 Range/Units 11:37 Sodium 134 L (136-145) mEq/L Potassium 3.5 (3.5-5.1) mEq/L Chloride 97 L (98-107) mEq/L Carbon Dioxide 28 (23-29) mEq/L BUN 6 L (8-23) mg/dL Creatinine 0.59 L (0.60-1.20) mg/dL Glucose 118 H (70-105) mg/dL Calcium 9.6 (8.6-10.3) mg/dL Adrenal panel 02/10/19 Range/Units 11:37 Sodium 134 L (136-145) mEq/L Potassium 3.5 (3.5-5.1) mEq/L Chloride 97 L (98-107) mEq/L Carbon Dioxide 28 (23-29) mEq/L BUN 6 L (8-23) mg/dL Creatinine 0.59 L (0.60-1.20) mg/dL Glucose 118 H (70-105) mg/dL Calcium 9.6 (8.6-10.3) mg/dL Total Bilirubin 1.4 H (0.3-1.0) mg/dL AST 14 (13-39) Units/L ALT 12 (7-52) Units/L Alkaline Phosphatase 52 (34-104) Units/L Albumin 3.9 (3.5-5.7) g/dL All other labs normal. - Imaging CT scan - abdomen: report reviewed, image reviewed CT scan - pelvis: report reviewed, image reviewed Consult Discharge Plan - Plan
[2019-02-10] MEDS ORDERED: *HR* Heparin 5,000 UNIT/ML VIAL IVP ONE (16:36)
[2019-02-10] MEDS ORDERED: *HR* Heparin 5,000 UNIT/ML VIAL IVP PRN ×2 (16:36)
--- NOTE | 2019-02-10 16:36 | Internal Med History&Physical ---
<Mai Samson - Last Filed: 02/10/19 17:20> Date of Encounter: 02/10/19 Internal Medicine - H&P: HPI History of present illness: Ms. Green is a 78 year old female Internal Medicine - H&P: Meds Albuterol Sulfate [Albuterol Inhaler] 2 puff IH Q4H PRN 07/27/16 [History] Atorvastatin Calcium [Lipitor] 80 mg PO HS 07/27/16 [History] BuPROPion XL (24 HR) [Wellbutrin Xl] 150 mg PO DAILY 07/27/16 [History] Budesonide/Formoterol 80/4.5 [Symbicort 80/4.5] 2 puff IH BID 07/27/16 [History] Escitalopram [Lexapro] 20 mg PO DAILY 07/27/16 [History] Pantoprazole Sodium [Protonix] 40 mg PO DAILY 07/27/16 [History] Betamethasone Dipropionate 1 appl TP DAILY 01/30/18 [History] Cetirizine HCl [Zyrtec] 10 mg PO DAILY PRN 01/30/18 [History] Famotidine [Heartburn Prevention] 20 mg PO DAILY 01/30/18 [History] Gabapentin [Neurontin] 100 mg PO HS PRN 01/30/18 [History] Losartan/Hydrochlorothiazide [Hyzaar 100-25 Tablet] 1 each PO DAILY 01/30/18 [History] Montelukast [Singulair] 10 mg PO HS 01/30/18 [History] Triamcinolone Acet 0.1% CRM [Kenalog] 1 appl TP BID 01/30/18 [History] hydrOXYzine pamoate [HydrOXYzine Pamoate] 25 mg PO HS 01/30/18 [History] Apixaban [Eliquis] 5 mg PO BID tablet 02/03/18 [Rx] Azithromycin [Zithromax] 250 mg PO DAILY #2 tablet 02/03/18 [Rx] Docusate [Colace] 100 mg PO BID #60 capsule 02/03/18 [Rx] Ferrous Sulfate 325 mg PO BIDWM #60 tablet 02/03/18 [Rx] GuaiFENesin ER [Mucinex] 600 mg PO BID PRN #30 tbbp.12hr 02/03/18 [Rx] Allergy/AdvReac Type Severity Reaction Status Date / Time No Known Allergies Allergy Verified 01/30/18 11:00 All Systems PM: A 10-system review of systems was performed and is negative for pertinent findings except as documented above in the HPI. - Constitutional Vitals: Temp Pulse Resp BP Pulse Ox 98.7 F 80 20 146/93 96 02/10/19 11:23 02/10/19 11:23 02/10/19 16:34 02/10/19 16:34 02/10/19 11:23 Internal Med - H&P Results - Labs CBC & Chem 7: 02/10/19 11:37 02/10/19 11:37 Labs: Short CBC 02/10/19 Range/Units 11:37 WBC 11.2 H (4.3-11.1) K/mcL Hgb 14.4 (11.5-15.4) g/dL Hct 42.0 (35.3-44.9) % Plt Count 191 (140-400) K/mcL Neutrophils # 9.3 H (1.6-8.9) K/mcL BMP 02/10/19 11:37 Sodium 134 L Potassium 3.5 Chloride 97 L Carbon Dioxide 28 BUN 6 L Creatinine 0.59 L Glucose 118 H Calcium 9.6 Liver Function 02/10/19 Range/Units 11:37 Total Bilirubin 1.4 H (0.3-1.0) mg/dL Direct Bilirubin 0.3 H (0.0-0.2) mg/dL AST 14 (13-39) Units/L ALT 12 (7-52) Units/L Alkaline Phosphatase 52 (34-104) Units/L Albumin 3.9 (3.5-5.7) g/dL Urine 02/10/19 Range/Units 14:08 Urine Color Yellow (Yellow) Urine Clarity Clear (Clear) Urine pH 7.0 (5.0-8.0) pH Units Ur Specific [place] 1.027 H (1.010-1.025) Urine Protein Negative (Neg-Trace) mg/dL Urine Glucose (UA) Normal (Normal) mg/dL - Impressions ITS Impressions Abdomen/Pelvis CT 02/10/19 11:49 IMPRESSION: Combination of findings is favored to represent perforated sigmoid diverticulitis with a small amount of pneumoperitoneum and no evidence of abscess. However, the appendix is located within the area of right-sided pelvic inflammation, and perforated appendicitis is not excluded D/ / Chandu Schaefer MD / Chandu Schaefer MD Interpreting Provider: Chandu Schaefer MD - Time Spent With Patient Total time spent is greater than 50% in coordination of care (as documented) at patient's floor/unit and/or counseling patient: - Attending Attestation I examined this patient and my medical decision-making was reviewed with the Resident Physician Dr Pizano. I agree with the documented findings, disposition and treatment plan as described except to the extent set forth below. Ms Green is admitted for perforated diverticulitis vs appendix awake, no family present. pain tolerable, no nausea currently, dneied fevers or chills. no palpitations, cp, pressure, sob or presyncope. She only makes herself breakfast and takes a shower twice weekly. <4 METS. VS normal on tele monitor at bedside gen- alert, awake,appears stated age eyes- pupils equal round cv- reg rate and irreg / irreg rhythm, normal s1,s2, no murmurs appreciated, no jvd, no le edema lungs- ctabl, no wheezing, rhonchi or crackles, normal resp effort on ra abd- soft, tender RLQ, non distended, + bs, no guarding or rigidity neuro- AAOx3 Microperforation of the sigmoid with diverticulitis versus microperforation of appendix -surgery following, serial exams, IV zosyn, prn pain and anti emetic IV, strict npo, IVFs Pre Operative risk assessment -given pt known hx CVA, <4METS and plan for possible surgery this admit, d/w surgery and will begin pre op assessment -obtain bnp, ekg reviewed and no acute ischemic changes, rate controlled afib, check echo--will then consult cards to assess if needs stress test -last echo 2017 and nuclear stress 2017 reviewed -change eliquis to hep gtt Afib, rate controlled not on cardizem at home anymore per pt as stopped by outpt provider -tele monitor lytes, hep gtt in case to OR urgently, if increased heart rate ok for cardizem IV as BP permits HTN- currently normotensive, hold oral meds and monitor BP, IV antihypertensives if needed further diagnoses and plan as noted by resident her home meds are not confirmed, no family present, she does not know home meds on review of most recent there are no medications that are essential and require IV conversion at this time. <Landon Pizano - Last Filed: 02/10/19 19:11> Date of Encounter: 02/10/19 Time of Encounter: 03:00 Internal Medicine - H&P: HPI Chief complaint: abdominal pain History of present illness: Ms. Green is a 78 year old female past medical history of CVA (2015) , abnormal cardiac stress tests with < 4METS, hypertension, A. fib(on eliquis for AC), hyperlipidemia , s/p laparoscopic cholecystectomy who presents to the ED because of abdominal pain that began last night. Patient endorses that the pain came on suddenly, started as a discomfort in the epigastric area initially, and then radiated to the lower right side of her abdomen. Patient also endorses multiple episodes of non-bloody diarrhea for the past couple days, but no nausea or vomiting. She denies any association of pain with meals or bowel movements. She denies any travels or consumption of any contaminated foods, no change in medications. Initial workup in the ED showed that patient was afebrile with a normal white blood count. Patient electrolytes were within normal limits. BNP was 101. Her liver and the pancreas enzymes are normal. UA was obtained but was very nonspecific because too many squamous epithelial cells. Radiographic workup showed perforated sigmoid diverticulitis with a small amount of pneumoperitoneum with no abscesses. There was also some concern for perforated appendicitis. Patient was given fentanyl in the ED for pain control and was started on Zosyn. She was transferred to the floor for further management. Past Med Surg Social Fam HX - Past Medical History Medical history: atrial fibrillation, CVA, hyperlipidemia, hypertension Additional medical history: brain bleed, Psychiatric history: depression - Past Surgical History Surgical History: no surgical history Additional surgical history: left wrist - Social History Smoking Status: Former smoker Smokeless Tobacco Status: No Alcohol use: none Drug use: none - Family History Father Family Member Ethnicity: Non- Living Status: Hx Family Neuromuscular Disorders: Yes All Systems PM: A 10-system review of systems was performed and is negative for pertinent findings except as documented above in the HPI. - Constitutional Constitutional: no fever(s) - Cardiovascular Cardiovascular ROS IM: no chest pain - Respiratory Respiratory: no pain on inspiration - Gastrointestinal Gastrointestinal: no melena - Musculoskeletal Musculoskeletal ROS IM: no joint swelling - Neurological Neurological ROS: no behavioral changes - Constitutional Vitals: Temp Pulse Resp BP Pulse Ox 98.7 F 80 18 114/79 96 02/10/19 11:23 02/10/19 11:23 02/10/19 11:23 02/10/19 11:23 02/10/19 11:23 Exam: Gen.: Vitals noted. No acute distress. AAOx3, resting comfortably in bed. HEENT: PERRL. EOM limited in left lateral motion in both superior and inferior motions. oropharynx clear, Normocephalic, atraumatic, MMM. Neck: Supple. No adenopathy. No thyroid nodules. Cardiac: A fib-rate controlled , no murmur, +S1/S2, No BLE edema Pulmonary: CTA bilaterally, no wheezes, rales or rhonchi, equal chest expansion, unlabored breathing Abdomen: soft, tender at the McBurneys point, BS noted, no guarding, no palpable HSM Skin: warm and dry, no visible lesions. MSK: Muscle strength 5/5 upper and lower extremity . no joint swelling noted, gait no assessed while in bed. Non tender calf or clubbing Neuro: A&Ox3, no facial droop, cranial nerve XII intact, sensory or motor function intact reflexes 2 out of 4, cerebellar function normal Psych: Appropriate mood and behavior, AOx3 Internal Med - H&P Results - Labs CBC & Chem 7: 02/10/19 17:27 02/10/19 11:37 Labs: Short CBC 02/10/19 Range/Units 11:37 WBC 11.2 H (4.3-11.1) K/mcL Hgb 14.4 (11.5-15.4) g/dL Hct 42.0 (35.3-44.9) % Plt Count 191 (140-400) K/mcL Neutrophils # 9.3 H (1.6-8.9) K/mcL BMP 02/10/19 11:37 Sodium 134 L Potassium 3.5 Chloride 97 L Carbon Dioxide 28 BUN 6 L Creatinine 0.59 L Glucose 118 H Calcium 9.6 Liver Function 02/10/19 Range/Units 11:37 Total Bilirubin 1.4 H (0.3-1.0) mg/dL Direct Bilirubin 0.3 H (0.0-0.2) mg/dL AST 14 (13-39) Units/L ALT 12 (7-52) Units/L Alkaline Phosphatase 52 (34-104) Units/L Albumin 3.9 (3.5-5.7) g/dL Urine 02/10/19 Range/Units 14:08 Urine Color Yellow (Yellow) Urine Clarity Clear (Clear) Urine pH 7.0 (5.0-8.0) pH Units Ur Specific [place] 1.027 H (1.010-1.025) Urine Protein Negative (Neg-Trace) mg/dL Urine Glucose (UA) Normal (Normal) mg/dL - Impressions ITS Impressions Abdomen/Pelvis CT 02/10/19 11:49 IMPRESSION: Combination of findings is favored to represent perforated sigmoid diverticulitis with a small amount of pneumoperitoneum and no evidence of abscess. However, the appendix is located within the area of right-sided pelvic inflammation, and perforated appendicitis is not excluded D/ / Chandu Schaefer MD / Chandu Schaefer MD Interpreting Provider: Chandu Schaefer MD - Assessment and Plan (1) Abdominal pain Current Visit: Yes Status: Acute Assessment and plan: -Patient endorses she had unprovoked abdominal pain that began yesterday evening . She also endorses multiple episodes of nonbloody diarrhea for the past few days. -Denies any history of trauma, no recent travels, no history of Crohn's disease/ulcerative colitis. -CT of abdominal pelvis showed perforated sigmoid diverticulitis with small amount of peritoneum, along with concerns for perforated acute appendicitis -Her vitals in the ED 2 admissions were pretty benign and temperature 98.7. Pulse of 80, respiration of 18, normotensive satting at room air 96%. -Is given Zosyn 3.125 gm q6h in the ED -On physical exam patient has positive McBurney's point. Plan: -Currently on Zosyn 3.125 IVP every 6 hours -On the lactate Ringer's at 75 ml/hr -Labs in a.m. - CBC, BMP, PT/INR -Gen surgery is on board -Patient has a history of CVA, < 4 METS with abnormal stress test when she had her last surgery. She also has chronic dyspnea and history of A. fib which is rate controlled -Will obtain echocardiogram in the morning and will consult cardiology if needed for a potential stress test -Changed Eliquis to heparin drip for AC -Zofran 4mg IVP PRN -NPO Qualifiers: Qualified Code(s): R10.9 - Unspecified abdominal pain (2) Afib Current Visit: No Status: Chronic Assessment and plan: -Patient is a history of atrial fibrillation with a CHADVASc of 7. - She takes Eliquis everyday for anticoagulation. She used to be on Cardizem 120 mg by mouth but she tells me that her PCP stopped it recently. -Currently holding her Eliquis and is heparin drip for anticoagulation Qualifiers: Atrial fibrillation type: unspecified Qualified Code(s): I48.91 - Unspecified atrial fibrillation (3) Hypertension Current Visit: No Status: Chronic Assessment and plan: -Patient has a history of hypertension -She has been normotensive so far -continue to monitor Qualifiers: Hypertension type: essential hypertension Qualified Code(s): I10 - Essential (primary) hypertension (4) Depression Current Visit: No Status: Chronic Assessment and plan: She has a history of depression Takes Lexapro 20 mg by mouth daily Holding her home meds because she is nothing by mouth for her Sx Qualifiers: Depression Type: major depressive disorder Major depression recurrence: single episode Active/Remission status: in full remission Qualified Code(s): F32.5 - Major depressive disorder, single episode, in full remission (5) DVT prophylaxis Current Visit: No Status: Acute Assessment and plan: On heparin gtt. - Time Spent With Patient Total time spent is greater than 50% in coordination of care (as documented) at patient's floor/unit and/or counseling patient:
[2019-02-10 18:04] LABS: Hematocrit 43.1 % (35.3-44.9); Hemoglobin 14.6 g/dL (11.5-15.4); Mean Corpuscular HGB Conc 33.9 g/dL (31.6-35.5); Mean Corpuscular Hemoglobin 30.4 pg (28.0-33.3); Mean Corpuscular Volume 89.8 fL (83.0-100.0); Mean Platelet Volume 8.7 fL (9.4-12.4); Platelet Count 194 K/mcL (140-400); Red Cell Distribution Width 11.9 % (11.5-14.5)
[2019-02-10] MEDS ORDERED: Levalbuterol Neb 0.63 MG/3 ML IH PRN (18:11)
[2019-02-10 18:13] LABS: INR 1.5; Prothrombin Time 16.8 Seconds (9.4-12.1)
[2019-02-10] MEDS ORDERED: Ondansetron 4 MG/2 ML VIAL IVP PRN (18:13)
[2019-02-10] MEDS ORDERED: Naloxone 0.4 MG/ML INJ IVP PRN (18:15)
[2019-02-10 18:20] LABS: Heparin anti-factor XA UFH 1.09 IU/mL (0.30-0.70)
[2019-02-10] MEDS: Pantoprazole 40 MG VIAL IVP SCH (19:21)
[2019-02-10] MEDS ORDERED: OXYCODONE Oral CONC 10 MG/0.5 ML ORAL.SYG SL PRN (19:23)
[2019-02-10] MEDS ORDERED: 0.9 % Sodium Chloride 1,000 ML IVC SCH (19:30)
[2019-02-10] MEDS: Ringers Solution, Lactated 1,000 ML IVC SCH (19:57)
[2019-02-10] MEDS: Budesonide/Formoterol 160/4.5 1 PUFF INH IH SCH (22:08)
[2019-02-11] MEDS: Piperacillin/Tazobactam 3.375 GM in 0.9 % Sodium Chloride Mini Bag 100 ML IVPB SCH ×3 (00:41→16:25)
[2019-02-11 01:25] LABS: Basophils % 0.3 %; Eosinophils # 0.1 K/mcL (0.0-0.6); Hematocrit 39.6 % (35.3-44.9); Hemoglobin 13.7 g/dL (11.5-15.4); Immature Granulocytes % 0.3 % (0-4); Lymphocytes # 1.3 K/mcL (0.6-4.6); Lymphocytes % 12.3 %; Mean Corpuscular HGB Conc 34.6 g/dL (31.6-35.5); Mean Corpuscular Hemoglobin 30.6 pg (28.0-33.3); Mean Corpuscular Volume 88.4 fL (83.0-100.0); Mean Platelet Volume 8.5 fL (9.4-12.4); Monocytes # 0.9 K/mcL (0.0-1.3); Monocytes % 8.9 %; Platelet Count 166 K/mcL (140-400); Red Blood Count 4.48 M/mcL (3.82-4.97); Segmented Neutrophils % 77.2 %
[2019-02-11 01:33] LABS: INR 1.5
[2019-02-11 01:44] LABS: BUN/Creatinine Ratio 12 (6-26); Blood Urea Nitrogen 7 mg/dL (8-23); Calcium 9.5 mg/dL (8.6-10.3); Carbon Dioxide 26 mEq/L (23-29); Chloride 101 mEq/L (98-107); Glucose 106 mg/dL (70-105); Osmolality,Calculated 280 (280-300); Potassium 3.2 mEq/L (3.5-5.1); Sodium 136 mEq/L (136-145); eGFR For Non-African Americans > 60 (> 60)
[2019-02-11] MEDS: Budesonide/Formoterol 160/4.5 1 PUFF INH IH SCH ×2 (07:41→20:20)
--- NOTE | 2019-02-11 07:58 | General Surgery Progress Note ---
<ZaidiJian Khadijah - Last Filed: 02/11/19 07:56> Date of Encounter: 02/11/19 Time of Encounter: 07:10 - Assessment and Plan (1) Diverticulitis Current Visit: Yes Status: Acute -Abdominal pain improving from admission -CT abd/plv 02/10/19: Sigmoidal diverticulosis with significant inflammatory stranding, appendix within area of inflammation, no evidence abscess -Wbc trending down from 11.2 on admission and 10.3 today, afebrile, hemodynamically stable -Day 2 pip/tazo -Fluid collection on CT may be developing abscess -Will continue to manage conservatively with goal avoidance of surgical intervention if continues to improve -Continue NPO except ice chips, abx, pain control, antiemetics Subjective Patient reports: no new complaints, feels better, pain is less, voiding w/o difficulty, no flatus, afebrile Objective Vital Signs - Last 8 Hours Temp Pulse Resp BP Pulse Ox 02/11/19 07:47 18 97 02/11/19 04:19 98.3 F 83 15 119/74 93 02/11/19 00:25 98.7 F 79 16 113/75 91 Intake and Output 02/10/19 02/10/19 02/11/19 15:59 23:59 07:59 Intake Total 0 / 0 240 / 240 100 / 100 Output Total 500 / 500 200 / 200 Balance 0 / 0 -260 / -260 -100 / -100 Intake: IV Fluids 0 / 0 100 / 100 Zosyn 3.375 GM In 0.9 % Sodium 0 / 0 100 / 100 Chloride (Mini-Bag +) 100 ML @ 25 mls/hr IVPB Q8H [facility] Rx#: [id number] Oral 240 / 240 0 / 0 Output: Urine 500 / 500 200 / 200 Other: Meal NPO Stool Characteristics Normal for Patient Weight 82.554 kg 82.4 kg Blood Glucose* 99 Patient Weight 02/11/19 23:59 Weight 82.4 kg - General physical appearance well developed, well nourished, no distress - Eyes normal ocular movement - ENT dry mucosa - Neck Neck exam: trachea midline - Respiratory normal expansion, normal respiratory effort, clear to auscultation - Cardiovascular Cardiovascular exam: Present: NR, irregular rhythm. Absent: bradycardia, tachycardia, regular rhythm, murmurs, clicks, rubs, gallop, distant heart sounds, JVD - Abdomen Abdomen: Present: bowel sounds present, soft, distended (mild), tender (mild RLQ and epigastric ). Absent: non tender, tympanic, organomegaly, masses, guarding, rebound, rigid - Integumentary no rash - Neurologic CN 2-12 grossly intact, normal coordination - Labs 02/11/19 01:15 02/11/19 01:15 Diabetes panel 02/10/19 02/11/19 Range/Units 11:37 01:15 Sodium 134 L 136 (136-145) mEq/L Potassium 3.5 3.2 L (3.5-5.1) mEq/L Chloride 97 L 101 (98-107) mEq/L Carbon Dioxide 28 26 (23-29) mEq/L BUN 6 L 7 L (8-23) mg/dL Creatinine 0.59 L 0.57 L (0.60-1.20) mg/dL Glucose 118 H 106 H (70-105) mg/dL Calcium 9.6 9.5 (8.6-10.3) mg/dL AST 14 (13-39) Units/L ALT 12 (7-52) Units/L Alkaline Phosphatase 52 (34-104) Units/L Albumin 3.9 (3.5-5.7) g/dL Calcium panel 02/10/19 02/11/19 Range/Units 11:37 01:15 Calcium 9.6 9.5 (8.6-10.3) mg/dL Albumin 3.9 (3.5-5.7) g/dL Pituitary panel 02/10/19 02/11/19 Range/Units 11:37 01:15 Sodium 134 L 136 (136-145) mEq/L Potassium 3.5 3.2 L (3.5-5.1) mEq/L Chloride 97 L 101 (98-107) mEq/L Carbon Dioxide 28 26 (23-29) mEq/L BUN 6 L 7 L (8-23) mg/dL Creatinine 0.59 L 0.57 L (0.60-1.20) mg/dL Glucose 118 H 106 H (70-105) mg/dL Calcium 9.6 9.5 (8.6-10.3) mg/dL Adrenal panel 02/10/19 02/11/19 Range/Units 11:37 01:15 Sodium 134 L 136 (136-145) mEq/L Potassium 3.5 3.2 L (3.5-5.1) mEq/L Chloride 97 L 101 (98-107) mEq/L Carbon Dioxide 28 26 (23-29) mEq/L BUN 6 L 7 L (8-23) mg/dL Creatinine 0.59 L 0.57 L (0.60-1.20) mg/dL Glucose 118 H 106 H (70-105) mg/dL Calcium 9.6 9.5 (8.6-10.3) mg/dL Total Bilirubin 1.4 H (0.3-1.0) mg/dL AST 14 (13-39) Units/L ALT 12 (7-52) Units/L Alkaline Phosphatase 52 (34-104) Units/L Albumin 3.9 (3.5-5.7) g/dL Consult Discharge Plan - Plan Referrals: Kumar Ramos MD [Primary Care Provider] - <Theo Garcia - Last Filed: 02/11/19 09:00> Date of Encounter: 02/11/19 - Assessment and Plan (1) Abdominal pain Current Visit: Yes Status: Acute Qualifiers: Abdominal location: unspecified location Qualified Code(s): R10.9 - Unspecified abdominal pain Objective Vital Signs - Last 8 Hours Temp Pulse Resp BP Pulse Ox 02/11/19 08:05 98.4 F 86 18 105/70 98 02/11/19 07:47 18 97 02/11/19 04:19 98.3 F 83 15 119/74 93 Intake and Output 02/10/19 02/11/19 02/11/19 23:59 07:59 15:59 Intake Total 240 / 240 100 / 100 Output Total 500 / 500 200 / 200 Balance -260 / -260 -100 / -100 Intake: IV Fluids 100 / 100 Zosyn 3.375 GM In 0.9 % Sodium 100 / 100 Chloride (Mini-Bag +) 100 ML @ 25 mls/hr IVPB Q8H [facility] Rx#: [id number] Oral 240 / 240 0 / 0 Output: Urine 500 / 500 200 / 200 Other: Meal NPO Weight 82.4 kg Blood Glucose* 99 Patient Weight 02/11/19 23:59 Weight 82.4 kg - Labs 02/11/19 01:15 02/11/19 01:15 Diabetes panel 02/10/19 02/11/19 Range/Units 11:37 01:15 Sodium 134 L 136 (136-145) mEq/L Potassium 3.5 3.2 L (3.5-5.1) mEq/L Chloride 97 L 101 (98-107) mEq/L Carbon Dioxide 28 26 (23-29) mEq/L BUN 6 L 7 L (8-23) mg/dL Creatinine 0.59 L 0.57 L (0.60-1.20) mg/dL Glucose 118 H 106 H (70-105) mg/dL Calcium 9.6 9.5 (8.6-10.3) mg/dL AST 14 (13-39) Units/L ALT 12 (7-52) Units/L Alkaline Phosphatase 52 (34-104) Units/L Albumin 3.9 (3.5-5.7) g/dL Calcium panel 02/10/19 02/11/19 Range/Units 11:37 01:15 Calcium 9.6 9.5 (8.6-10.3) mg/dL Albumin 3.9 (3.5-5.7) g/dL Pituitary panel 02/10/19 02/11/19 Range/Units 11:37 01:15 Sodium 134 L 136 (136-145) mEq/L Potassium 3.5 3.2 L (3.5-5.1) mEq/L Chloride 97 L 101 (98-107) mEq/L Carbon Dioxide 28 26 (23-29) mEq/L BUN 6 L 7 L (8-23) mg/dL Creatinine 0.59 L 0.57 L (0.60-1.20) mg/dL Glucose 118 H 106 H (70-105) mg/dL Calcium 9.6 9.5 (8.6-10.3) mg/dL Adrenal panel 02/10/19 02/11/19 Range/Units 11:37 01:15 Sodium 134 L 136 (136-145) mEq/L Potassium 3.5 3.2 L (3.5-5.1) mEq/L Chloride 97 L 101 (98-107) mEq/L Carbon Dioxide 28 26 (23-29) mEq/L BUN 6 L 7 L (8-23) mg/dL Creatinine 0.59 L 0.57 L (0.60-1.20) mg/dL Glucose 118 H 106 H (70-105) mg/dL Calcium 9.6 9.5 (8.6-10.3) mg/dL Total Bilirubin 1.4 H (0.3-1.0) mg/dL AST 14 (13-39) Units/L ALT 12 (7-52) Units/L Alkaline Phosphatase 52 (34-104) Units/L Albumin 3.9 (3.5-5.7) g/dL - Attending Attestation I have personally seen and examined the patient. I have reviewed pertinent labs, imaging, progress notes, including this one. I have discussed the plan in thorough detail with the resident and nurse practitioner. I agree with the above assessment and plan.
[2019-02-11] MEDS: Pantoprazole 40 MG VIAL IVP SCH (08:12)
--- NOTE | 2019-02-11 08:55 | Internal Med Progress Note ---
<Mai Samson - Last Filed: 02/11/19 13:46> Hospitalist Progress Note - Encounter Date of Encounter: 02/11/19 - Exam Vitals: Temp Pulse Resp BP Pulse Ox 97.7 F 84 18 124/72 94 02/11/19 11:28 02/11/19 11:28 02/11/19 11:28 02/11/19 11:28 02/11/19 11:28 - Assessment and Plan (1) Afib Current Visit: No Status: Chronic (2) Hypertension Current Visit: No Status: Chronic (3) Depression Current Visit: No Status: Chronic (4) DVT prophylaxis Current Visit: No Status: Acute (5) Diverticulitis Current Visit: Yes Status: Acute - Time Spent with Patient Total time spent is greater than 50% in coordination of care (as documented) at patient's floor/unit and/or counseling patient: Internal Medicine: Result - Labs CBC & Chem 7: 02/11/19 01:15 02/11/19 01:15 Labs: Short CBC 02/10/19 02/11/19 Range/Units 17:27 01:15 WBC 10.9 10.3 (4.3-11.1) K/mcL Hgb 14.6 13.7 (11.5-15.4) g/dL Hct 43.1 39.6 (35.3-44.9) % Plt Count 194 166 (140-400) K/mcL Neutrophils # 8.0 (1.6-8.9) K/mcL BMP 02/11/19 01:15 Sodium 136 Potassium 3.2 L Chloride 101 Carbon Dioxide 26 BUN 7 L Creatinine 0.57 L Glucose 106 H Calcium 9.5 Urine 02/10/19 Range/Units 14:08 Urine Color Yellow (Yellow) Urine Clarity Clear (Clear) Urine pH 7.0 (5.0-8.0) pH Units Ur Specific [place] 1.027 H (1.010-1.025) Urine Protein Negative (Neg-Trace) mg/dL Urine Glucose (UA) Normal (Normal) mg/dL - ABG Interpretation ABG results: PT/INR, D-dimer PT 17.0 Seconds (9.4-12.1) H 02/11/19 01:15 - Impressions Impressions Chest X-Ray 02/10/19 18:16 IMPRESSION: Mild lingular and left basilar opacity, atelectasis favored over pneumonia. D/ / 02/10/2019 21:16:40 Wei Wilson MD / Ivonne Buchanan Interpreting Provider: Wei Wilson MD Echocardiogram 02/11/19 16:50 Impressions: LVEF 50%. Indeterminate diastolic function. Normal LV chamber size, wall thickness. Normal right ventricular structure and function. Moderately dilated left atrium. Mild aortic stenosis. Mild-moderate mitral regurgitation. Borderline mild pulmonary hypertension. Left Ventricular Wall Motion: Rest Echo Findings All wall segments showed normal motion. Findings: Study Quality * Technically adequate exam. ECG Findings * Atrial fibrillation. Left Ventricle * LVEF 50%. * Indeterminate diastolic function. * Normal LV chamber size, wall thickness. Right Ventricle * Normal right ventricular structure and function. Left Atrium * Moderately dilated left atrium. Right Atrium * Mildly dilated right atrium. Interatrial Septum * Interatrial septum not well evaluated. Aortic Valve * Aortic valve not well visualized. * Mild aortic stenosis. * Peak aortic velocity is 2.4m/s and mean gradient is 13 mmHg. * No aortic regurgitation. * Moderately sclerotic aortic valve leaflets. Mitral Valve * Normal mitral valve structure. * Mild-moderate mitral regurgitation. * No mitral stenosis. Tricuspid Valve * Mild tricuspid regurgitation. * Borderline mild pulmonary hypertension. * Estimated RVSP is 31 mmHg. * Estimated RA pressure is 5 mmHg. Pulmonic Valve * Pulmonic valve not well visualized. Aorta * Normally sized aortic root. Pericardium * The pericardium appears normal. IVC * Normal IVC dimensions and inspiratory collapse. Pulmonary Artery * Normal visualized portions of the main pulmonary artery. Consult Discharge Plan - Plan Referrals: Kumar Ramos MD [Primary Care Provider] - - Attending Attestation I examined this patient and my medical decision-making was reviewed with the Resident Physician Dr Pizano. I agree with the documented findings, disposition and treatment plan as described except to the extent set forth below. Ms Green is admitted for perforated diverticulitis vs appendix awake, daughter at bedside, abd pain improved, no n/v or fevers chills. gen- alert, awake,appears stated age cv- reg rate and irreg / irreg rhythm, normal s1,s2, no murmurs appreciated, lungs- ctabl, no wheezing, rhonchi or crackles, normal resp effort on ra abd- soft, tender RLQ, non distended, + bs, no guarding or rigidity neuro- AAOx3 Microperforation of the sigmoid with diverticulitis versus microperforation of appendix -surgery following, serial exams, IV zosyn, prn pain and anti emetic IV, strict npo, IVFs Pre Operative risk assessment -given pt known hx CVA, <4METS and plan for possible surgery this admit, d/w surgery and will begin pre op assessment -BNP <300, ekg reviewed and no acute ischemic changes, rate controlled afib, echo reviewed -last echo 2017 and nuclear stress 2018 reviewed -changed eliquis to hep gtt -cards consulted as d/w surg this weekend Afib, rate controlled not on cardizem at home anymore per pt as stopped by outpt provider -hep gtt in case to OR urgently HTN- currently normotensive, hold oral meds and monitor BP further diagnoses and plan as noted by resident <Landon Pizano - Last Filed: 02/11/19 17:30> Hospitalist Progress Note - Encounter Date of Encounter: 02/11/19 Time of Encounter: 09:30 - Subjective Interval History: Ms. Green is doing well today. She endorses that her belly pain is better than yesterday continues to be on day 2 of Zosyn. Patient continues to be afebrile with no evidence of leukocytosis., No vomiting or diarrhea episodes since her admission. So clinical condition seems to be improving, plan for now is to treat her conservatively with nothing by mouth, and the medics antibiotics and fluids. - Exam Vitals: Temp Pulse Resp BP Pulse Ox 98.4 F 86 18 105/70 98 02/11/19 08:05 02/11/19 08:05 02/11/19 08:05 02/11/19 08:05 02/11/19 08:05 Exam: Gen.: Vitals noted. No acute distress. AAOx3, resting comfortably in bed. HEENT: PERRL. EOM limited in left lateral motion in both superior and inferior motions. oropharynx clear, Normocephalic, atraumatic, MMM. Neck: Supple. No adenopathy. No thyroid nodules. Cardiac: A fib-rate controlled , no murmur, +S1/S2, No BLE edema Pulmonary: CTA bilaterally, no wheezes, rales or rhonchi, equal chest expansion, unlabored breathing Abdomen: soft, tender at the McBurneys point but improved from yesterday, BS noted, no guarding, no palpable HSM Skin: warm and dry, no visible lesions. MSK: Muscle strength 5/5 upper and lower extremity . no joint swelling noted, gait no assessed while in bed. Non tender calf or clubbing Neuro: A&Ox3, no facial droop, cranial nerve XII intact, sensory or motor function intact reflexes 2 out of 4, cerebellar function normal Psych: Appropriate mood and behavior, AOx3 - Assessment and Plan (1) Diverticulitis Current Visit: Yes Status: Acute Assessment and Plan: -Patient endorses she had unprovoked abdominal pain that began yesterday evening . She also endorses multiple episodes of nonbloody diarrhea for the past few days. -Denies any history of trauma, no recent travels, no history of Crohn's disease/ulcerative colitis. -CT of abdominal pelvis showed perforated sigmoid diverticulitis with small amount of peritoneum, along with concerns for perforated acute appendicitis -Her vitals in the ED 2 admissions were pretty benign and temperature 98.7. Pulse of 80, respiration of 18, normotensive satting at room air 96%. -Was given Zosyn 3.125 gm q6h in the ED -On physical exam patient does have tenderness at McBurney's point is better than yesterday. No evidence of vomiting or diarrhea since the hospital stay. Continues to be afebrile with no elevated white blood count Plan: -Currently on day 2 Zosyn 3.125 IVP every 6 hours -On the lactate Ringer's at 75 ml/hr -Patient has a history of CVA, < 4 METS with abnormal stress test when she had her last surgery. She also has chronic dyspnea and history of A. fib which is rate controlled -Will obtain echocardiogram in the morning - Cardiology has bene consulted for perioperative risk assessment if she needs surgery in the future -Changed Eliquis to heparin drip for AC -Zofran 4mg IVP PRN -NPO except ice chip. -Gen surgery following (2) Afib Current Visit: No Status: Chronic Assessment and Plan: -Patient is a history of atrial fibrillation with a CHADVASc of 7. -Currently rate controlled -Currently holding her Eliquis and is heparin drip for anticoagulation (3) Hypertension Current Visit: No Status: Chronic Assessment and Plan: -Patient has a history of hypertension -She has been normotensive so far -continue to monitor (4) Depression Current Visit: No Status: Chronic Assessment and Plan: She has a history of depression Takes Lexapro 20 mg by mouth daily Holding her home meds because she is nothing by mouth for her Sx (5) DVT prophylaxis Current Visit: No Status: Acute Assessment and Plan: On heparin gtt. - Time Spent with Patient Total time spent is greater than 50% in coordination of care (as documented) at patient's floor/unit and/or counseling patient: Internal Medicine: Result - Labs CBC & Chem 7: 02/11/19 01:15 02/11/19 01:15 Labs: Short CBC 02/10/19 02/10/19 02/11/19 Range/Units 11:37 17:27 01:15 WBC 11.2 H 10.9 10.3 (4.3-11.1) K/mcL Hgb 14.4 14.6 13.7 (11.5-15.4) g/dL Hct 42.0 43.1 39.6 (35.3-44.9) % Plt Count 191 194 166 (140-400) K/mcL Neutrophils # 9.3 H 8.0 (1.6-8.9) K/mcL BMP 02/10/19 02/11/19 11:37 01:15 Sodium 134 L 136 Potassium 3.5 3.2 L Chloride 97 L 101 Carbon Dioxide 28 26 BUN 6 L 7 L Creatinine 0.59 L 0.57 L Glucose 118 H 106 H Calcium 9.6 9.5 Liver Function 02/10/19 Range/Units 11:37 Total Bilirubin 1.4 H (0.3-1.0) mg/dL Direct Bilirubin 0.3 H (0.0-0.2) mg/dL AST 14 (13-39) Units/L ALT 12 (7-52) Units/L Alkaline Phosphatase 52 (34-104) Units/L Albumin 3.9 (3.5-5.7) g/dL Urine 02/10/19 Range/Units 14:08 Urine Color Yellow (Yellow) Urine Clarity Clear (Clear) Urine pH 7.0 (5.0-8.0) pH Units Ur Specific [place] 1.027 H (1.010-1.025) Urine Protein Negative (Neg-Trace) mg/dL Urine Glucose (UA) Normal (Normal) mg/dL - ABG Interpretation ABG results: PT/INR, D-dimer PT 17.0 Seconds (9.4-12.1) H 02/11/19 01:15 - Impressions Impressions Abdomen/Pelvis CT 02/10/19 11:49 IMPRESSION: Combination of findings is favored to represent perforated sigmoid diverticulitis with a small amount of pneumoperitoneum and no evidence of abscess. However, the appendix is located within the area of right-sided pelvic inflammation, and perforated appendicitis is not excluded D/ / Chandu Schaefer MD / Chandu Schaefer MD Interpreting Provider: Chandu Schaefer MD Chest X-Ray 02/10/19 18:16 IMPRESSION: Mild lingular and left basilar opacity, atelectasis favored over pneumonia. D/ / 02/10/2019 21:16:40 Wei Wilson MD / Ivonne Buchanan Interpreting Provider: Wei Wilson MD <Mai Samson - Last Filed: 02/11/19 13:46> (1) Afib Qualifiers: Atrial fibrillation type: unspecified Qualified Code(s): I48.91 - Unspecified atrial fibrillation (2) Hypertension Qualifiers: Hypertension type: essential hypertension Qualified Code(s): I10 - Essential (primary) hypertension (3) Depression Qualifiers: Depression Type: major depressive disorder Major depression recurrence: single episode Active/Remission status: in full remission Qualified Code(s): F32.5 - Major depressive disorder, single episode, in full remission <Landon Pizano - Last Filed: 02/11/19 17:30> (2) Afib Qualifiers: Atrial fibrillation type: unspecified Qualified Code(s): I48.91 - Unspecified atrial fibrillation (3) Hypertension Qualifiers: Hypertension type: essential hypertension Qualified Code(s): I10 - Essential (primary) hypertension (4) Depression Qualifiers: Depression Type: major depressive disorder Major depression recurrence: single episode Active/Remission status: in full remission Qualified Code(s): F 32.5 - Major depressive disorder, single episode, in full remission
[2019-02-11] MEDS ORDERED: Potassium Chloride 40 MEQ, Lidocaine 1% 2 ML in D5% in Water 500 ML IVPB ONE (11:50)
[2019-02-11] MEDS: Ringers Solution, Lactated 1,000 ML IVC SCH (11:50)
[2019-02-11] MEDS: Heparin 25,000 UNIT/250 ML D5W 25,000 UNIT/250 ML IV.SOLN IVC SCH (11:59)
--- NOTE | 2019-02-11 17:24 | Electrocardiograph Report ---
[place] [id number] Test Date: 2019-02-11 Pat Name: Alanis Green Department: 115 Room: 3A42 Gender: F [employer] Technician: : 1940 Requested By: Landon Pizano Order Number: [id number] Reading MD: Ольга Bellamy Measurements Intervals [place] Rate: 84 P: CT: 0 QRS: 51 QRSD: 93 T: 25 QT: 335 QTc: 376 Interpretive Statements ATRIAL FIBRILLATION WITH ABERRANT CONDUCTION OR VENTRICULAR PREMATURE COMPLEXES NONSPECIFIC ST & T-WAVE ABNORMALITY ABNORMAL RHYTHM ECG Electronically Signed On 02-11-2019 17:22:25 EDT by Ольга Bellamy
[2019-02-12] MEDS: Piperacillin/Tazobactam 3.375 GM in 0.9 % Sodium Chloride Mini Bag 100 ML IVPB SCH ×3 (00:25→17:23)
[2019-02-12 02:14] LABS: Basophils # 0.1 K/mcL (0.0-0.2); Basophils % 0.7 %; Eosinophils # 0.2 K/mcL (0.0-0.6); Eosinophils % 2.2 %; Hematocrit 38.9 % (35.3-44.9); Hemoglobin 13.4 g/dL (11.5-15.4); Immature Granulocytes % 0.3 % (0-4); Lymphocytes # 1.5 K/mcL (0.6-4.6); Lymphocytes % 13.6 %; Mean Corpuscular HGB Conc 34.4 g/dL (31.6-35.5); Mean Corpuscular Hemoglobin 30.5 pg (28.0-33.3); Mean Corpuscular Volume 88.6 fL (83.0-100.0); Mean Platelet Volume 8.7 fL (9.4-12.4); Monocytes % 9.3 %; Platelet Count 176 K/mcL (140-400); Red Blood Count 4.39 M/mcL (3.82-4.97); Red Cell Distribution Width 11.9 % (11.5-14.5); Segmented Neutrophils % 73.9 %
[2019-02-12 02:35] LABS: BUN/Creatinine Ratio 13 (6-26); Blood Urea Nitrogen 7 mg/dL (8-23); Calcium 9.5 mg/dL (8.6-10.3); Carbon Dioxide 26 mEq/L (23-29); Chloride 102 mEq/L (98-107); Glucose 101 mg/dL (70-105); Magnesium 1.7 mg/dL (1.6-2.6); Osmolality,Calculated 282 (280-300); Potassium 3.4 mEq/L (3.5-5.1); Sodium 137 mEq/L (136-145); eGFR For Non-African Americans > 60 (> 60)
[2019-02-12] MEDS: Heparin 25,000 UNIT/250 ML D5W 25,000 UNIT/250 ML IV.SOLN IVC SCH ×2 (06:50→12:12)
--- NOTE | 2019-02-12 06:58 | General Surgery Progress Note ---
<Jian Zaidi - Last Filed: 02/12/19 10:14> Date of Encounter: 02/12/19 Time of Encounter: 06:54 - Assessment and Plan (1) Diverticulitis Current Visit: Yes Status: Acute -Abdominal pain improving from admission -CT abd/plv 02/10/19: Sigmoidal diverticulosis with significant inflammatory stranding, appendix within area of inflammation, no evidence abscess -Wbc trending down from 11.2 on admission and 10.8 today, afebrile, hemodynamically stable -Day 3 pip/tazo and will need 14 days total abx -Fluid collection on CT may be developing abscess -Electrolytes repleted by primary service -Will continue to manage conservatively with goal avoidance of surgical intervention if continues to improve -Trial clear liquid diet this afternoon and if no complications can work towards dc and followup in clinic -Continue abx, pain control, antiemetics, serial abdominal exams Subjective Patient reports: no new complaints, pain is less, voiding w/o difficulty, afebrile Objective Vital Signs - Last 8 Hours Temp Pulse Resp BP Pulse Ox 02/12/19 00:25 98.6 F 97 15 112/81 90 Intake and Output 02/11/19 02/11/19 02/12/19 15:59 23:59 07:59 Intake Total 1100 / 1100 166.1 / 166.1 283.9 / 283.9 Output Total 250 / 250 300 / 300 200 / 200 Balance 850 / 850 -133.9 / -133.9 83.9 / 83.9 Intake: IV Fluids 1100 / 1100 166.1 / 166.1 283.9 / 283.9 Heparin 25,000 UNIT/250 ML D5W 66.1 / 66.1 183.9 / 183.9 25,000 unit In 250 ml @ 14 UNIT /KG/HR 11.558 mls/hr IVC . [id number] [facility] Rx#:[id number] Lactated Ringers 1,000 ML @ 75 1000 / 1000 mls/hr IVC .[id number] [facility] Rx#: [id number] Zosyn 3.375 GM In 0.9 % Sodium 100 / 100 100 / 100 100 / 100 Chloride (Mini-Bag +) 100 ML @ 25 mls/hr IVPB Q8H [facility] Rx#: [id number] Oral 0 / 0 0 / 0 Output: Urine 250 / 250 300 / 300 200 / 200 Other: Meal NPO NPO Blood Glucose* 95 90 - General physical appearance well developed, well nourished, no distress - Eyes normal ocular movement - ENT dry mucosa - Neck Neck exam: trachea midline - Respiratory normal expansion, normal respiratory effort, clear to auscultation - Cardiovascular Cardiovascular exam: Present: NR, irregular rhythm. Absent: RRR, bradycardia, tachycardia, regular rhythm, murmurs, clicks, rubs, gallop, distant heart sounds, JVD - Abdomen Abdomen: Present: bowel sounds present, soft, distended, tender (RLQ, periumbilical/epigastric). Absent: organomegaly, masses, guarding, rebound, rigid - Integumentary no rash - Neurologic CN 2-12 grossly intact, normal coordination - Psychiatric oriented to time, oriented to person, oriented to place, speech is normal - Labs 02/12/19 01:50 02/12/19 01:50 Diabetes panel 02/12/19 Range/Units 01:50 Sodium 137 (136-145) mEq/L Potassium 3.4 L (3.5-5.1) mEq/L Chloride 102 (98-107) mEq/L Carbon Dioxide 26 (23-29) mEq/L BUN 7 L (8-23) mg/dL Creatinine 0.56 L (0.60-1.20) mg/dL Glucose 101 (70-105) mg/dL Calcium 9.5 (8.6-10.3) mg/dL Calcium panel 02/12/19 Range/Units 01:50 Calcium 9.5 (8.6-10.3) mg/dL Pituitary panel 02/12/19 Range/Units 01:50 Sodium 137 (136-145) mEq/L Potassium 3.4 L (3.5-5.1) mEq/L Chloride 102 (98-107) mEq/L Carbon Dioxide 26 (23-29) mEq/L BUN 7 L (8-23) mg/dL Creatinine 0.56 L (0.60-1.20) mg/dL Glucose 101 (70-105) mg/dL Calcium 9.5 (8.6-10.3) mg/dL Adrenal panel 02/12/19 Range/Units 01:50 Sodium 137 (136-145) mEq/L Potassium 3.4 L (3.5-5.1) mEq/L Chloride 102 (98-107) mEq/L Carbon Dioxide 26 (23-29) mEq/L BUN 7 L (8-23) mg/dL Creatinine 0.56 L (0.60-1.20) mg/dL Glucose 101 (70-105) mg/dL Calcium 9.5 (8.6-10.3) mg/dL Consult Discharge Plan - Plan Referrals: Kumar Ramos MD [Primary Care Provider] - <Theo Garcia - Last Filed: 02/12/19 11:20> Date of Encounter: 02/12/19 - Assessment and Plan (1) Abdominal pain Current Visit: Yes Status: Acute Qualifiers: Abdominal location: unspecified location Qualified Code(s): R10.9 - Unspecified abdominal pain Objective Vital Signs - Last 8 Hours Temp Pulse Resp BP Pulse Ox 02/12/19 07:42 98.1 F 80 18 145/84 95 02/12/19 07:40 16 96 Intake and Output 02/11/19 02/12/19 02/12/19 23:59 07:59 15:59 Intake Total 166.1 / 166.1 283.9 / 283.9 18.5 / 18.5 Output Total 300 / 300 200 / 200 Balance -133.9 / -133.9 83.9 / 83.9 18.5 / 18.5 Intake: IV Fluids 166.1 / 166.1 283.9 / 283.9 18.5 / 18.5 Heparin 25,000 UNIT/250 ML D5W 66.1 / 66.1 183.9 / 183.9 18.5 / 18.5 25,000 unit In 250 ml @ 14 UNIT /KG/HR 11.558 mls/hr IVC . [id number] [facility] Rx#:[id number] Zosyn 3.375 GM In 0.9 % Sodium 100 / 100 100 / 100 Chloride (Mini-Bag +) 100 ML @ 25 mls/hr IVPB Q8H [facility] Rx#: [id number] Oral 0 / 0 0 / 0 Output: Urine 300 / 300 200 / 200 Other: Meal NPO Blood Glucose* 95 90 - Labs 02/12/19 01:50 02/12/19 01:50 Diabetes panel 02/12/19 Range/Units 01:50 Sodium 137 (136-145) mEq/L Potassium 3.4 L (3.5-5.1) mEq/L Chloride 102 (98-107) mEq/L Carbon Dioxide 26 (23-29) mEq/L BUN 7 L (8-23) mg/dL Creatinine 0.56 L (0.60-1.20) mg/dL Glucose 101 (70-105) mg/dL Calcium 9.5 (8.6-10.3) mg/dL Calcium panel 02/12/19 Range/Units 01:50 Calcium 9.5 (8.6-10.3) mg/dL Pituitary panel 02/12/19 Range/Units 01:50 Sodium 137 (136-145) mEq/L Potassium 3.4 L (3.5-5.1) mEq/L Chloride 102 (98-107) mEq/L Carbon Dioxide 26 (23-29) mEq/L BUN 7 L (8-23) mg/dL Creatinine 0.56 L (0.60-1.20) mg/dL Glucose 101 (70-105) mg/dL Calcium 9.5 (8.6-10.3) mg/dL Adrenal panel 02/12/19 Range/Units 01:50 Sodium 137 (136-145) mEq/L Potassium 3.4 L (3.5-5.1) mEq/L Chloride 102 (98-107) mEq/L Carbon Dioxide 26 (23-29) mEq/L BUN 7 L (8-23) mg/dL Creatinine 0.56 L (0.60-1.20) mg/dL Glucose 101 (70-105) mg/dL Calcium 9.5 (8.6-10.3) mg/dL - Attending Attestation patient seen and examined. i have reviewed all labs, imaging and notes. i have discussed the case in detail with the resident. i agree with the above assessment and plan and wish to add the following... start CLD, do not advance today cont IV abx activity as tolerated plan to restart home meds on 02/13 if she continues to do well and we advance her diet
[2019-02-12] MEDS: Budesonide/Formoterol 160/4.5 1 PUFF INH IH SCH ×2 (07:40→20:08)
--- NOTE | 2019-02-12 08:50 | Internal Med History&Physical ---
Date of Encounter: 02/12/19 Internal Medicine - H&P: HPI History of present illness: Ms. Geren is a 78 year old female Past Med Surg Social Fam HX - Past Medical History Medical history: atrial fibrillation, CVA, hyperlipidemia, hypertension Additional medical history: brain bleed, Psychiatric history: depression - Past Surgical History Surgical History: no surgical history Additional surgical history: left wrist - Social History Smoking Status: Former smoker Smokeless Tobacco Status: No Alcohol use: none Drug use: none - Family History Father Family Member Ethnicity: Non- Living Status: Hx Family Neuromuscular Disorders: Yes Internal Medicine - H&P: Meds Albuterol Sulfate [Albuterol Inhaler] 2 puff IH Q4H PRN 07/27/16 [History] BuPROPion XL (24 HR) [Wellbutrin Xl] 150 mg PO DAILY 07/27/16 [History] Budesonide/Formoterol 80/4.5 [Symbicort 80/4.5] 2 puff IH BID 07/27/16 [History] Escitalopram [Lexapro] 20 mg PO DAILY 07/27/16 [History] Pantoprazole Sodium [Protonix] 40 mg PO DAILY 07/27/16 [History] Betamethasone Dipropionate 1 appl TP DAILY 01/30/18 [History] Cetirizine HCl [Zyrtec] 10 mg PO DAILY PRN 01/30/18 [History] Famotidine [Heartburn Prevention] 20 mg PO DAILY 01/30/18 [History] Gabapentin [Neurontin] 100 mg PO HS 01/30/18 [History] Losartan/Hydrochlorothiazide [Hyzaar 100-25 Tablet] 1 each PO DAILY 01/30/18 [History] Montelukast [Singulair] 10 mg PO HS 01/30/18 [History] Triamcinolone Acet 0.1% CRM [Kenalog] 1 appl TP BID 01/30/18 [History] hydrOXYzine pamoate [HydrOXYzine Pamoate] 25 mg PO TID PRN 01/30/18 [History] Apixaban [Eliquis] 5 mg PO BID tablet 02/03/18 [Rx] Docusate [Colace] 100 mg PO BID #60 capsule 02/03/18 [Rx] Ascorbate Calcium [Vitamin C] 500 mg PO BID 02/11/19 [History] Carvedilol [Coreg] 6.25 mg PO BID 02/11/19 [History] Ferrous Gluconate 324 mg PO BID 02/11/19 [History] Hydrochlorothiazide [Microzide] 12.5 mg PO DAILY 02/11/19 [History] Rosuvastatin Calcium [Crestor] 40 mg PO DAILY 02/11/19 [History] Allergy/AdvReac Type Severity Reaction Status Date / Time No Known Allergies Allergy Verified 01/30/18 11:00 All Systems PM: A 10-system review of systems was performed and is negative for pertinent findings except as documented above in the HPI. - Constitutional Vitals: Temp Pulse Resp BP Pulse Ox 98.1 F 80 18 145/84 95 02/12/19 07:42 02/12/19 07:42 02/12/19 07:42 02/12/19 07:42 02/12/19 07:42 Internal Med - H&P Results - Labs CBC & Chem 7: 02/12/19 01:50 02/12/19 01:50 Labs: Short CBC 02/12/19 Range/Units 01:50 WBC 10.8 (4.3-11.1) K/mcL Hgb 13.4 (11.5-15.4) g/dL Hct 38.9 (35.3-44.9) % Plt Count 176 (140-400) K/mcL Neutrophils # 8.0 (1.6-8.9) K/mcL BMP 02/12/19 01:50 Sodium 137 Potassium 3.4 L Chloride 102 Carbon Dioxide 26 BUN 7 L Creatinine 0.56 L Glucose 101 Calcium 9.5 - Impressions ITS Impressions Abdomen/Pelvis CT 02/10/19 11:49 IMPRESSION: Combination of findings is favored to represent perforated sigmoid diverticulitis with a small amount of pneumoperitoneum and no evidence of abscess. However, the appendix is located within the area of right-sided pelvic inflammation, and perforated appendicitis is not excluded D/ / Chandu Schaefer MD / Chandu Schaefer MD Interpreting Provider: Chandu Schaefer MD Chest X-Ray 02/10/19 18:16 IMPRESSION: Mild lingular and left basilar opacity, atelectasis favored over pneumonia. D/ / 02/10/2019 21:16:40 Wei Wilson MD / Ivonne Buchanan Interpreting Provider: Wei Wilson MD Echocardiogram 02/11/19 16:50 Impressions: LVEF 50%. Indeterminate diastolic function. Normal LV chamber size, wall thickness. Normal right ventricular structure and function. Moderately dilated left atrium. Mild aortic stenosis. Mild-moderate mitral regurgitation. Borderline mild pulmonary hypertension. Left Ventricular Wall Motion: Rest Echo Findings All wall segments showed normal motion. Findings: Study Quality * Technically adequate exam. ECG Findings * Atrial fibrillation. Left Ventricle * LVEF 50%. * Indeterminate diastolic function. * Normal LV chamber size, wall thickness. Right Ventricle * Normal right ventricular structure and function. Left Atrium * Moderately dilated left atrium. Right Atrium * Mildly dilated right atrium. Interatrial Septum * Interatrial septum not well evaluated. Aortic Valve * Aortic valve not well visualized. * Mild aortic stenosis. * Peak aortic velocity is 2.4m/s and mean gradient is 13 mmHg. * No aortic regurgitation. * Moderately sclerotic aortic valve leaflets. Mitral Valve * Normal mitral valve structure. * Mild-moderate mitral regurgitation. * No mitral stenosis. Tricuspid Valve * Mild tricuspid regurgitation. * Borderline mild pulmonary hypertension. * Estimated RVSP is 31 mmHg. * Estimated RA pressure is 5 mmHg. Pulmonic Valve * Pulmonic valve not well visualized. Aorta * Normally sized aortic root. Pericardium * The pericardium appears normal. IVC * Normal IVC dimensions and inspiratory collapse. Pulmonary Artery * Normal visualized portions of the main pulmonary artery. - Assessment and Plan (1) Diverticulitis Current Visit: Yes Status: Acute - Time Spent With Patient Total time spent is greater than 50% in coordination of care (as documented) at patient's floor/unit and/or counseling patient:
[2019-02-12] MEDS: Ringers Solution, Lactated 1,000 ML IVC SCH ×2 (09:19→11:42)
[2019-02-12] MEDS: Pantoprazole 40 MG VIAL IVP SCH (09:31)
[2019-02-12] MEDS ORDERED: Potassium Chloride 40 MEQ, Lidocaine 1% 2 ML in D5% in Water 500 ML IVPB ONE (09:35)
--- NOTE | 2019-02-12 09:39 | Internal Med Progress Note ---
<Mai Samson - Last Filed: 02/12/19 13:25> Hospitalist Progress Note - Encounter Date of Encounter: 02/12/19 - Exam Vitals: Temp Pulse Resp BP Pulse Ox 98.8 F 98 18 120/79 96 02/12/19 11:44 02/12/19 11:44 02/12/19 11:44 02/12/19 11:44 02/12/19 11:44 - Assessment and Plan (1) Afib Current Visit: No Status: Chronic (2) Hypertension Current Visit: No Status: Chronic (3) Depression Current Visit: No Status: Chronic (4) DVT prophylaxis Current Visit: No Status: Acute (5) Diverticulitis Current Visit: Yes Status: Acute - Time Spent with Patient Total time spent is greater than 50% in coordination of care (as documented) at patient's floor/unit and/or counseling patient: Internal Medicine: Result - Labs CBC & Chem 7: 02/12/19 01:50 02/12/19 01:50 Labs: Short CBC 02/12/19 Range/Units 01:50 WBC 10.8 (4.3-11.1) K/mcL Hgb 13.4 (11.5-15.4) g/dL Hct 38.9 (35.3-44.9) % Plt Count 176 (140-400) K/mcL Neutrophils # 8.0 (1.6-8.9) K/mcL BMP 02/12/19 01:50 Sodium 137 Potassium 3.4 L Chloride 102 Carbon Dioxide 26 BUN 7 L Creatinine 0.56 L Glucose 101 Calcium 9.5 - ABG Interpretation ABG results: PT/INR, D-dimer PT 17.0 Seconds (9.4-12.1) H 02/11/19 01:15 - Impressions Impressions Chest X-Ray 02/10/19 18:16 IMPRESSION: Mild lingular and left basilar opacity, atelectasis favored over pneumonia. D/ : / 02/10/2019 21:16:40 Wei Wilson MD / Ivonne Buchanan Interpreting Provider: Wei Wilson MD Consult Discharge Plan - Plan Referrals: Kumar Ramos MD [Primary Care Provider] - - Attending Attestation I examined this patient and my medical decision-making was reviewed with the Resident Physician Dr Pizano. I agree with the documented findings, disposition and treatment plan as described except to the extent set forth below. Ms Green is admitted for perforated diverticulitis vs appendix awake, daughter at bedside, abd pain improved, no n/v, hungry, surg may trial liquids later today gen- alert, awake,appears stated age cv- reg rate and reg rhythm, normal s1,s2, no murmurs appreciated, lungs- ctabl, no wheezing, rhonchi or crackles, normal resp effort on ra abd- soft, non tender non distended, decreased bs, no guarding or rigidity neuro- AAOx3 Microperforation of the sigmoid with diverticulitis versus microperforation of appendix -surgery following, serial exams, IV abx, will need 14 d total, diet as per surgery Pre Operative risk assessment -changed eliquis to hep gtt as on admit was a potential surgical intervention pt -cards consulted as d/w surg - given surgery team does not feel will need surgical intervention any further, cards consult not done for this reason Afib hx not on cardizem at home anymore per pt as stopped by outpt provider -hep gtt with eliquis held since admit HTN- currently normotensive, hold oral meds and monitor BP Hypokalemia- replete IV as still npo, IV mag further diagnoses and plan as noted by resident <Landon Pizano - Last Filed: 02/12/19 15:24> Hospitalist Progress Note - Encounter Date of Encounter: 02/12/19 Time of Encounter: 09:00 - Subjective Interval History: Seen patient at the bedside. She endorses the belly pain is better continues to be on day 3 of Zosyn. She is afebrile and her white blood count is normal. Her potassium was repleted this morning. - Exam Vitals: Temp Pulse Resp BP Pulse Ox 98.1 F 80 18 145/84 95 02/12/19 07:42 02/12/19 07:42 02/12/19 07:42 02/12/19 07:42 02/12/19 07:42 Exam: Gen.: Vitals noted. No acute distress. AAOx3, resting comfortably in bed. HEENT: PERRL. EOM limited in left lateral motion in both superior and inferior motions. oropharynx clear, Normocephalic, atraumatic, MMM. Neck: Supple. No adenopathy. No thyroid nodules. Cardiac: A fib-rate controlled , no murmur, +S1/S2, No BLE edema Pulmonary: CTA bilaterally, no wheezes, rales or rhonchi, equal chest expansion, unlabored breathing Abdomen: soft, tender at the McBurneys point but improved from yesterday, BS noted, no guarding, no palpable HSM Skin: warm and dry, no visible lesions. MSK: Muscle strength 5/5 upper and lower extremity . no joint swelling noted, gait no assessed while in bed. Non tender calf or clubbing Neuro: A&Ox3, no facial droop, cranial nerve XII intact, sensory or motor function intact reflexes 2 out of 4, cerebellar function normal Psych: Appropriate mood and behavior, AOx3 - Assessment and Plan (1) Diverticulitis Current Visit: Yes Status: Acute Assessment and Plan: -Patient endorses she had unprovoked abdominal pain that began yesterday evening . She also endorses multiple episodes of nonbloody diarrhea for the past few days. -Denies any history of trauma, no recent travels, no history of Crohn's disease/ulcerative colitis. -CT of abdominal pelvis showed perforated sigmoid diverticulitis with small amount of peritoneum, along with concerns for perforated acute appendicitis -Her vitals in the ED 2 admissions were pretty benign and temperature 98.7. Pulse of 80, respiration of 18, normotensive satting at room air 96%. -Was given Zosyn 3.125 gm q6h in the ED -On physical exam patient does have tenderness at McBurney's point is better than yesterday. No evidence of vomiting or diarrhea since the hospital stay. Continues to be afebrile with no elevated white blood count -Currently on day 3 Zosyn 3.125 IVP every 6 hours -On the lactate Ringer's at 75 ml/hr -Trial clear liquid diet this afternoon and if no complications can work towards dc and followup in clinic Plan: -potential discharge tomorrow if patient continues to clinically improve (2) Afib Current Visit: No Status: Chronic Assessment and Plan: -Patient is a history of atrial fibrillation with a CHADVASc of 7. -Currently rate controlled -Currently holding her Eliquis and is heparin drip for anticoagulation -Will Dc heparin tomorrow and start Eliquis if patient can tolerate PO intake (3) Hypertension Current Visit: No Status: Chronic Assessment and Plan: -Patient has a history of hypertension -She has been normotensive so far -continue to monitor (4) Depression Current Visit: No Status: Chronic Assessment and Plan: She has a history of depression Takes Lexapro 20 mg by mouth daily Holding her home meds dissing and tolerated by mouth intake (5) DVT prophylaxis Current Visit: No Status: Acute Assessment and Plan: On heparin gtt. - Time Spent with Patient Total time spent is greater than 50% in coordination of care (as documented) at patient's floor/unit and/or counseling patient: Internal Medicine: Result - Labs CBC & Chem 7: 02/12/19 01:50 02/12/19 01:50 Labs: Short CBC 02/12/19 Range/Units 01:50 WBC 10.8 (4.3-11.1) K/mcL Hgb 13.4 (11.5-15.4) g/dL Hct 38.9 (35.3-44.9) % Plt Count 176 (140-400) K/mcL Neutrophils # 8.0 (1.6-8.9) K/mcL BMP 02/12/19 01:50 Sodium 137 Potassium 3.4 L Chloride 102 Carbon Dioxide 26 BUN 7 L Creatinine 0.56 L Glucose 101 Calcium 9.5 - ABG Interpretation ABG results: PT/INR, D-dimer PT 17.0 Seconds (9.4-12.1) H 02/11/19 01:15 - Impressions Impressions Chest X-Ray 02/10/19 18:16 IMPRESSION: Mild lingular and left basilar opacity, atelectasis favored over pneumonia. D/ : / 02/10/2019 21:16:40 Wei Wilson MD / Ivonne Buchanan Interpreting Provider: Wei Wilson MD Echocardiogram 02/11/19 16:50 Impressions: LVEF 50%. Indeterminate diastolic function. Normal LV chamber size, wall thickness. Normal right ventricular structure and function. Moderately dilated left atrium. Mild aortic stenosis. Mild-moderate mitral regurgitation. Borderline mild pulmonary hypertension. Left Ventricular Wall Motion: Rest Echo Findings All wall segments showed normal motion. Findings: Study Quality * Technically adequate exam. ECG Findings * Atrial fibrillation. Left Ventricle * LVEF 50%. * Indeterminate diastolic function. * Normal LV chamber size, wall thickness. Right Ventricle * Normal right ventricular structure and function. Left Atrium * Moderately dilated left atrium. Right Atrium * Mildly dilated right atrium. Interatrial Septum * Interatrial septum not well evaluated. Aortic Valve * Aortic valve not well visualized. * Mild aortic stenosis. * Peak aortic velocity is 2.4m/s and mean gradient is 13 mmHg. * No aortic regurgitation. * Moderately sclerotic aortic valve leaflets. Mitral Valve * Normal mitral valve structure. * Mild-moderate mitral regurgitation. * No mitral stenosis. Tricuspid Valve * Mild tricuspid regurgitation. * Borderline mild pulmonary hypertension. * Estimated RVSP is 31 mmHg. * Estimated RA pressure is 5 mmHg. Pulmonic Valve * Pulmonic valve not well visualized. Aorta * Normally sized aortic root. Pericardium * The pericardium appears normal. IVC * Normal IVC dimensions and inspiratory collapse. Pulmonary Artery * Normal visualized portions of the main pulmonary artery. <Mai Samson - Last Filed: 02/12/19 13:25> (1) Afib Qualifiers: Atrial fibrillation type: unspecified Qualified Code(s): I48.91 - Unspecified atrial fibrillation (2) Hypertension Qualifiers: Hypertension type: essential hypertension Qualified Code(s): I10 - Essential (primary) hypertension (3) Depression Qualifiers: Depression Type: major depressive disorder Major depression recurrence: single episode Active/Remission status: in full remission Qualified Code(s): F32.5 - Major depressive disorder, single episode, in full remission <Landon Pizano - Last Filed: 02/12/19 15:24> (2) Afib Qualifiers: Atrial fibrillation type: unspecified Qualified Code(s): I48.91 - Unspecified atrial fibrillation (3) Hypertension Qualifiers: Hypertension type: essential hypertension Qualified Code(s): I10 - Essential (primary) hypertension (4) Depression Qualifiers: Depression Type: major depressive disorder Major depression recurrence: single episode Active/Remission status: in full remission Qualified Code(s): F32.5 - Major depressive disorder, single episode, in full remission
[2019-02-13] MEDS: Piperacillin/Tazobactam 3.375 GM in 0.9 % Sodium Chloride Mini Bag 100 ML IVPB SCH ×2 (01:29→08:08)
[2019-02-13 06:18] LABS: Basophils % 0.4 %; Eosinophils # 0.4 K/mcL (0.0-0.6); Eosinophils % 5.2 %; Hematocrit 38.3 % (35.3-44.9); Hemoglobin 12.8 g/dL (11.5-15.4); Immature Granulocytes % 0.3 % (0-4); Lymphocytes # 1.2 K/mcL (0.6-4.6); Mean Corpuscular HGB Conc 33.4 g/dL (31.6-35.5); Mean Corpuscular Hemoglobin 30.7 pg (28.0-33.3); Mean Corpuscular Volume 91.8 fL (83.0-100.0); Mean Platelet Volume 8.9 fL (9.4-12.4); Monocytes # 0.7 K/mcL (0.0-1.3); Monocytes % 9.6 %; Neutrophils # 4.5 K/mcL (1.6-8.9); Platelet Count 188 K/mcL (140-400); Red Blood Count 4.17 M/mcL (3.82-4.97); Red Cell Distribution Width 11.8 % (11.5-14.5); Segmented Neutrophils % 66.5 %
[2019-02-13 06:20] LABS: BUN/Creatinine Ratio 10 (6-26); Blood Urea Nitrogen 5 mg/dL (8-23); Calcium 9.2 mg/dL (8.6-10.3); Carbon Dioxide 27 mEq/L (23-29); Chloride 105 mEq/L (98-107); Glucose 107 mg/dL (70-105); Magnesium 2.1 mg/dL (1.6-2.6); Osmolality,Calculated 284 (280-300); Potassium 3.3 mEq/L (3.5-5.1); Sodium 138 mEq/L (136-145); eGFR For Non-African Americans > 60 (> 60)
--- NOTE | 2019-02-13 06:39 | General Surgery Progress Note ---
<Jian Zaidi - Last Filed: 02/13/19 08:13> Date of Encounter: 02/13/19 Time of Encounter: 06:37 - Assessment and Plan (1) Diverticulitis Current Visit: Yes Status: Acute -Abdominal pain improving from admission -CT abd/plv 02/10/19: Sigmoidal diverticulosis with significant inflammatory stranding, appendix within area of inflammation, no evidence abscess -Wbc trending down from 11.2 on admission and 6.8 today, afebrile, hemodynamically stable -Day 4 pip/tazo and will need 14 days total abx -Fluid collection on CT may be developing abscess -Electrolytes repleted by primary service -Will continue to manage conservatively with goal avoidance of surgical intervention if continues to improve -Will advance her diet today to fulls and then softs tonight -Can restart home anticoagulation today -Transition IV abx to PO today -If tolerates diet well, ok to dc when primary service ready and will followup in clinic with Dr Garcia in 1-[address] abd/plv w iv/po contrast day before clinic f/u -Surgery will sign off today and will see in clinic Subjective Patient reports: no new complaints, feels better, tolerating liquids well, voiding w/o difficulty, bowel movement, afebrile Objective Vital Signs - Last 8 Hours Temp Pulse Resp BP Pulse Ox 02/13/19 03:46 98.1 F 83 18 132/82 92 Intake and Output 02/12/19 02/12/19 02/13/19 15:59 23:59 07:59 Intake Total 852.5 / 852.5 154.2 / 154.2 124 / 124 Output Total 200 / 200 600 / 600 Balance 652.5 / 652.5 -445.8 / -445.8 124 / 124 Intake: IV Fluids 372.5 / 372.5 154.2 / 154.2 124 / 124 Heparin 25,000 UNIT/250 ML D5W 18.5 / 18.5 54.2 / 54.2 124 / 124 25,000 unit In 250 ml @ 14 UNIT /KG/HR 11.558 mls/hr IVC . [id number] [facility] Rx#:[id number] Lactated Ringers 1,000 ML @ 75 150 / 150 mls/hr IVC .[id number] [facility] Rx#: [id number] Magnesium Sulfate 2 GM In 0.9 % 104 / 104 Sodium Chloride 100 ML @ 52 mls/hr IVPB Q2H [facility] Rx#: [id number] Zosyn 3.375 GM In 0.9 % Sodium 100 / 100 100 / 100 Chloride (Mini-Bag +) 100 ML @ 25 mls/hr IVPB Q8H [facility] Rx#: [id number] Oral 480 / 480 Output: Urine 600 / 600 Urine/Stool Mix 200 / 200 Other: Stool Size Moderate Small Stool Consistency soft loose Stool Characteristics Normal for Patient Stool Color Brown Brown Weight 83 kg Blood Glucose* 156 Patient Weight 02/13/19 23:59 Weight 83 kg - General physical appearance well developed, well nourished, no distress - Eyes normal ocular movement - ENT dry mucosa - Neck Neck exam: trachea midline - Respiratory normal expansion, normal respiratory effort, clear to auscultation - Cardiovascular Cardiovascular exam: Present: RRR. Absent: bradycardia, tachycardia, irregular rhythm, murmurs, clicks, rubs, gallop, distant heart sounds, JVD - Abdomen Abdomen: Present: bowel sounds present (hypoactive), soft, non tender, distended (mild). Absent: tender, organomegaly, masses, guarding, rebound, rigid - Integumentary no rash - Neurologic CN 2-12 grossly intact, normal coordination - Psychiatric oriented to time, oriented to person, oriented to place, speech is normal - Labs 02/13/19 05:35 02/13/19 05:35 Diabetes panel 02/13/19 Range/Units 05:35 Sodium 138 (136-145) mEq/L Potassium 3.3 L (3.5-5.1) mEq/L Chloride 105 (98-107) mEq/L Carbon Dioxide 27 (23-29) mEq/L BUN 5 L (8-23) mg/dL Creatinine 0.52 L (0.60-1.20) mg/dL Glucose 107 H (70-105) mg/dL Calcium 9.2 (8.6-10.3) mg/dL Calcium panel 02/13/19 Range/Units 05:35 Calcium 9.2 (8.6-10.3) mg/dL Pituitary panel 02/13/19 Range/Units 05:35 Sodium 138 (136-145) mEq/L Potassium 3.3 L (3.5-5.1) mEq/L Chloride 105 (98-107) mEq/L Carbon Dioxide 27 (23-29) mEq/L BUN 5 L (8-23) mg/dL Creatinine 0.52 L (0.60-1.20) mg/dL Glucose 107 H (70-105) mg/dL Calcium 9.2 (8.6-10.3) mg/dL Adrenal panel 02/13/19 Range/Units 05:35 Sodium 138 (136-145) mEq/L Potassium 3.3 L (3.5-5.1) mEq/L Chloride 105 (98-107) mEq/L Carbon Dioxide 27 (23-29) mEq/L BUN 5 L (8-23) mg/dL Creatinine 0.52 L (0.60-1.20) mg/dL Glucose 107 H (70-105) mg/dL Calcium 9.2 (8.6-10.3) mg/dL Consult Discharge Plan - Plan Referrals: Theo Garcia MD [Non-Partnered Physician] - 03/04/19 2:05 pm Prescriptions: RX: Amoxicillin/Clavulanate [Augmentin] 875 mg PO BIDWM #18 tablet RX: Potassium Chloride 40 meq PO DAILY #5 tab.er.prt <Theo Garcia - Last Filed: 02/14/19 11:58> Date of Encounter: 02/14/19 - Assessment and Plan (1) Abdominal pain Current Visit: Yes Status: Acute Qualifiers: Abdominal location: unspecified location Qualified Code(s): R10.9 - Unspecified abdominal pain Objective Vital Signs - Last 8 Hours Temp Pulse Resp BP Pulse Ox 02/14/19 07:50 98.1 F 90 18 158/78 96 02/14/19 07:35 16 95 02/14/19 04:29 98.1 F 93 16 132/87 95 Intake and Output 02/13/19 02/14/19 02/14/19 23:59 07:59 15:59 Output Total 350 / 350 600 / 600 100 / 100 Balance -350 / -350 -600 / -600 -100 / -100 Output: Urine 350 / 350 600 / 600 100 / 100 Other: Weight 84.3 kg Patient Weight 02/14/19 23:59 Weight 84.3 kg - Labs 02/14/19 05:29 02/14/19 05:29 Diabetes panel 02/14/19 Range/Units 05:29 Sodium 140 (136-145) mEq/L Potassium 4.2 D (3.5-5.1) mEq/L Chloride 105 (98-107) mEq/L Carbon Dioxide 25 (23-29) mEq/L BUN 5 L (8-23) mg/dL Creatinine 0.49 L (0.60-1.20) mg/dL Glucose 92 (70-105) mg/dL Calcium 9.4 (8.6-10.3) mg/dL Calcium panel 02/14/19 Range/Units 05:29 Calcium 9.4 (8.6-10.3) mg/dL Pituitary panel 02/14/19 Range/Units 05:29 Sodium 140 (136-145) mEq/L Potassium 4.2 D (3.5-5.1) mEq/L Chloride 105 (98-107) mEq/L Carbon Dioxide 25 (23-29) mEq/L BUN 5 L (8-23) mg/dL Creatinine 0.49 L (0.60-1.20) mg/dL Glucose 92 (70-105) mg/dL Calcium 9.4 (8.6-10.3) mg/dL Adrenal panel 02/14/19 Range/Units 05:29 Sodium 140 (136-145) mEq/L Potassium 4.2 D (3.5-5.1) mEq/L Chloride 105 (98-107) mEq/L Carbon Dioxide 25 (23-29) mEq/L BUN 5 L (8-23) mg/dL Creatinine 0.49 L (0.60-1.20) mg/dL Glucose 92 (70-105) mg/dL Calcium 9.4 (8.6-10.3) mg/dL - Attending Attestation have personally seen and examined the patient. I have reviewed pertinent labs, imaging, progress notes, including this one. I have discussed the plan in thorough detail with the resident and nurse practitioner. I agree with the above assessment and plan and wish to add the following... follow up in two weeks in my clinic will need Ct w PO and IV contrast prior to clinic will need PO abx upon discharge
[2019-02-13] MEDS: Budesonide/Formoterol 160/4.5 1 PUFF INH IH SCH ×2 (07:53→20:06)
[2019-02-13] MEDS: Pantoprazole 40 MG VIAL IVP SCH (08:09)
[2019-02-13] MEDS: Saline Nasal Spray 44 ML BOTTLE NS PRN ×2 (10:32→18:29)
[2019-02-13] MEDS: Heparin 25,000 UNIT/250 ML D5W 25,000 UNIT/250 ML IV.SOLN IVC SCH (11:14)
--- NOTE | 2019-02-13 11:29 | Internal Med Progress Note ---
<Gabino Tello - Last Filed: 02/13/19 18:24> Hospitalist Progress Note - Encounter Date of Encounter: 02/13/19 - Exam Vitals: Temp Pulse Resp BP Pulse Ox 98.0 F 86 14 161/85 95 02/13/19 18:02 02/13/19 18:02 02/13/19 18:02 02/13/19 18:02 02/13/19 18:02 - Assessment and Plan (1) Perforation of sigmoid colon due to diverticulitis Current Visit: Yes Status: Acute (2) Afib Current Visit: No Status: Chronic (3) Hypertension Current Visit: No Status: Chronic (4) Depression Current Visit: No Status: Chronic (5) DVT prophylaxis Current Visit: No Status: Acute (6) Diverticulitis Current Visit: Yes Status: Acute (7) Anemia Current Visit: No Status: Acute - Time Spent with Patient Total time spent is greater than 50% in coordination of care (as documented) at patient's floor/unit and/or counseling patient: Internal Medicine: Result - Labs CBC & Chem 7: 02/13/19 05:35 02/13/19 05:35 Labs: Short CBC 02/13/19 Range/Units 05:35 WBC 6.8 (4.3-11.1) K/mcL Hgb 12.8 (11.5-15.4) g/dL Hct 38.3 (35.3-44.9) % Plt Count 188 (140-400) K/mcL Neutrophils # 4.5 (1.6-8.9) K/mcL BMP 02/13/19 05:35 Sodium 138 Potassium 3.3 L Chloride 105 Carbon Dioxide 27 BUN 5 L Creatinine 0.52 L Glucose 107 H Calcium 9.2 - ABG Interpretation ABG results: PT/INR, D-dimer PT 17.0 Seconds (9.4-12.1) H 02/11/19 01:15 Consult Discharge Plan - Plan Referrals: Theo Garcia MD [Non-Partnered Physician] - 03/04/19 2:05 pm - Attending Attestation I examined this patient and my medical decision-making was reviewed with the Resident Physician on 02/13/19. I agree with the documented findings, disposition and treatment plan as described except to the extent set forth below. Ms Green is currently admitted for acute diverticulitis. She remains moderate to high risk due to potential for worsening clinical status. Ms Green is up and about. No fever or chills. Tolerating diet today. No CP or SOB. Exam alert Comfortable Mucus membranes dry Heart irreg and not tachy No wheeze Abd soft No edema I/P 1. Diverticulitis - advance diet 2. Chronic a fib 3. HTN - controlled 4. Depression - resumed meds Further diagnoses and plan as above. Anticipate d/c to SNF tomorrow. <Landon Pizano - Last Filed: 02/13/19 21:47> Hospitalist Progress Note - Encounter Date of Encounter: 02/13/19 Time of Encounter: 09:30 - Subjective Interval History: no acute events overnight. Patient is tolerating liquid diet and being transitioned to advanced diet. Patient continues to be afebrile, non-leukocyto tic and belly pain is better. We started her back on Eliquis for anti- coagulation and discontinuing her heparin drip. I am also transitioning her from IV Zosyn to by mouth Augmentin 875 mg to cover for enterococcus infection in the gut. Her potassium was a little low today and was given 40 by mouth potassium chloride. - Exam Vitals: Temp Pulse Resp BP Pulse Ox 97.7 F 83 18 133/82 92 02/13/19 08:07 02/13/19 03:46 02/13/19 08:07 02/13/19 08:07 02/13/19 08:07 Exam: Gen.: Vitals noted. No acute distress. AAOx3, resting comfortably in bed. HEENT: PERRL. EOM limited in left lateral motion in both superior and inferior motions. oropharynx clear, Normocephalic, atraumatic, MMM. Neck: Supple. No adenopathy. No thyroid nodules. Cardiac: A fib-rate controlled , no murmur, +S1/S2, No BLE edema Pulmonary: CTA bilaterally, no wheezes, rales or rhonchi, equal chest expansion, unlabored breathing Abdomen: soft, belly pain improved from yesterday, BS noted, no guarding, no palpable HSM Skin: warm and dry, no visible lesions. MSK: Muscle strength 5/5 upper and lower extremity . no joint swelling noted, gait no assessed while in bed. Non tender calf or clubbing Neuro: A&Ox3, no facial droop, cranial nerve XII intact, sensory or motor function intact reflexes 2 out of 4, cerebellar function normal Psych: Appropriate mood and behavior, AOx3 - Assessment and Plan (1) Diverticulitis Current Visit: Yes Status: Acute Assessment and Plan: -Patient endorses she had unprovoked abdominal pain that began yesterday evening . She also endorses multiple episodes of nonbloody diarrhea for the past few days. -Denies any history of trauma, no recent travels, no history of Crohn's disease/ulcerative colitis. -CT of abdominal pelvis showed perforated sigmoid diverticulitis with small amount of peritoneum, along with concerns for perforated acute appendicitis -Her vitals in the ED 2 admissions were pretty benign and temperature 98.7. Pulse of 80, respiration of 18, normotensive satting at room air 96%. -Was given Zosyn 3.125 gm q6h in the ED -On physical exam patient does have tenderness at McBurney's point is better than yesterday. No evidence of vomiting or diarrhea since the hospital stay. Continues to be afebrile with no elevated white blood count -On the lactate Ringer's at 75 ml/hr -Tolerating regular diet Plan:- -Transitioned from IV Zosyn to by mouth Augmentin. Cannot do ciprofloxacin or Flagyl because of history of atrial fibrillation and abnormal stress test in the past. -Resumed other home medications. -potential discharge to SNF tomorrow tomorrow if patient continues to clinically improve (2) Afib Current Visit: No Status: Chronic Assessment and Plan: -Patient is a history of atrial fibrillation with a CHADVASc of 7. -Currently rate controlled -Discontinued her heparin drip and patient is currently back on Eliquis because she's tolerating PO intake (3) Hypertension Current Visit: No Status: Chronic Assessment and Plan: -Patient has a history of hypertension -currently BP 155/60 - Started on her home Coreg 125 twice a day, holding off on her hydrochlorothiazide because of hypokalemia this morning -continue to monitor (4) Depression Current Visit: No Status: Chronic Assessment and Plan: She has a history of depression Resumed her Lexapro 20 mg by mouth daily Will Resume her wellbutyrin once her BP normalizes (5) DVT prophylaxis Current Visit: No Status: Acute Assessment and Plan: On Eliquis. - Time Spent with Patient Total time spent is greater than 50% in coordination of care (as documented) at patient's floor/unit and/or counseling patient: Internal Medicine: Result - Labs CBC & Chem 7: 02/13/19 05:35 02/13/19 05:35 Labs: Short CBC 02/13/19 Range/Units 05:35 WBC 6.8 (4.3-11.1) K/mcL Hgb 12.8 (11.5-15.4) g/dL Hct 38.3 (35.3-44.9) % Plt Count 188 (140-400) K/mcL Neutrophils # 4.5 (1.6-8.9) K/mcL BMP 02/13/19 05:35 Sodium 138 Potassium 3.3 L Chloride 105 Carbon Dioxide 27 BUN 5 L Creatinine 0.52 L Glucose 107 H Calcium 9.2 - ABG Interpretation ABG results: PT/INR, D-dimer PT 17.0 Seconds (9.4-12.1) H 02/11/19 01:15 <Gabino Tello - Last Filed: 02/13/19 18:24> (2) Afib Qualifiers: Atrial fibrillation type: chronic Qualified Code(s): I48.2 - Chronic atrial fibrillation (3) Hypertension Qualifiers: Hypertension type: essential hypertension Qualified Code(s): I10 - Essential (primary) hypertension (4) Depression Qualifiers: Depression Type: major depressive disorder Major depression recurrence: single episode Active/Remission status: in full remission Qualified Code(s): F32.5 - Major depressive disorder, single episode, in full remission (7) Anemia Qualifiers: Anemia type: iron deficiency Qualified Code(s): D50.8 - Other iron deficiency anemias <Landon Pizano - Last Filed: 02/13/19 21:47> (2) Afib Qualifiers: Atrial fibrillation type: chronic Qualified Code(s): I48.2 - Chronic atrial fibrillation (3) Hypertension Qualifiers: Hypertension type: essential hypertension Qualified Code(s): I10 - Essential (primary) hypertension (4) Depression Qualifiers: Depression Type: major depressive disorder Major depression recurrence: single episode Active/Remission status: in full remission Qualified Code(s): F32.5 - Major depressive disorder, single episode, in full remission
[2019-02-13] MEDS: Apixaban 5 MG TABLET PO SCH ×2 (13:58→20:21)
[2019-02-14 06:31] LABS: Basophils % 0.5 %; Eosinophils # 0.3 K/mcL (0.0-0.6); Eosinophils % 6.2 %; Hematocrit 36.6 % (35.3-44.9); Hemoglobin 12.4 g/dL (11.5-15.4); Immature Granulocytes % 0.4 % (0-4); Lymphocytes # 1.1 K/mcL (0.6-4.6); Lymphocytes % 19.1 %; Mean Corpuscular HGB Conc 33.9 g/dL (31.6-35.5); Mean Corpuscular Hemoglobin 30.2 pg (28.0-33.3); Mean Corpuscular Volume 89.3 fL (83.0-100.0); Mean Platelet Volume 10.3 fL (9.4-12.4); Monocytes # 0.6 K/mcL (0.0-1.3); Monocytes % 10.5 %; Neutrophils # 3.5 K/mcL (1.6-8.9); Platelet Count 158 K/mcL (140-400); Red Cell Distribution Width 11.7 % (11.5-14.5); Segmented Neutrophils % 63.3 %
[2019-02-14 06:44] LABS: BUN/Creatinine Ratio 10 (6-26); Blood Urea Nitrogen 5 mg/dL (8-23); Calcium 9.4 mg/dL (8.6-10.3); Carbon Dioxide 25 mEq/L (23-29); Chloride 105 mEq/L (98-107); Glucose 92 mg/dL (70-105); Osmolality,Calculated 287 (280-300); Potassium 4.2 mEq/L (3.5-5.1); Sodium 140 mEq/L (136-145); eGFR For Non-African Americans > 60 (> 60)
[2019-02-14] MEDS: Budesonide/Formoterol 160/4.5 1 PUFF INH IH SCH (07:34)
--- NOTE | 2019-02-14 07:45 | Physician Discharge Referral ---
ExtendedCare Referral Info Transfer To: [facility] Provider in Charge after Transfer: PCP Institutional Level of Care: Skilled - Diagnosis (1) Afib Priority: Secondary Status: Chronic (2) Hypertension Priority: Secondary Status: Chronic (3) Depression Priority: Secondary Status: Chronic (4) DVT prophylaxis Priority: Secondary Status: Acute (5) Diverticulitis Priority: Primary Status: Acute Prognosis: Fair Aware of Diagnosis: Patient Aware of Prognosis: Patient - Transfer Medications Prescriptions: Amoxicillin/Clavulanate [Augmentin] 875 mg PO BIDWM #18 tablet Potassium Chloride 40 meq PO DAILY #5 tab.er.prt Home Medications: Albuterol Sulfate [Albuterol Inhaler] 2 puff IH Q4H PRN 07/27/16 [History] BuPROPion XL (24 HR) [Wellbutrin Xl] 150 mg PO DAILY 07/27/16 [History] Budesonide/Formoterol 80/4.5 [Symbicort 80/4.5] 2 puff IH BID 07/27/16 [History] Escitalopram [Lexapro] 20 mg PO DAILY 07/27/16 [History] Pantoprazole Sodium [Protonix] 40 mg PO DAILY 07/27/16 [History] Betamethasone Dipropionate 1 appl TP DAILY 01/30/18 [History] Cetirizine HCl [Zyrtec] 10 mg PO DAILY PRN 01/30/18 [History] Famotidine [Heartburn Prevention] 20 mg PO DAILY 01/30/18 [History] Gabapentin [Neurontin] 100 mg PO HS 01/30/18 [History] Losartan/Hydrochlorothiazide [Hyzaar 100-25 Tablet] 1 each PO DAILY 01/30/18 [History] Montelukast [Singulair] 10 mg PO HS 01/30/18 [History] Triamcinolone Acet 0.1% CRM [Kenalog] 1 appl TP BID 01/30/18 [History] hydrOXYzine pamoate [HydrOXYzine Pamoate] 25 mg PO TID PRN 01/30/18 [History] Apixaban [Eliquis] 5 mg PO BID tablet 02/03/18 [Rx] Docusate [Colace] 100 mg PO BID #60 capsule 02/03/18 [Rx] Ascorbate Calcium [Vitamin C] 500 mg PO BID 02/11/19 [History] Carvedilol [Coreg] 6.25 mg PO BID 02/11/19 [History] Ferrous Gluconate 324 mg PO BID 02/11/19 [History] Hydrochlorothiazide [Microzide] 12.5 mg PO DAILY 02/11/19 [History] Rosuvastatin Calcium [Crestor] 40 mg PO DAILY 02/11/19 [History] Amoxicillin/Clavulanate [Augmentin] 875 mg PO BIDWM #18 tablet 02/14/19 [Rx] Potassium Chloride 40 meq PO DAILY #5 tab.er.prt 02/14/19 [Rx] Allergies/Adverse Reactions: Allergy/AdvReac Type Severity Reaction Status Date / Time No Known Allergies Allergy Verified 01/30/18 11:00 - Respiratory Orders Smoking Cessation: Smoking cessation has been advised. For more information, call the [place] Tobacco Quit Line at 7-504-DHFU-NOW. - Advance Directives Code Status: Full Code - Mobility Orders Ambulate - Rehabiliation Orders Rehab Potential: Fair - Diet Orders Mechanical Soft (advance as tolerated) CERTIFICATION: I certify that the transfer of the above named patient to an Extended Care Facility is necessary for the continuing treatment of the diagnosis listed. The above information is true and accurate reflection of patient's current condition. Confidential - Redisclosure prohibited without a patient's written consent.
--- NOTE | 2019-02-14 07:45 | Discharge Summary ---
<Gabino Tello - Last Filed: 02/14/19 13:17> Date of Encounter: 02/14/19 - Discharge Diagnosis (1) Afib Status: Chronic Qualifiers: Atrial fibrillation type: chronic Qualified Code(s): I48.2 - Chronic atrial fibrillation (2) Hypertension Status: Chronic Qualifiers: Hypertension type: essential hypertension Qualified Code(s): I10 - Es sential (primary) hypertension (3) Depression Status: Chronic Qualifiers: Depression Type: major depressive disorder Major depression recurrence: single episode Active/Remission status: in full remission Qualified Code(s): F32.5 - Major depressive disorder, single episode, in full remission (4) DVT prophylaxis Status: Acute (5) Diverticulitis Status: Acute (6) Perforation of sigmoid colon due to diverticulitis Priority: Primary Status: Acute Hospital course: Ms. Green is a 78 year old female - Time Spent with Patient Total time spent providing and/or coordinating discharge services: 35min - Discharge Medications Prescriptions: New Amoxicillin/Clavulanate [Augmentin] 875 mg PO BIDWM #18 tablet Potassium Chloride 40 meq PO DAILY #5 tab.er.prt Continue Escitalopram [Lexapro] 20 mg PO DAILY BuPROPion XL (24 HR) [Wellbutrin Xl] 150 mg PO DAILY Albuterol Sulfate [Albuterol Inhaler] 2 puff IH Q4H PRN PRN Reason: Shortness Of Breath Budesonide/Formoterol 80/4.5 [Symbicort 80/4.5] 2 puff IH BID Pantoprazole Sodium [Protonix] 40 mg PO DAILY Montelukast [Singulair] 10 mg PO HS hydrOXYzine pamoate [HydrOXYzine Pamoate] 25 mg PO TID PRN PRN Reason: Anxiety Triamcinolone Acet 0.1% CRM [Kenalog] 1 appl TP BID Losartan/Hydrochlorothiazide [Hyzaar 100-25 Tablet] 1 each PO DAILY Gabapentin [Neurontin] 100 mg PO HS Famotidine [Heartburn Prevention] 20 mg PO DAILY Cetirizine HCl [Zyrtec] 10 mg PO DAILY PRN PRN Reason: Allergy Symptoms Betamethasone Dipropionate 1 appl TP DAILY Apixaban [Eliquis] 5 mg PO BID tablet Docusate [Colace] 100 mg PO BID #60 capsule Ascorbate Calcium [Vitamin C] 500 mg PO BID Carvedilol [Coreg] 6.25 mg PO BID Ferrous Gluconate 324 mg PO BID Hydrochlorothiazide [Microzide] 12.5 mg PO DAILY Rosuvastatin Calcium [Crestor] 40 mg PO DAILY Home Medications: Albuterol Sulfate [Albuterol Inhaler] 2 puff IH Q4H PRN 07/27/16 [History] BuPROPion XL (24 HR) [Wellbutrin Xl] 150 mg PO DAILY 07/27/16 [History] Budesonide/Formoterol 80/4.5 [Symbicort 80/4.5] 2 puff IH BID 07/27/16 [History] Escitalopram [Lexapro] 20 mg PO DAILY 07/27/16 [History] Pantoprazole Sodium [Protonix] 40 mg PO DAILY 07/27/16 [History] Betamethasone Dipropionate 1 appl TP DAILY 01/30/18 [History] Cetirizine HCl [Zyrtec] 10 mg PO DAILY PRN 01/30/18 [History] Famotidine [Heartburn Prevention] 20 mg PO DAILY 01/30/18 [History] Gabapentin [Neurontin] 100 mg PO HS 01/30/18 [History] Losartan/Hydrochlorothiazide [Hyzaar 100-25 Tablet] 1 each PO DAILY 01/30/18 [History] Montelukast [Singulair] 10 mg PO HS 01/30/18 [History] Triamcinolone Acet 0.1% CRM [Kenalog] 1 appl TP BID 01/30/18 [History] hydrOXYzine pamoate [HydrOXYzine Pamoate] 25 mg PO TID PRN 01/30/18 [History] Apixaban [Eliquis] 5 mg PO BID tablet 02/03/18 [Rx] Docusate [Colace] 100 mg PO BID #60 capsule 02/03/18 [Rx] Ascorbate Calcium [Vitamin C] 500 mg PO BID 02/11/19 [History] Carvedilol [Coreg] 6.25 mg PO BID 02/11/19 [History] Ferrous Gluconate 324 mg PO BID 02/11/19 [History] Hydrochlorothiazide [Microzide] 12.5 mg PO DAILY 02/11/19 [History] Rosuvastatin Calcium [Crestor] 40 mg PO DAILY 02/11/19 [History] Amoxicillin/Clavulanate [Augmentin] 875 mg PO BIDWM #18 tablet 02/14/19 [Rx] Potassium Chloride 40 meq PO DAILY #5 tab.er.prt 02/14/19 [Rx] Allergies/Adverse Reactions: Allergy/AdvReac Type Severity Reaction Status Date / Time No Known Allergies Allergy Verified 01/30/18 11:00 Date of admission: 02/10/19 16:10 Primary care physician: Kumar Ramos MD Consults: 02/10/19 14:03 Consult to Surgery [CONS] Stat Consulting Provider: Surgery [facility] Reason for Consult: perforated sigmoid diverticulitis vs. perforated appendicitis Time Notified: 14:04 Call Completed: Yes 02/10/19 17:52 Consult to Dress Finisher [CONS] Routine Reason for SW Consult: patient has home health aid. 02/11/19 09:03 Consult to Dress Finisher [CONS] Routine Reason for SW Consult: daughter wants to talk with ss about mom going to [facility] for short time 02/11/19 15:53 Consult to Physical Therapy [CONS] Routine Comment: Evaluate, develop and implement POC Reason for Consult: Increased weakness; deconditioning Does patient have active BEDREST order?: No Is patient medically & hemodynamically stable?: Yes Patient assessed for mobility or mobilized this visit?: No 02/11/19 15:54 Consult to Occupational Therapy [CONS] Routine Comment: Evaluate, develop and implement POC Reason for Consult: Increased weakness; deconditioning Does patient have active BEDREST order?: No Is patient medically & hemodynamically stable?: Yes Patient assessed for mobility or mobilized this visit?: No - Constitutional Vitals: Temp Pulse Resp BP Pulse Ox 98.1 F 90 18 158/78 96 02/14/19 07:50 02/14/19 07:50 02/14/19 07:50 02/14/19 07:50 02/14/19 07:50 - Patient Status Disposition: Transfer SNF Condition: Fair - Ambulatory Orders Ambulatory Orders: CT abd pelvis w iv and oral [CT] Time Frame: 1 Week, Location: Determined By Patient - Discharge Instructions Follow Up With: Theo Garcia MD [Non-Partnered Physician] - 03/04/19 2:05 pm - Attending Attestation I examined this patient and my medical decision-making was reviewed with the Resident Physician on 02/14/19. I agree with the documented findings, disposition and treatment plan as described except to the extent set forth below. Ms Green has been admitted for acute diverticulitis with perforation. She has been treated with IV abx and evaluated by surgery. She has improved and is tolerating a soft diet. She is now afebrile and ready for discharge to SNF. Exam alert Comfortable Mucus membranes dry Heart not tachy No wheeze Plan D/C to SNF today. <LuceroDawit fam - Last Filed: 02/14/19 13:25> - NOTES TO OUTPATIENT PROVIDER Notes to Outpatient Provider: Admitted for abdominal pain which is thought to be secondary to perforated sigmoid diverticulitis. Managed conservatively with antibiotics and bowel rest. Tolerating diet well and will follow up with general surgery as outpatient. Disposition to [facility] facility for short-term rehabilitation Date of Encounter: 02/14/19 Time of Encounter: 09:10 - Discharge Diagnosis (1) Afib Priority: Secondary Status: Chronic Qualifiers: Atrial fibrillation type: chronic Qualified Code(s): I48.2 - Chronic atrial fibrillation (2) Hypertension Priority: Secondary Status: Chronic Qualifiers: Hypertension type: essential hypertension Qualified Code(s): I10 - Essential (primary) hypertension (3) Depression Priority: Secondary Status: Chronic Qualifiers: Depression Type: major depressive disorder Major depression recurrence: single episode Active/Remission status: in full remission Qualified Code(s): F32.5 - Major depressive disorder, single episode, in full remission (4) DVT prophylaxis Priority: Secondary Status: Acute (5) Diverticulitis Priority: Primary Status: Acute Hospital course: Ms. Green is a 78 year old female with past medical history of CVA, h ypertension, atrial fibrillation, hyperlipidemia who presents to emergency department with complaint of abdominal pain. Pain was associated with left lower quadrant and epigastric pain as well as multiple episodes of nonbloody diarrhea without nausea or vomiting. Vital signs in the emergency department were within normal limits and she was tolerating room air. Laboratory results were grossly unremarkable except for mild hypokalemia, mildly elevated bilirubin of 1.4. Imaging in the emergency department including a CT of the abdomen and pelvis showed combination of findings favored to represent perforated sigmoid diverticulitis with small amount of pneumoperitoneum and no abscess. Gen. surgery was consulted and she was admitted for further evaluation and management. Throughout course of hospital stay, patient did gradually improve with resolution of her abdominal pain. She was treated conservatively with broad- spectrum antimicrobials including Zosyn. Per general surgery recommendations, diet was gradually weaned reduced and she was tolerating without any symptoms of nausea, vomiting, worsening pain. She remained afebrile throughout course of hospital stay. She was evaluated by PT/OT and was recommended to undergo SNF placement for short-term rehabilitation. Patient is agreeable with this plan. On day of discharge, her symptoms have vastly improved and she is experiencing only minimal amount of abdominal pain. She is tolerating diet and is medically stable for discharge at this time. She will complete a total of 14 day course of antimicrobials, 5 days of Zosyn, 9 days of Augmentin. All questions were answered and she will follow up with general surgery, PCP and will have a outpatient CT scan 1 week prior to general surgery appointment. Discharge discussed with: patient, social work, case management - Time Spent with Patient Total time spent providing and/or coordinating discharge services: Date of admission: 02/10/19 16:10 Primary care physician: Kumar Ramos MD Consults: 02/10/19 14:03 Consult to Surgery [CONS] Stat Consulting Provider: Surgery [facility] Reason for Consult: perforated sigmoid diverticulitis vs. perforated appendicitis Time Notified: 14:04 Call Completed: Yes 02/10/19 17:52 Consult to Dress Finisher [CONS] Routine Reason for SW Consult: patient has home health aid. 02/11/19 09:03 Consult to Dress Finisher [CONS] Routine Reason for Consult: daughter wants to talk with ss about mom going to [facility] for short time 02/11/19 15:53 Consult to Physical Therapy [CONS] Routine Comment: Evaluate, develop and implement POC Reason for Consult: Increased weakness; deconditioning Does patient have active BEDREST order?: No Is patient medically & hemodynamically stable?: Yes Patient assessed for mobility or mobilized this visit?: No 02/11/19 15:54 Consult to Occupational Therapy [CONS] Routine Comment: Evaluate, develop and implement POC Reason for Consult: Increased weakness; deconditioning Does patient have active BEDREST order?: No Is patient medically & hemodynamically stable?: Yes Patient assessed for mobility or mobilized this visit?: No Discharging clinician: Dawit Butcher Anticipated date of discharge: 02/14/19 - Constitutional Vitals: Temp Pulse Resp BP Pulse Ox 98.1 F 93 16 132/87 95 02/14/19 04:29 02/14/19 04:29 02/14/19 07:35 02/14/19 04:29 02/14/19 07:35 Exam: Gen.: Vitals noted. No acute distress. AAO, resting comfortably in bed. HEENT: PERRL/EOMI, oropharynx clear, Normocephalic, atraumatic, MMM Cardiac: Irregularly irregular, no murmur, +S1/S2, No BLE edema Pulmonary: CTA bilaterally, no wheezes, rales or rhonchi, equal chest expansion, unlabored breathing Abdomen: soft, minimally tender to epigastric and left lower quadrant, BS noted, no guarding, no palpable HSM Skin: warm and dry, no visible lesions. MSK: ROM not assessed, no joint swelling noted, gait no assessed while in bed. Non tender calf or clubbing Neuro: A&Ox3, moves all extremities, no focal deficits, sensation intact Psych: Appropriate mood and behavior, AOx3 - Patient Status Overall status at discharge: patient is progressing back to baseline - Diet and Activity Activity: increase activity as tolerated, return to work once cleared by your PCP/specialist, resume usual activities as tolerated Diet: advance to your usual diet (as tolerated), low fat, low cholesterol
[2019-02-14 08:11] VITALS: BP 158/78
[2019-02-14] MEDS ORDERED: BuPROPion XL (24 HR) 150 MG TABLET PO SCH (09:00)
[2019-02-14] MEDS: Apixaban 5 MG TABLET PO SCH (11:12)
[2019-02-14] MEDS: Saline Nasal Spray 44 ML BOTTLE NS PRN (11:13)
== END 2019-02-14 16:25 | DRG 392 ==
LOC: EMEROOARM 11:18 → SUATTDRO 16:10 → 3ANU 16:10
PROVIDERS: ADMIT Internal Medicine; ATTEND Internal Medicine